=== PATIENT | male | born 1985 | race Caucasian/White ===

== ENCOUNTER 2020-07-31 14:59 | Emergency (ER) | payer OTHER, SELFPAY ==
[2020-07-31 15:32] VITALS: BP 130/80; PULSE 92; RESP 18; TEMP 37.3; O2SAT 95; BMI 40.1
--- NOTE | 2020-07-31 15:51 | XR_ITS ---
EXAMINATION: XR CHEST CLINICAL INFORMATION: Cough. COMPARISON: 04/09/2019 chest radiographs. TECHNIQUE: Frontal view of the chest was obtained. FINDINGS: No significant abnormality is noted involving the heart, lungs, mediastinum, bony thorax or soft tissues. XR/XR chest 1V IMPRESSION: No acute cardiopulmonary process.
--- NOTE | 2020-07-31 16:45 | ED.GENADULT ---
HPI - General Adult General Chief complaint: Upper Respiratory Symptoms Stated complaint: covid symptoms Time Seen by Provider: 07/31/20 15:50 Source: patient Mode of arrival: ambulatory Limitations: no limitations History of Present Illness HPI narrative: 35-year-old male with history of asthma reports that has had some nasal congestion and cough for the past couple days causing his asthma to flare with slight wheezing. He also reports he has had some GI symptoms of diarrhea last week that resolved. In addition he also reports that he has a slight in red area in the left suprapubic area. He denies any abdominal pain, chest pain, shortness of breath. No fever. No recent travel or sick contacts. Additionally requesting COVID test Onset (ago): day(s) Severity: mild Relieving factors: none Exacerbating factors: none Treatments prior to arrival: none Related Data Previous Rx's Medication Instructions Recorded albuterol sulfate 90 mcg/actuation 2 puff INHALATION Q2H PRN #8.5 g 07/09/20 aerosol inhaler cyclobenzaprine 10 mg tablet 10 mg PO BEDTIME PRN 20 Days #20 07/13/20 tab azithromycin [Zithromax Z-Nima] 250 mg PO DAILY 5 Days #6 tab 07/31/20 mupirocin 1 applic TOPICAL BID #15 g 07/31/20 prednisone 60 mg PO DAILY 5 Days #15 tab 07/31/20 Allergies Allergy/AdvReac Type Severity Reaction Status Date / Time doxycycline [DOXYCYCLINE] Allergy Intermediate HIVES Verified 07/31/20 15:32 morphine [MORPHINE] Allergy Intermediate CHEST PAIN Verified 07/31/20 15:32 Penicillins [PENICILLINS] Allergy Intermediate HIVES Verified 07/31/20 15:32 bees Allergy Unknown Swelling Verified 07/31/20 15:32 Doxycycline Hyclate Allergy Unknown Rash Verified 07/31/20 15:32 medical tape Allergy Unknown Rash Verified 07/31/20 15:32 naproxen Allergy Unknown Rash Verified 07/31/20 15:32 Sulfa (Sulfonamide Allergy Unknown Tongue Verified 07/31/20 15:32 Antibiotics) swelling, hives sulfamethoxazole Allergy Unknown HIVES Verified 07/31/20 15:32 [From BACTRIM] trimethoprim [From BACTRIM] Allergy Unknown HIVES Verified 07/31/20 15:32 Hazelnut Allergy Unknown rash Uncoded 04/19/20 00:00 Review of Systems Review of Systems: Constitutional: No Weight loss, No Fever, No Chills, No Night Sweats, No Fatigue, No Malaise ENT/Mouth: No Hearing loss, No Ear Pain, + Nasal Congestion, No Sinus Pain, No Hoarseness, No sore throat, No Rhinorrhea, No Swallowing Difficulty Eyes: No Eye Pain, No Swelling, No Redness, No Foreign Body, No Discharge, No Vision Changes Cardiovascular: No Chest Pain, No SOB, No Dyspnea on Exertion, No Orthopnea, No Edema, No Palpitations Respiratory: mild Cough, No Sputum, + Wheezing, No Smoke Exposure, No Dyspnea Gastrointestinal: No Nausea, No Vomiting, No Diarrhea, No Constipation, No abdominal Pain, No Hematochezia, No Melena Genitourinary: no irregular bleeding, No Dysuria, No Urinary Frequency, No Hematuria, No Urinary Incontinence, No Urgency, No Flank Pain, No Urinary Flow Changes, No Hesitancy Musculoskeletal: No joint pain, No Myalgias, No Joint Swelling Skin: No Skin Lesions, No rash Neuro: No Weakness, No Numbness, No Paresthesias, No Loss of Consciousness, No Dizziness, No Headache Psych: No Anxiety/Panic, No Depression, No SI/HI/AH/VH, No Social Issues Heme/Lymph: No Bruising, No Bleeding,No Lymphadenopathy Endocrine: No Polyuria, No Polydipsia, No Temperature Intolerance Yes all other systems are reviewed and are negative [facility] Past Medical History Source: unable to obtain Medical History (Updated 07/31/20 @ 16:46 by Tima Kellogg NP) Severe persistent allergic asthma Social History Social History Advance Directives: No Advance Directives Information Provided: Yes Physical Exam Vital Signs: Vital Signs: Last Vital Signs Temp 99.2 F 07/31/20 15:32 Pulse 92 07/31/20 15:32 Resp 18 07/31/20 15:32 BP 130/80 07/31/20 15:32 Pulse Ox 95 07/31/20 15:32 Body Mass Index 40.1 Reviewed Const: General: cooperative and healthy appearing; No acute distress or intoxicated appearing Nutritional Appearance: average body habitus Orientation/consciousness: patient oriented x3 HENMT: Head: Yes normal to inspection Ears: hearing grossly normal bilaterally Eyes: General: appearance normal, both eyes and all related structures Visual Stone: normal visual stone by confrontation Neck: Neck: Yes normal visual inspection, No positive Brudzinski's sign, No positive Kernig's sign and No tender Thyroid: Thyroid normal Chest: Chest palpation & inspection: normal inspection of the chest Resp: Effort & Inspection: normal respiratory effort Auscultation: clear to auscultation bilaterally Cardio: Jugular venous distension: no JVD GI: Inspection: Yes normal to inspection Percussion: Yes normal to percussion Auscultation: normal bowel sounds : General: Yes no CVA tenderness Back/Spine/Pelvis: Back: no CVA tenderness Skin: General skin exam: no rashes or lesions noted Full body images: 1. less than 0.5 cm annular area of erythema at the follicular base consistent with folliculitis. Neuro: General: patient oriented x3 Extrem: General: Yes normal to inspection Course Course Course Narrative: Well nontoxic appearing. Chest x-ray negative. Hemodynamically stable. Clear precaution return follow-up instructions provided. Feel comfortable plan. Ambulatory Steady/Ferreira gait. Stable for discharge. Discharge Plan Discharge Clinical Impression: Upper respiratory infection, Folliculitis, Viral syndrome Patient Disposition: Home, Self-Care Instructions: Folliculitis (ED), Viral Syndrome (ED) Prescriptions: New mupirocin 2 % ointment 1 applic topical BID Qty: 15 RF: 0 prednisone 20 mg tablet 60 mg PO DAILY 5 Days Qty: 15 RF: 0 azithromycin [Zithromax Z-Nima] 250 mg tablet 250 mg PO DAILY 5 Days Qty: 6 RF: 0 No Action albuterol sulfate 90 mcg/actuation HFA aerosol inhaler 2 puff inhalation Q2H PRN (Reason: shortness of breath or wheezing) Qty: 8.5 RF: 1 cyclobenzaprine 10 mg tablet 10 mg PO BEDTIME PRN (Reason: muscle spasm) 20 Days Qty: 20 RF: 0 Referrals: Leroy Harley, [employer] MAINTAINER-BC [Primary Care Provider] - 5 days ( phone visit)
== END 2020-07-31 17:44 | disposition home or self-care (01) ==
PROVIDERS: Nurse Practitioner Primary Care; Emergency Provider Internal Medicine; PCP Nurse Practitioner Family
DX: J06.9 Acute upper respiratory infection, unspecified (principal); B34.9 Viral infection, unspecified; L73.9 Follicular disorder, unspecified; R05 Cough; Z20.828 Contact with and (suspected) exposure to other viral communicable diseases; Z79.899 Other long term (current) drug therapy
CPT/HCPCS: 71045; 87071; 87880; 99283; U0003

== ENCOUNTER 2020-08-07 23:04 | Emergency (ER) | payer OTHER, SELFPAY ==
[2020-08-07 23:06] VITALS: BP 137/93; PULSE 88; RESP 16; TEMP 35.9; O2SAT 97; BMI 40.1
--- NOTE | 2020-08-07 23:59 | ECG_ITS ---
Test Reason : CHEST PAIN Blood Pressure : / mmHG Vent. Rate : 085 BPM Atrial Rate : 085 BPM P-R Int : 160 ms QRS Dur : 086 ms QT Int : 362 ms P-R-T Axes : 015 007 001 degrees QTc Int : 430 ms Normal sinus rhythm Normal ECG No previous ECGs available Referred By: Renata Evans Electronically Signed By:PAMELA WALTON MD
--- NOTE | 2020-08-08 00:05 | XR_ITS ---
EXAMINATION: XR CHEST CLINICAL INFORMATION: Cough COMPARISON: 07/31/2020 TECHNIQUE: Frontal view of the chest was obtained. FINDINGS: No focal consolidation, pulmonary edema, or pleural effusion. Stable cardiomediastinal silhouette. XR/XR chest 1V IMPRESSION: Unremarkable examination.
--- NOTE | 2020-08-08 00:13 | ED_ITS ---
HPI - Asthma General Chief Complaint: General Medical Stated Complaint: Cough Time Seen by Provider: 08/07/20 23:56 Source: patient Mode of arrival: ambulatory Limitations: no limitations History of Present Illness HPI Narrative: This is a 35-year-old male with history severe persistent allergic asthma who states that he has just completed a course of antibiotics and 1 week of steroids with recurrence of his epigastric discomfort that he previously had for approximately 6 months. On review of his records chest x- ray, COVID-19 were both negative for any acute findings. Patient denies any recent travel, ear pain, but is having some sore throat that he feels is associated with his cough. Otherwise, he denies any nausea, vomiting, diarrhea, urinary pain/ burning /frequency. Related Data Previous Rx's Medication Instructions Recorded albuterol sulfate 90 mcg/actuation 2 puff INHALATION Q2H PRN #8.5 g 07/09/20 aerosol inhaler mupirocin 1 applic TOPICAL BID #15 g 07/31/20 cyclobenzaprine 10 mg tablet 10 mg PO BEDTIME PRN #20 tab 08/01/20 fluticasone propionate [Flovent 1 inh INHALATION Q12H #2 ea 08/08/20 Diskus] omeprazole 40 mg PO DAILY 30 Days #30 cap 08/08/20 Allergies Allergy/AdvReac Type Severity Reaction Status Date / Time doxycycline [DOXYCYCLINE] Allergy Intermediate HIVES Verified 07/31/20 15:32 morphine [MORPHINE] Allergy Intermediate CHEST PAIN Verified 07/31/20 15:32 Penicillins [PENICILLINS] Allergy Intermediate HIVES Verified 07/31/20 15:32 bees Allergy Unknown Swelling Verified 07/31/20 15:32 Doxycycline Hyclate Allergy Unknown Rash Verified 07/31/20 15:32 medical tape Allergy Unknown Rash Verified 07/31/20 15:32 naproxen Allergy Unknown Rash Verified 07/31/20 15:32 Sulfa (Sulfonamide Allergy Unknown Tongue Verified 07/31/20 15:32 Antibiotics) swelling, hives sulfamethoxazole Allergy Unknown HIVES Verified 07/31/20 15:32 [From BACTRIM] trimethoprim [From BACTRIM] Allergy Unknown HIVES Verified 07/31/20 15:32 Hazelnut Allergy Unknown rash Uncoded 04/19/20 00:00 Review of Systems Review of Systems: Pertinent positives and negatives as stated in HPI 10 point review of systems otherwise negative. PMFSH Past Medical History Source: nursing notes reviewed Medical History Severe persistent allergic asthma Social History Social History Smoking Status: Never smoker Advance Directives: No Advance Directives Information Provided: No Physical Exam Vital Signs: Vital Signs: Last Vital Signs Temp 96.6 F L 08/07/20 23:06 Pulse 84 08/08/20 00:51 Resp 16 08/07/20 23:06 BP 137/93 H 08/07/20 23:06 Pulse Ox 97 08/07/20 23:06 Body Mass Index 40.1 VITAL SIGNS: Reviewed. GENERAL: Well developed, well nourished, in no acute distress. HEAD: Normocephalic/atraumatic, EYES: PERRLA, EOMI intact without pain, no nystagmus/pallor/icterus noted EARS: Ext canals without abnormality, TMs non-bulging and non-erythematous NOSE: Nares patent bilateral OROPHARYNX: no oral lesions noted, posterior pharynx clear and non-erythematous without noted tonsillar enlargement/erythema/exudates NECK: Supple, no adenopathy LUNGS: Normal breath sounds. No adventitious sounds or accessory muscle use. SpO2<97> CARDIOVASCULAR: Regular rate and rhythm without noted murmurs, no JVD or lower extremity edema. ABDOMEN: Soft, non-tender, non-distended with bowel sounds. No rigidity. No guarding. No palpable masses or hernias noted MUSCULOSKELETAL: No tenderness, deformities, or effusions noted on gross inspection. EXTREMITIES: No cyanosis, clubbing or edema. SKIN: Inspection of the skin reveals no rashes, ulcerations, jaundice, pallor, or petechiae. NEUROLOGIC: Alert and oriented x 4. Strength and sensation to light touch were grossly intact x 4. Course Course Course Narrative: This is a 35-year-old male with history and clinical presentation most consistent with likely acid reflux irritating the vocal cords and the back of the throat secondary to steroid course as there are no acute findings on clinical exam to suggest a pharyngitis. Will pursue chest x-ray, EKG, and D-dimer but otherwise patient will receive a an albuterol treatment and a GI cocktail and will likely be discharged on a course of antacids. On review of all investigations there is no acute findings on chest x-ray and D-dimer is negative as well as EKG without any acute changes to suggest ischemia. All results and findings were discussed with the patient at bedside and he was discharged in stable condition. MDM - Asthma Lab Data Labs: Lab Results 08/08/20 Range/Units 00:20 D-Dimer < 200 NG/ML ECG Data Attestation: I personally reviewed and interpreted this ECG as follows: Prior ECG tracings: not available for review Interpretation: normal sinus rhythm, HR - 85, no evidence of acute ischemia, LA/QRS/QTC are within normal limits. Discharge Plan Discharge Clinical Impression: Severe persistent allergic asthma Acid reflux Qualifiers: Esophagitis presence: esophagitis presence not specified Qualified Code(s): K21.9 - Gastro-esophageal reflux disease without esophagitis Patient Disposition: Home, Self-Care Instructions: Diet for Stomach Ulcers and Gastritis (ED), Gastroesophageal Reflux Disease (ED) Additional Instructions: 1. Resume all home medications as prescribed. 2. begin using Flonase daily as an additional adjunct to your Zyrtec to improve symptom control. 3. 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 The patient and/or family acknowledge understanding of results (as applicable), diagnosis, treatment plan, need for follow up, and symptoms that should prompt a return to the emergency room. Prescriptions: New Flovent Diskus 100 mcg/actuation blister with device 1 inh inhalation Q12H Qty: 2 RF: 0 omeprazole 40 mg capsule,delayed release(DR/EC) 40 mg PO DAILY 30 Days Qty: 30 RF: 0 No Action albuterol sulfate 90 mcg/actuation HFA aerosol inhaler 2 puff inhalation Q2H PRN (Reason: shortness of breath or wheezing) Qty: 8.5 RF: 1 cyclobenzaprine 10 mg tablet 10 mg PO BEDTIME PRN (Reason: for muscle spasm) Qty: 20 RF: 0 mupirocin 2 % ointment 1 applic topical BID Qty: 15 RF: 0
[2020-08-08 00:34] LABS: D Dimer < 200 NG/ML
[2020-08-08] MEDS: Albuterol Sulfate (0.083%) 2.5 MG/3 ML VIAL.NEB INHALE (00:50)
[2020-08-08 00:51] VITALS: PULSE 84; O2SAT 98
== END 2020-08-08 02:00 | disposition home or self-care (01) ==
PROVIDERS: Emergency Provider Student in an Organized Health Care Education/Training Program; PCP Nurse Practitioner Family
DX: J45.50 Severe persistent asthma, uncomplicated (principal); K21.9 Gastro-esophageal reflux disease without esophagitis; R05 Cough; Z79.899 Other long term (current) drug therapy; Z20.828 Contact with and (suspected) exposure to other viral communicable diseases
CPT/HCPCS: 36415; 71045; 85379; 93005; 94640; 99283

== ENCOUNTER 2020-09-22 15:48 | Outpatient (REF) | payer OTHER, SELFPAY ==
--- NOTE | 2020-09-22 15:50 | CT_ITS ---
EXAMINATION: CT ABDOMEN WITHOUT CONTRAST CLINICAL INFORMATION: Abdominal pain. COMPARISON: None TECHNIQUE: Contiguous axial thin section helical images of the abdomen were performed with oral 450 mL Redicat contrast. No IV contrast was given. The data set was reformatted in the coronal and sagittal planes and reviewed on an independent workstation. This CT examination was performed using dose optimization techniques as appropriate, variously including the following: *Automated exposure control *Adjustment of mA and/or kV according to patient size (this includes techniques or standardized protocols for targeted exams where dose is matched to indication/reason for exam; i.e. extremities or head) *Use of iterative reconstruction technique DLP: 628 mGy-cm FINDINGS: LUNG BASES: Minimal plate-like atelectasis seen in the right lung base. LIVER, GALLBLADDER, BILIARY TREE: The liver is homogeneous in density, normal size and normal contour. No focal lesion or intrahepatic ductal dilatation seen. The gallbladder is unremarkable. PANCREAS: Pancreas is normal size and density. The peripancreatic fat borders is preserved. SPLEEN: Unremarkable. ADRENAL GLANDS AND KIDNEYS: The adrenal glands are unremarkable. Both kidneys are normal size, shape and position. BOWEL LOOPS: There is scattered stool and gas seen throughout the colon without significant distention. The small bowel loops are normal caliber. The stomach is nondistended. No free air or free fluid seen. LYMPH NODES: No abnormal retroperitoneal pelvic lymph nodes seen. VASCULAR: Unremarkable. BONES: No lytic or sclerotic process seen. CT/CT abdomen wo con IMPRESSION: Unremarkable CT abdomen with oral contrast.
[2020-09-22] MEDS: Barium Sulfate Oral (Mocha) 450 ML ORAL.SUSP PO (16:58)
== END 2020-09-22 15:49 | disposition home or self-care (01) ==
LOC: HO.CT 15:48
PROVIDERS: Visit Provider Nurse Practitioner Family
DX: R10.9 Unspecified abdominal pain (principal)
CPT/HCPCS: 74150

== ENCOUNTER 2020-10-03 22:13 | Emergency (ER) | payer OTHER, SELFPAY ==
[2020-10-03 22:21] VITALS: BP 141/82; PULSE 98; RESP 16; TEMP 36.9; O2SAT 96; BMI 40.1
--- NOTE | 2020-10-03 22:40 | ED.EXTPRO ---
HPI - Extremity Problem General Chief complaint: Extremity Problem Stated complaint: leg pain Time Seen by Provider: 10/03/20 22:27 Source: patient Mode of arrival: ambulatory Limitations: no limitations History of Present Illness HPI Narrative: burning in both legs from knee down worse with walking, no trauma, no new medications, no GI illness, no weakness MD Complaint: extremity pain Onset (ago): day(s) (4) Pain Consistency: constant Location: left, right and lower extremity Quality: burning Radiation: none Relieving factors: nothing Exacerbating factors: walking Associated symptoms: denies other symptoms Related Data Previous Rx's Medication Instructions Recorded albuterol sulfate 90 mcg/actuation 2 puff INHALATION Q2H PRN #8.5 g 07/09/20 aerosol inhaler mupirocin 1 applic TOPICAL BID #15 g 07/31/20 fluticasone propionate [Flovent 1 inh INHALATION Q12H #2 ea 08/08/20 Diskus] cetirizine 10 mg tablet 10 mg PO DAILY #90 tab 08/27/20 omeprazole 40 mg capsule,delayed 40 mg PO DAILY 30 Days #30 cap 09/01/20 release cyclobenzaprine 10 mg tablet 10 mg PO BEDTIME PRN 30 Days #30 09/15/20 tab allopurinol 100 mg tablet 100 mg PO DAILY 90 Days #90 tab 09/20/20 colchicine 0.6 mg tablet 0.6 mg PO DAILY PRN 10 Days #30 tab 09/20/20 diazepam [Valium] 5 mg PO TID PRN #10 tab 10/03/20 Allergies Allergy/AdvReac Type Severity Reaction Status Date / Time doxycycline [DOXYCYCLINE] Allergy Intermediate HIVES Verified 09/01/20 10:41 morphine [MORPHINE] Allergy Intermediate CHEST PAIN Verified 09/01/20 10:41 Penicillins [PENICILLINS] Allergy Intermediate HIVES Verified 09/01/20 10:41 bees Allergy Unknown Swelling Verified 09/01/20 10:41 Doxycycline Hyclate Allergy Unknown Rash Verified 09/01/20 10:41 hazelnut Allergy Unknown Rash Verified 09/01/20 10:41 medical tape Allergy Unknown Rash Verified 09/01/20 10:41 naproxen Allergy Unknown Rash Verified 09/01/20 10:41 Sulfa (Sulfonamide Allergy Unknown Tongue Verified 09/01/20 10:41 Antibiotics) swelling, hives sulfamethoxazole Allergy Unknown HIVES Verified 09/01/20 10:41 [From BACTRIM] trimethoprim [From BACTRIM] Allergy Unknown HIVES Verified 09/01/20 10:41 Review of Systems Review of Systems: Constitutional : No Fever, No Chills ENT/Mouth : No Ear Pain, No Hoarseness, No sore throat Eyes: No Eye Pain, No Swelling, No Redness, No Foreign Body Cardiovascular : No Chest Pain, No SOB Respiratory : No Cough, No Dyspnea Gastrointestinal : No Nausea, No Vomiting, No Diarrhea, No abdominal Pain Genitourinary : No Dysuria, No Hematuria Musculoskeletal : positive joint pain (right knee feels sore at medial aspect along tibia), No Myalgias, No Joint Swelling Skin : No Skin lacerations, No rash Neuro : No Weakness, No Numbness, No Loss of Consciousness, No Dizziness, No Headache Psych : No Anxiety/Panic, No Depression All other systems reviewed and are negative [facility] Past Medical History Attestation statement: The following information was validated with the patient. Medical History Left carpal tunnel syndrome Medial epicondylitis, left elbow Severe persistent allergic asthma Surgical History History of inguinal hernia repair History of shoulder surgery S/P debridement Family History Family History Father Diabetes mellitus Mother No problems noted. Maternal Grandmother CVD (cardiovascular disease) Cancer Brother No problems noted. Sister No problems noted. Son No problems noted. Daughter No problems noted. Social History Social History (Updated 10/03/20 @ 22:40 by Ngoc Kaufman DO) Smoking Status: Former smoker Use of substances other than those prescribed or required for medical reasons: No Advance Directives: No Advance Directives Information Provided: No Physical Exam Vital Signs: Vital Signs: Last Vital Signs Temp 98.4 F 10/03/20 22:21 Pulse 98 10/03/20 22:21 Resp 16 10/03/20 22:21 BP 141/82 H 10/03/20 22:21 Pulse Ox 96 10/03/20 22:21 Body Mass Index 40.1 Appearance: Alert. Oriented X3. No acute distress. Eyes: Pupils equal, round and reactive to light. ENT: Pharynx normal. Neck: Normal inspection. Neck supple. CVS: Normal heart rate and rhythm. Pulses normal. Respiratory: No respiratory distress. Breath sounds normal. Abdomen: Soft and nontender. Skin: Skin warm and dry. Normal skin color. Normal skin turgor. Extremities: No lower extremity edema. No calf ttp SILT throughout, no swelling, no rash, no clonus Neuro: Oriented X 3. No motor deficit. No sensory deficit. Course Course Course Narrative: no weakness, sensation intact, doubt GBS burning pain mostly when walking, lyme pending will refer to PCP MDM - Extremity (Nontraumatic) MDM Narrative Medical decision making narrative: 35 yo male with GERD, allergies, asthma here with burning in both legs x 4 days worse with walking, distal pulses 2+, no signs of infection or swelling - does not have diabetes and sees his doctor regularly, no signs of infection, bounding pulses doubt PVD, no known neuropathy, will obtain lytes and lyme test, give MR and refer to PCP Lab Data Result diagrams: 10/03/20 22:50 10/03/20 22:50 Labs: Lab Results 10/03/20 10/03/20 10/03/20 Range/Units 22:50 22:50 23:20 WBC 8.1 (4.8-10.8) X10*3/uL RBC 5.21 (4.60-5.80) X10*6/uL Hgb 16.0 (14.0-18.0) g/dl Hct 48.6 (42-52) % MCV 93.3 (80-98) fL MCH 30.7 (27.0-33.0) pg MCHC 32.9 (31.0-36.0) g/dl RDW 11.9 (11.0-16.0) % Plt Count 330 (160-400) X10*3/uL MPV 9.5 (9.4-12.4) fL Immature Gran % (Auto) 0.2 (0.0-0.4) % Neut % (Auto) 68.5 (45-73) % Lymph % (Auto) 19.0 L (20-40) % [place] % (Auto) 11.8 H (2-11) % Eos % (Auto) 0.0 (0-4) % Baso % (Auto) 0.5 (0-2) % Lymph # (Auto) 1.5 (1.2-4.9) X10*3/uL [place] # (Auto) 1.0 (0.1-1.2) X10*3/uL Eos # (Auto) 0.0 (0.0-0.4) X10*3/uL Baso # (Auto) 0.0 (0.0-0.2) X10*3/uL Abs Immat Gran (auto) 0.02 (0.00-0.03) X10*3/uL Absolute Neuts (auto) 5.5 (2.0-8.3) X10*3/uL Absolute Nucleated RBC 0.000 (0.0-0.012) X10*3/uL Nucleated RBC % (auto) 0.0 (0.0-0.2) /100WBC Sodium 141 (135-145) mmol/L Potassium 4.4 (3.3-5.1) mmol/l Chloride 106 (96-108) mmol/L Carbon Dioxide 27 (22-29) mmol/L Anion Gap 12 (12-20) BUN 26 H (9-16) mg/dL Creatinine 1.13 (0.5-1.4) mg/dL Estim Creat Clear Calc 123.2 Estimated GFR > 60 Random Glucose 103 (60-115) mg/dL Calcium 8.6 (8.4-10.2) mg/dL Magnesium 2.6 (1.6-2.6) mg/dL Total Bilirubin 0.5 (0.0-1.0) mg/dL Direct Bilirubin 0.2 (0.0-0.5) mg/dL AST 18 (5-37) U/L ALT 17 (0-40) U/L Alkaline Phosphatase 102 (39-117) U/L Total Protein 6.7 (6.5-8.0) g/dL Albumin 4.3 (3.5-5.0) g/dL TSH 1.83 (0.32-4.0) uIU/mL COVID-19 ([facility]) Negative (Negative) COVID-19 Clin Com See Note Discharge Plan Discharge Clinical Impression: Burning pain Patient Disposition: Home, Self-Care Instructions: Paresthesia (ED) Additional Instructions: return to ED for any worsening symptoms or concerns you need to follow up with your primary care doctor, your lyme test may take 2 to 3 days to result if positive we will call you Prescriptions: New diazepam [Valium] 5 mg tablet 5 mg PO TID PRN (Reason: muscle spasm) Qty: 10 RF: 0 No Action albuterol sulfate 90 mcg/actuation HFA aerosol inhaler 2 puff inhalation Q2H PRN (Reason: shortness of breath or wheezing) Qty: 8.5 RF: 1 cetirizine 10 mg tablet 10 mg PO DAILY Qty: 90 RF: 2 cyclobenzaprine 10 mg tablet 10 mg PO BEDTIME PRN (Reason: muscle spasm) 30 Days Qty: 30 RF: 1 allopurinol 100 mg tablet 100 mg PO DAILY 90 Days Qty: 90 RF: 0 colchicine 0.6 mg tablet 0.6 mg PO DAILY PRN (Reason: gout flare) 10 Days Qty: 30 RF: 0 mupirocin 2 % ointment 1 applic topical BID Qty: 15 RF: 0 Flovent Diskus 100 mcg/actuation blister with device 1 inh inhalation Q12H Qty: 2 RF: 0 omeprazole 40 mg capsule,delayed release(DR/EC) 40 mg PO DAILY 30 Days Qty: 30 RF: 4 Referrals: Leroy Harley, MECH[employer]ICAL FACILITIES TECHNICIAN-BC [Primary Care Provider] - 3 days Stand Alone Forms: Work/School Release
[2020-10-03 22:56] LABS: Basophils Percent Auto 0.5 % (0-2); Hematocrit 48.6 % (42-52); Imm Gran Abs Auto 0.02 X10*3/uL (0.00-0.03); Imm Gran Pct Auto 0.2 % (0.0-0.4); Lymphocytes Absolute Auto 1.5 X10*3/uL (1.2-4.9); MANUAL DIFF FLAG NO; Mean Corpuscular HGB Conc 32.9 g/dl (31.0-36.0); Mean Corpuscular Hemoglobin 30.7 pg (27.0-33.0); Mean Corpuscular Volume 93.3 fL (80-98); Mean Platelet Volume 9.5 fL (9.4-12.4); Monocytes Percent Auto 11.8 % (2-11); Neutrophils Absolute Auto 5.5 X10*3/uL (2.0-8.3); Neutrophils Percent Auto 68.5 % (45-73); Platelet Count 330 X10*3/uL (160-400); Red Blood Count 5.21 X10*6/uL (4.60-5.80); Red Cell Distribution Width 11.9 % (11.0-16.0); White Blood Count 8.1 X10*3/uL (4.8-10.8)
[2020-10-03] MEDS: diazePAM 5 MG TABLET PO (23:18)
[2020-10-03 23:23] LABS: Alanine Aminotransferase 17 U/L (0-40); Albumin Level 4.3 g/dL (3.5-5.0); Alkaline Phosphatase 102 U/L (39-117); Anion Gap 12 (12-20); Aspartate Amino Transferase 18 U/L (5-37); Bilirubin Direct 0.2 mg/dL (0.0-0.5); Bilirubin Total 0.5 mg/dL (0.0-1.0); Blood Urea Nitrogen 26 mg/dL (9-16); Calcium 8.6 mg/dL (8.4-10.2); Carbon Dioxide 27 mmol/L (22-29); Chloride 106 mmol/L (96-108); Creatinine Clr Calc Pharmacy 123.2; Estimated Glomerular Filt Rate > 60; Glucose Random 103 mg/dL (60-115); Magnesium 2.6 mg/dL (1.6-2.6); Potassium 4.4 mmol/l (3.3-5.1); Sodium 141 mmol/L (135-145); Total Protein 6.7 g/dL (6.5-8.0)
[2020-10-03 23:41] LABS: COVID-19 Test Negative (Negative)
[2020-10-03 23:43] LABS: Thyroid Stimulating Hormone 1.83 uIU/mL (0.32-4.0)
[2020-10-05 13:07] LABS: Lyme Abs Screen <0.90 index
== END 2020-10-04 00:07 | disposition home or self-care (01) ==
PROVIDERS: Emergency Provider Emergency Medicine; PCP Nurse Practitioner Family
DX: M79.605 Pain in left leg (principal); M79.604 Pain in right leg; Z79.899 Other long term (current) drug therapy; Z87.891 Personal history of nicotine dependence
CPT/HCPCS: 36415; 80048; 80076; 83735; 84443; 85025; 86618; 87635; 99284

== ENCOUNTER → 2020-10-18 07:59 | Outpatient (REF) | payer OTHER, SELFPAY ==
--- NOTE | ~2020-10-18 | NM_ITS ---
EXAMINATION: RADIONUCLIDE SOLID FOOD GASTRIC EMPTYING 4-HOUR STUDY CLINICAL INFORMATION: Unspecified abdominal pain. COMPARISON: No previous gastric emptying study is available for comparison. TECHNIQUE: A standard meal consisting of 4 oz of Egg Beaters brand equivalent tagged with 1.0 mCi Tc-99m Sulfur Colloid, 8 oz water and 2 slices of toast with jelly was administered orally to the patient. Images were obtained using a dual head gamma camera in the anterior and posterior projections over of the stomach immediately post ingestion and at hourly intervals up to 4 hours post ingestion. The anterior and posterior counts at each time interval were averaged using the geometric mean and expressed as percentage of the immediate post ingestion counts. FINDINGS: There is good visualization of activity in the stomach immediately post ingestion. As the study progresses, there is good clearance of activity from the stomach and visualization of progressively increasing small bowel activity. By the end of the study, there is almost no retention noted in the stomach. Retention in the stomach at each time interval was: 1 hour 98% (normal 37%-90%) 2 hours 66% (normal 30%-60%) 3 hours 35% 4 hours 9% (normal 0%-10%) NM/NM gastric emptying study IMPRESSION: Normal 4-hour solid food gastric emptying study.
== END ==
LOC: HO.NUCMED 07:59
PROVIDERS: PCP Nurse Practitioner Family; Visit Provider Nurse Practitioner Family
DX: R10.9 Unspecified abdominal pain (principal); R11.2 Nausea with vomiting, unspecified
CPT/HCPCS: 78264; A9541

== ENCOUNTER 2020-11-18 23:50 | Emergency (ER) | payer OTHER, SELFPAY ==
--- NOTE | ~2020-11-18 | XR_ITS ---
EXAMINATION: XR CHEST CLINICAL INFORMATION: Shortness of breath COMPARISON: 08/08/2020 TECHNIQUE: Frontal view of the chest was obtained. FINDINGS: The lungs are clear with no focal consolidation. No evidence of pneumothorax, pulmonary edema, or pleural effusions. The cardiomediastinal silhouette is unremarkable. No acute osseous findings. XR/XR chest 1V IMPRESSION: No acute cardiopulmonary findings.
--- NOTE | ~2020-11-18 | CT_ITS ---
EXAMINATION: CT ANGIOGRAM OF THE CHEST WITH AND WITHOUT CONTRAST (CT PULMONARY ANGIOGRAM FOR PE) CLINICAL INFORMATION: Reason for Exam Shortness of breath, elevated D-dimer COMPARISON: 11/12/2019 TECHNIQUE: Prior to contrast administration, noncontrast localization images were obtained. Subsequently, multidetector volumetric imaging was performed from the thoracic inlet to below the diaphragms following the administration of 65 mL Omnipaque 350 intravenous contrast. No contrast reaction reported Sagittal, coronal, and MIP oblique sagittal reformatted images were obtained on the CT workstation, uploaded to PACS, and reviewed. This CT examination was performed using dose optimization techniques as appropriate, variously including the following: *Automated exposure control *Adjustment of mA and/or kV according to patient size (this includes techniques or standardized protocols for targeted exams where dose is matched to indication/reason for exam; i.e. extremities or head) *Use of iterative reconstruction technique Total exam dose-length product 508 mGy-cm FINDINGS: QUALITY OF STUDY/CONTRAST BOLUS: Satisfactory. PULMONARY ARTERIES: No central or segmental pulmonary emboli. THORACIC AORTA: No aneurysm or dissection. LUNG: There are scattered patchy regions of consolidation and groundglass opacity bilaterally. Curvilinear opacities in the lingula, right middle lobe, and left lower lobe are most consistent with subsegmental atelectasis. PLEURA: No pleural effusion or pneumothorax. MEDIASTINUM: The visualized thyroid gland is unremarkable. There are subcentimeter mediastinal lymph nodes within the range of normal variation. Cardiac size is within normal limits; no pericardial effusion. CHEST WALL/AXILLA: No axillary or internal mammary lymphadenopathy. OSSEOUS STRUCTURES: No acute or suspicious osseous abnormality. UPPER ABDOMEN: Unremarkable. No reflux of contrast into the hepatic veins to suggest elevated right heart pressures. CT/CT angio chest PE protocol IMPRESSION: 1. No pulmonary embolus identified. 2. Scattered patchy regions of consolidation and groundglass bilaterally, favoring an infectious etiology. This appearance can be seen with Covid pneumonia. VTE: negative
[2020-11-19 01:53] VITALS: BP 148/96; PULSE 98; RESP 18; TEMP 37.2; O2SAT 96; BMI 40.1
--- NOTE | 2020-11-19 02:14 | ED.SOB ---
HPI - SOB/Dyspnea General Chief Complaint: General Medical Stated Complaint: Sob Time Seen by Provider: 11/19/20 01:02 Source: patient Mode of arrival: ambulatory History of Present Illness HPI Narrative: This is a 35-year-old male who presents with 1 week of increasing shortness of breath without fevers, chills, sore throat, new cough, wheezing. Patient's history is significant for having undergone left lower extremity surgery 10/26 and has only been on daily aspirin. In addition, patient reports corresponding anterior chest wall discomfort but denies worsening with deep inspiration or movement. The shortness of breath has been associated with lightheadedness and some mild nausea. Otherwise, he denies GI and symptoms. Related Data Previous Rx's Medication Instructions Recorded albuterol sulfate 90 mcg/actuation 2 puff INHALATION Q2H PRN #8.5 g 07/09/20 aerosol inhaler mupirocin 1 applic TOPICAL BID #15 g 07/31/20 fluticasone propionate [Flovent 1 inh INHALATION Q12H #2 ea 08/08/20 Diskus] cetirizine 10 mg tablet 10 mg PO DAILY #90 tab 08/27/20 cyclobenzaprine 10 mg tablet 10 mg PO BEDTIME PRN 30 Days #30 09/15/20 tab allopurinol 100 mg tablet 100 mg PO DAILY 90 Days #90 tab 09/20/20 colchicine 0.6 mg tablet 0.6 mg PO DAILY PRN 10 Days #30 tab 09/20/20 diazepam [Valium] 5 mg PO TID PRN #10 tab 10/03/20 omeprazole 40 mg capsule,delayed 40 mg PO DAILY #90 cap 11/01/20 release prednisone 40 mg PO DAILY 4 Days #8 tab 11/19/20 Allergies Allergy/AdvReac Type Severity Reaction Status Date / Time doxycycline [DOXYCYCLINE] Allergy Intermediate HIVES Verified 09/01/20 10:41 morphine [MORPHINE] Allergy Intermediate CHEST PAIN Verified 09/01/20 10:41 Penicillins [PENICILLINS] Allergy Intermediate HIVES Verified 09/01/20 10:41 bees Allergy Unknown Swelling Verified 09/01/20 10:41 Doxycycline Hyclate Allergy Unknown Rash Verified 09/01/20 10:41 hazelnut Allergy Unknown Rash Verified 09/01/20 10:41 medical tape Allergy Unknown Rash Verified 09/01/20 10:41 naproxen Allergy Unknown Rash Verified 09/01/20 10:41 Sulfa (Sulfonamide Allergy Unknown Tongue Verified 09/01/20 10:41 Antibiotics) swelling, hives sulfamethoxazole Allergy Unknown HIVES Verified 09/01/20 10:41 [From BACTRIM] trimethoprim [From BACTRIM] Allergy Unknown HIVES Verified 09/01/20 10:41 Review of Systems Review of Systems: Pertinent positives and negatives as stated in the HPI and 10 point review systems is otherwise negative. [facility] Past Medical History Source: nursing notes reviewed Medical History Left carpal tunnel syndrome Medial epicondylitis, left elbow LAM (obstructive sleep apnea) RLS (restless legs syndrome) Severe persistent allergic asthma Surgical History History of inguinal hernia repair History of shoulder surgery S/P debridement Family History Family History Father Diabetes mellitus Mother No problems noted. Maternal Grandmother CVD (cardiovascular disease) Cancer Brother No problems noted. Sister No problems noted. Son No problems noted. Daughter No problems noted. Social History Social History Alcohol intake: never Smoking Status: Former smoker Smoked in Last 30 Days: No Advance Directives: No Physical Exam Vital Signs: Vital Signs: Last Vital Signs Temp 98.9 F 11/19/20 01:53 Pulse 97 11/19/20 02:44 Resp 18 11/19/20 01:53 BP 148/96 H 11/19/20 01:53 Pulse Ox 96 11/19/20 01:53 Body Mass Index 40.1 VITAL SIGNS: Reviewed. GENERAL: Obese, Well developed, well nourished, in no acute distress. HEAD: Normocephalic/atraumatic EYES: PERRLA, EOMI EARS: Ext canals without abnormality, TMs non-bulging and non-erythematous NOSE: Nares patent bilateral OROPHARYNX: no oral lesions noted, posterior pharynx clear NECK: Supple, no adenopathy LUNGS: Normal breath sounds, no wheezing, no adventitious sounds or accessory muscle use. SpO2<96> CARDIOVASCULAR: Regular rate and rhythm without noted murmurs ABDOMEN: Soft, non-tender, non-distended with bowel sounds. MUSCULOSKELETAL: No tenderness, deformities, or effusions noted on gross inspection. EXTREMITIES: No cyanosis, clubbing or edema. SKIN: Inspection of the skin reveals no rashes NEUROLOGIC: Alert and oriented x 4. Course Course Course Narrative: This is a 35-year-old male with history and clinical presentation concerning for possible PE and slightly less suspicion for acute asthma exacerbation. On review of all investigations there are no acute findings, and on re-evaluation patient reports some improvement with albuterol treatment. Patient will receive initial prednisone here in the emergency department and then will be discharged home with additional 4 days. Patient was informed of all results and discharged in stable condition. MDM - SOB/Dyspnea Lab Data Result diagrams: 11/19/20 02:16 11/19/20 02:16 Labs: Lab Results 11/19/20 11/19/20 11/19/20 Range/Units 02:16 02:16 02:16 WBC 3.7 L (4.8-10.8) X10*3/uL RBC 5.06 (4.60-5.80) X10*6/uL Hgb 15.7 (14.0-18.0) g/dl Hct 46.4 (42-52) % MCV 91.7 (80-98) fL MCH 31.0 (27.0-33.0) pg MCHC 33.8 (31.0-36.0) g/dl RDW 12.4 (11.0-16.0) % Plt Count 218 D (160-400) X10*3/uL MPV 9.5 (9.4-12.4) fL Immature Gran % (Auto) 0.0 (0.0-0.4) % Neut % (Auto) 60.8 (45-73) % Lymph % (Auto) 23.4 (20-40) % Alcorn % (Auto) 12.9 H (2-11) % Eos % (Auto) 2.4 (0-4) % Baso % (Auto) 0.5 (0-2) % Lymph # (Auto) 0.9 L (1.2-4.9) X10*3/uL Alcorn # (Auto) 0.5 (0.1-1.2) X10*3/uL Eos # (Auto) 0.1 (0.0-0.4) X10*3/uL Baso # (Auto) 0.0 (0.0-0.2) X10*3/uL Abs Immat Gran (auto) 0.00 (0.00-0.03) X10*3/uL Absolute Neuts (auto) 2.3 (2.0-8.3) X10*3/uL Absolute Nucleated RBC 0.000 (0.0-0.012) X10*3/uL Nucleated RBC % (auto) 0.0 (0.0-0.2) /100WBC D-Dimer 335 NG/ML Sodium 142 (135-145) mmol/L Potassium 4.3 (3.3-5.1) mmol/L Chloride 105 (96-108) mmol/L Carbon Dioxide 29 (22-29) mmol/L Anion Gap 12 (12-20) BUN 17 H (9-16) mg/dL Creatinine 1.12 (0.5-1.4) mg/dL Estim Creat Clear Calc 124.3 Estimated GFR > 60 Random Glucose 98 (60-115) mg/dL Calcium 8.7 (8.4-10.2) mg/dL Total Bilirubin 0.4 (0.0-1.0) mg/dL AST 27 D (5-37) U/L ALT 23 (0-40) U/L Alkaline Phosphatase 91 (39-117) U/L Total Protein 7.0 (6.5-8.0) g/dL Albumin 4.4 (3.5-5.0) g/dL Discharge Plan Discharge Clinical Impression: Pneumonia due to COVID-19 virus Asthma Qualifiers: Asthma severity: mild Asthma persistence: unspecified Asthma complication type: with acute exacerbation Qualified Code(s): J45.901 - Unspecified asthma with (acute) exacerbation Patient Disposition: Home, Self-Care Instructions: Asthma (ED) Additional Instructions: 1. Resume all home medications as prescribed. 2. Please follow-up with your primary care provider in the next 2-3 days for re-evaluation. Do not hesitate to return to the emergency department should you develop any acute worsening of her symptoms. Prescriptions: New prednisone 20 mg tablet 40 mg PO DAILY 4 Days Qty: 8 RF: 0 No Action albuterol sulfate 90 mcg/actuation HFA aerosol inhaler 2 puff inhalation Q2H PRN (Reason: shortness of breath or wheezing) Qty: 8.5 RF: 1 cetirizine 10 mg tablet 10 mg PO DAILY Qty: 90 RF: 2 cyclobenzaprine 10 mg tablet 10 mg PO BEDTIME PRN (Reason: muscle spasm) 30 Days Qty: 30 RF: 1 allopurinol 100 mg tablet 100 mg PO DAILY 90 Days Qty: 90 RF: 0 colchicine 0.6 mg tablet 0.6 mg PO DAILY PRN (Reason: gout flare) 10 Days Qty: 30 RF: 0 omeprazole 40 mg capsule,delayed release(DR/EC) 40 mg PO DAILY Qty: 90 RF: 1 mupirocin 2 % ointment 1 applic topical BID Qty: 15 RF: 0 diazepam [Valium] 5 mg tablet 5 mg PO TID PRN (Reason: muscle spasm) Qty: 10 RF: 0 Flovent Diskus 100 mcg/actuation blister with device 1 inh inhalation Q12H Qty: 2 RF: 0 Referrals: Leroy Harley, [employer] [Primary Care Provider] - 2 days (Re-evaluation)
[2020-11-19 02:20] LABS: MANUAL DIFF FLAG NO
[2020-11-19 02:22] LABS: Basophils Percent Auto 0.5 % (0-2); Eosinophils Absolute Auto 0.1 X10*3/uL (0.0-0.4); Eosinophils Percent Auto 2.4 % (0-4); Hematocrit 46.4 % (42-52); Hemoglobin 15.7 g/dl (14.0-18.0); Lymphocytes Absolute Auto 0.9 X10*3/uL (1.2-4.9); Lymphocytes Percent Auto 23.4 % (20-40); Mean Corpuscular HGB Conc 33.8 g/dl (31.0-36.0); Mean Corpuscular Volume 91.7 fL (80-98); Mean Platelet Volume 9.5 fL (9.4-12.4); Monocytes Absolute Auto 0.5 X10*3/uL (0.1-1.2); Monocytes Percent Auto 12.9 % (2-11); Neutrophils Absolute Auto 2.3 X10*3/uL (2.0-8.3); Neutrophils Percent Auto 60.8 % (45-73); Platelet Count 218 X10*3/uL (160-400); Red Blood Count 5.06 X10*6/uL (4.60-5.80); Red Cell Distribution Width 12.4 % (11.0-16.0); White Blood Count 3.7 X10*3/uL (4.8-10.8)
[2020-11-19 02:40] LABS: D Dimer 335 NG/ML
[2020-11-19] MEDS: Albuterol Sulfate 90 MCG 8 GM INHALER 4 PUFF INHALE (02:42)
[2020-11-19 02:44] VITALS: PULSE 97; O2SAT 100
[2020-11-19 02:45] LABS: Alanine Aminotransferase 23 U/L (0-40); Albumin Level 4.4 g/dL (3.5-5.0); Alkaline Phosphatase 91 U/L (39-117); Anion Gap 12 (12-20); Aspartate Amino Transferase 27 U/L (5-37); Bilirubin Total 0.4 mg/dL (0.0-1.0); Blood Urea Nitrogen 17 mg/dL (9-16); Calcium 8.7 mg/dL (8.4-10.2); Carbon Dioxide 29 mmol/L (22-29); Chloride 105 mmol/L (96-108); Creatinine Clr Calc Pharmacy 124.3; Estimated Glomerular Filt Rate > 60; Glucose Random 98 mg/dL (60-115); Potassium 4.3 mmol/L (3.3-5.1); Sodium 142 mmol/L (135-145)
[2020-11-19] MEDS: predniSONE 20 MG TABLET 40 MG PO (04:49)
== END 2020-11-19 04:53 | disposition home or self-care (01) ==
PROVIDERS: Emergency Provider Student in an Organized Health Care Education/Training Program; PCP Nurse Practitioner Family
DX: U07.1 COVID-19 (principal); J12.82 Pneumonia due to coronavirus disease 2019; J45.901 Unspecified asthma with (acute) exacerbation
CPT/HCPCS: 36415; 71045; 71275; 80053; 85025; 85379; 94640; 99284; Q9967

== ENCOUNTER 2020-11-21 19:48 | Emergency (ER) | payer OTHER, SELFPAY ==
--- NOTE | ~2020-11-21 | XR_ITS ---
EXAMINATION: XR CHEST CLINICAL INFORMATION: Covid 19 positive COMPARISON: Chest x-ray 11/19/2020. CT chest 12/20/2020 TECHNIQUE: Frontal portable view of the chest was obtained. 8:21 PM FINDINGS: There is an area of developing density in the right mid lung adjacent to the hilum which is new since the exam of 11/19/2020. Left lung is normally aerated. There is no pleural effusion. The heart size is normal. There is no pulmonary vascular congestion. XR/XR chest 1V IMPRESSION: There is a new Ovoid airspace opacity in the right mid lower lung.
--- NOTE | 2020-11-21 20:13 | ED.SOB ---
HPI - SOB/Dyspnea General Chief Complaint: General Medical Stated Complaint: Sob/Fever Time Seen by Provider: 11/21/20 20:13 Mode of arrival: ambulatory History of Present Illness HPI Narrative: Patient with history of asthma COVID-19 positive on 11/12 was seen here on 11/19 had a CTA chest done negative for PE showed ground-glass inflammation patient was started on prednisone since then. Comes here now for the diarrhea low-grade fever cough and shortness of breath patient is on prednisone MD elicited complaint: shortness of breath and cough Related Data Previous Rx's Medication Instructions Recorded albuterol sulfate 90 mcg/actuation 2 puff INHALATION Q2H PRN #8.5 g 07/09/20 aerosol inhaler mupirocin 1 applic TOPICAL BID #15 g 07/31/20 fluticasone propionate [Flovent 1 inh INHALATION Q12H #2 ea 08/08/20 Diskus] cetirizine 10 mg tablet 10 mg PO DAILY #90 tab 08/27/20 cyclobenzaprine 10 mg tablet 10 mg PO BEDTIME PRN 30 Days #30 09/15/20 tab allopurinol 100 mg tablet 100 mg PO DAILY 90 Days #90 tab 09/20/20 colchicine 0.6 mg tablet 0.6 mg PO DAILY PRN 10 Days #30 tab 09/20/20 diazepam [Valium] 5 mg PO TID PRN #10 tab 10/03/20 omeprazole 40 mg capsule,delayed 40 mg PO DAILY #90 cap 11/01/20 release prednisone 40 mg PO DAILY 4 Days #8 tab 11/19/20 azithromycin [Zithromax] 250 mg PO DAILY 4 Days #4 tab 11/21/20 benzonatate [Tessalon Perles] 100 mg PO TID PRN #20 cap 11/21/20 cefuroxime axetil 500 mg PO BID 7 Days #14 tab 11/21/20 dexamethasone [Decadron] 6 mg PO DAILY #7 tab 11/21/20 Allergies Allergy/AdvReac Type Severity Reaction Status Date / Time doxycycline [DOXYCYCLINE] Allergy Intermediate HIVES Verified 09/01/20 10:41 morphine [MORPHINE] Allergy Intermediate CHEST PAIN Verified 09/01/20 10:41 Penicillins [PENICILLINS] Allergy Intermediate HIVES Verified 09/01/20 10:41 bees Allergy Unknown Swelling Verified 09/01/20 10:41 Doxycycline Hyclate Allergy Unknown Rash Verified 09/01/20 10:41 hazelnut Allergy Unknown Rash Verified 09/01/20 10:41 medical tape Allergy Unknown Rash Verified 09/01/20 10:41 naproxen Allergy Unknown Rash Verified 09/01/20 10:41 Sulfa (Sulfonamide Allergy Unknown Tongue Verified 09/01/20 10:41 Antibiotics) swelling, hives sulfamethoxazole Allergy Unknown HIVES Verified 09/01/20 10:41 [From BACTRIM] trimethoprim [From BACTRIM] Allergy Unknown HIVES Verified 09/01/20 10:41 Review of Systems Review of Systems: Constitutional : No Weight loss, + Fever, No Chills ENT/Mouth : No sore throat, No Rhinorrhea Eyes: No Eye Pain, No Swelling Cardiovascular : No Chest Pain, no palpitations Respiratory : + Cough, No Sputum, no shortness of breath Gastrointestinal : no Nausea, No Vomiting, No Diarrhea, No abdominal Pain, no black stools Genitourinary : No Dysuria, No Urinary Frequency Musculoskeletal : No joint pain, No Myalgias, No Joint Swelling Skin : No Skin Lesions, No rash Neuro : No Weakness, No Numbness, No Dizziness, No Headache Psych : No Anxiety/Panic, No Depression Heme/Lymph: No Bruising, No Lymphadenopathy Endocrine : No Polyuria, No Polydipsia All other systems reviewed and are negative PMFSH Past Medical History Medical History Left carpal tunnel syndrome Medial epicondylitis, left elbow LAM (obstructive sleep apnea) RLS (restless legs syndrome) Severe persistent allergic asthma Surgical History History of inguinal hernia repair History of shoulder surgery S/P debridement Family History Family History Father Diabetes mellitus Mother No problems noted. Maternal Grandmother CVD (cardiovascular disease) Cancer Brother No problems noted. Sister No problems noted. Son No problems noted. Daughter No problems noted. Social History Social History Alcohol intake: never Smoking Status: Former smoker Advance Directives: No Advance Directives Information Provided: No Physical Exam Vital Signs: Vital Signs: Last Vital Signs Pulse 94 11/21/20 20:56 Resp 18 11/21/20 20:56 BP 138/91 H 11/21/20 20:56 Pulse Ox 95 11/21/20 20:56 Body Mass Index 3.7 Appearance: Alert. Oriented X3. No acute distress. Eyes: Pupils equal, round and reactive to light. ENT: Pharynx normal. Neck: Normal inspection. Neck supple. CVS: Normal heart rate and rhythm. Pulses normal. Respiratory: No respiratory distress. Breath sounds normal. Abdomen: Soft and nontender. Bowel sounds are present, no mass palpable, no CVA tenderness Skin: Skin warm and dry. Normal skin color. Normal skin turgor. Extremities: No lower extremity edema. Neuro: Oriented X 3. No motor deficit. No sensory deficit. MDM - SOB/Dyspnea MDM Narrative Medical decision making narrative: Patient with COVID-19 pneumonia saturating 95% room air will discharge him home on Zithromax Ceftin and Decadron Differential Diagnosis Differential diagnosis: Likely pneumonia Discharge Plan Discharge Clinical Impression: Pneumonia due to COVID-19 virus Patient Disposition: Home, Self-Care Instructions: COVID-19 (Coronavirus Disease 2019) (ED) Additional Instructions: Take medication as prescribed keep hydrated and follow with PCP if not better Prescriptions: New dexamethasone [Decadron] 6 mg tablet 6 mg PO DAILY Qty: 7 RF: 0 azithromycin [Zithromax] 250 mg tablet 250 mg PO DAILY 4 Days Qty: 4 RF: 0 cefuroxime axetil 500 mg tablet 500 mg PO BID 7 Days Qty: 14 RF: 0 benzonatate [Tessalon Perles] 100 mg capsule 100 mg PO TID PRN (Reason: cough) Qty: 20 RF: 0 No Action albuterol sulfate 90 mcg/actuation HFA aerosol inhaler 2 puff inhalation Q2H PRN (Reason: shortness of breath or wheezing) Qty: 8.5 RF: 1 cetirizine 10 mg tablet 10 mg PO DAILY Qty: 90 RF: 2 cyclobenzaprine 10 mg tablet 10 mg PO BEDTIME PRN (Reason: muscle spasm) 30 Days Qty: 30 RF: 1 allopurinol 100 mg tablet 100 mg PO DAILY 90 Days Qty: 90 RF: 0 colchicine 0.6 mg tablet 0.6 mg PO DAILY PRN (Reason: gout flare) 10 Days Qty: 30 RF: 0 omeprazole 40 mg capsule,delayed release(/EC) 40 mg PO DAILY Qty: 90 RF: 1 mupirocin 2 % ointment 1 applic topical BID Qty: 15 RF: 0 diazepam [Valium] 5 mg tablet 5 mg PO TID PRN (Reason: muscle spasm) Qty: 10 RF: 0 Flovent Diskus 100 mcg/actuation blister with device 1 inh inhalation Q12H Qty: 2 RF: 0 prednisone 20 mg tablet 40 mg PO DAILY 4 Days Qty: 8 RF: 0
[2020-11-21 20:56] VITALS: BP 138/91; PULSE 94; RESP 18; O2SAT 95
[2020-11-21] MEDS: Azithromycin 500 MG TABLET PO (21:17)
[2020-11-21] MEDS: dexAMETHasone 6 MG TABLET PO (21:17)
[2020-11-21] MEDS: guaiFEN/Codeine SF 200/20/10ML 10 ML LIQUID PO (21:17)
== END 2020-11-21 21:20 | disposition home or self-care (01) ==
PROVIDERS: Emergency Provider Internal Medicine; PCP Nurse Practitioner Family
DX: U07.1 COVID-19 (principal); J12.82 Pneumonia due to coronavirus disease 2019; R50.9 Fever, unspecified; R05 Cough; Z79.899 Other long term (current) drug therapy; Z87.891 Personal history of nicotine dependence
CPT/HCPCS: 71045; 99283; J8540

== ENCOUNTER 2021-06-14 14:32 | Outpatient (REF) | payer OTHER, SELFPAY ==
[2021-06-14 17:00] LABS: Alanine Aminotransferase 27 U/L (0-40); Albumin Level 4.1 g/dL (3.5-5.0); Alkaline Phosphatase 93 U/L (39-117); Anion Gap 10 (12-20); Aspartate Amino Transferase 23 U/L (5-37); Bilirubin Total 0.7 mg/dL (0.0-1.0); Blood Urea Nitrogen 14 mg/dL (9-16); Calcium 8.7 mg/dL (8.4-10.2); Carbon Dioxide 28 mmol/L (22-29); Chloride 107 mmol/L (96-108); Cholesterol 169 mg/dL; Estimated Glomerular Filt Rate > 60; Glucose Fasting 91 mg/dL (60-99); HDL Cholesterol 41 mg/dL; LDL Cholesterol Calculated 113 mg/dl; Potassium 4.2 mmol/L (3.3-5.1); Sodium 141 mmol/L (135-145); Total Protein 6.4 g/dL (6.5-8.0); Triglycerides 76 mg/dL
[2021-06-14 17:20] LABS: TSH reflex Free T4 1.89 uIU/mL (0.32-4.0)
== END 2021-06-14 14:33 | disposition home or self-care (01) ==
LOC: HO.HMGCLDS 14:32
PROVIDERS: PCP Nurse Practitioner Family; Visit Provider Nurse Practitioner Family
DX: Z00.00 Encounter for general adult medical examination without abnormal findings (principal)
CPT/HCPCS: 36415; 80053; 80061; 84443

== ENCOUNTER 2021-06-15 12:08 | Outpatient (REF) | payer OTHER, SELFPAY ==
[2021-06-15 14:00] LABS: Appearance Urine CLEAR; Color Urine YELLOW; Glucose Urine UA NEG (NEG); Leukocyte Esterase Urine NEG (NEG); Nitrite Urine NEG (NEG); PH 5.5 (5.0-8.0); Specific Gravity - Urine 1.025 (1.005-1.025); Urine Blood NEG (NEG); Urine Ketones NEG (NEG); Urine Protein NEG (NEG-TRACE)
== END 2021-06-15 12:09 | disposition home or self-care (01) ==
LOC: HO.HMGCLNP 12:08
PROVIDERS: Visit Provider Nurse Practitioner Family
DX: Z00.00 Encounter for general adult medical examination without abnormal findings (principal)
CPT/HCPCS: 81003

== ENCOUNTER 2021-06-23 21:12 | Emergency (ER) | payer OTHER, SELFPAY ==
--- NOTE | ~2021-06-23 | XR_ITS ---
EXAMINATION: XR SHOULDER, LEFT CLINICAL INFORMATION: Pain and tingling. COMPARISON: Chest radiograph dated from 11/21/2020. TECHNIQUE: AP external rotation, Grashey, scapular Y, and axillary views of the left shoulder. FINDINGS: The bones and soft tissues are normal. No fracture. Glenohumeral and acromioclavicular alignment is anatomic with normal joint space. No abnormal soft tissue calcifications. XR/XR shoulder LT min 2V IMPRESSION: Normal left shoulder.
[2021-06-23 21:16] VITALS: BP 133/85; PULSE 89; RESP 18; TEMP 36.6; O2SAT 98; BMI 42.0
--- NOTE | 2021-06-23 23:33 | ED.GENADULT ---
HPI - General Adult General Chief complaint: Extremity Problem Stated complaint: Arm Pain Time Seen by Provider: 06/23/21 21:26 Source: patient Mode of arrival: ambulatory History of Present Illness HPI narrative: 36-year-old male with chronic cervical radicular symptoms and prior cervical spine fusion who presents after or pain management injection on Sunday where he states that the time when they injected ?winter was that they injected? that he had sharp burning pain and pulsatile manner and that at the time he has asked that they stop the procedure, but patient states that they did not stop. A since that time he has complaints of distal neuropathic tingling and numbness that has been persistent and states that there is no alleviating or exacerbating maneuvers, but that it has persisted. Patient states that he has contacted the office and that he was told that the symptoms may last up to 3-4 days, but he states that he was unable to sleep and is requesting further evaluation. I reviewed all available external notes from to include interventional pain management. Related Data Previous Rx's Medication Instructions Recorded colchicine 0.6 mg tablet 0.6 mg PO DAILY PRN 10 Days #30 tab 09/20/20 cholecalciferol (vitamin D3) 50 50 mcg PO DAILY 90 Days #90 cap 11/29/20 mcg (2,000 unit) capsule fluticasone propionate 110 1 puff PO BID #12 g 03/01/21 mcg/actuation HFA aerosol inhaler (Flovent HFA) omeprazole 40 mg capsule,delayed 40 mg PO DAILY #90 cap 03/22/21 release albuterol sulfate 90 mcg/actuation 2 puff PO Q2H PRN #8.5 g 03/28/21 aerosol inhaler atorvastatin 10 mg tablet 10 mg PO DAILY 90 Days #90 tab 05/04/21 cetirizine 10 mg tablet 10 mg PO DAILY #90 tab 05/11/21 allopurinol 100 mg tablet 100 mg PO DAILY #90 tab 06/02/21 diclofenac sodium 75 mg 75 mg PO BID PRN 30 Days #60 tab 06/16/21 tablet,delayed release Allergies Allergy/AdvReac Type Severity Reaction Status Date / Time doxycycline [DOXYCYCLINE] Allergy Intermediate HIVES Verified 06/13/21 12:46 morphine [MORPHINE] Allergy Intermediate CHEST PAIN Verified 06/13/21 12:46 Penicillins [PENICILLINS] Allergy Intermediate HIVES Verified 06/13/21 12:46 bees Allergy Unknown Swelling Verified 06/13/21 12:46 Doxycycline Hyclate Allergy Unknown Rash Verified 06/13/21 12:46 medical tape Allergy Unknown Rash Verified 06/13/21 12:46 naproxen Allergy Unknown Rash Verified 06/13/21 12:46 Sulfa (Sulfonamide Allergy Unknown Tongue Verified 06/13/21 12:46 Antibiotics) swelling, hives sulfamethoxazole Allergy Unknown HIVES Verified 06/13/21 12:46 [From BACTRIM] trimethoprim [From BACTRIM] Allergy Unknown HIVES Verified 06/13/21 12:46 Review of Systems Review of Systems: Pertinent positives and negatives as stated in HPI 10 point review of systems is otherwise negative. PMFSH Past Medical History Medical History CPAP (continuous positive airway pressure) dependence Left carpal tunnel syndrome Medial epicondylitis, left elbow LAM (obstructive sleep apnea) RLS (restless legs syndrome) Severe persistent allergic asthma Surgical History History of inguinal hernia repair History of shoulder surgery S/P debridement Family History Family History Father Diabetes mellitus Mother No problems noted. Maternal Grandmother CVD (cardiovascular disease) Cancer Brother No problems noted. Sister No problems noted. Son No problems noted. Daughter No problems noted. Social History Social History Housing: Homeless (living with parents ) Alcohol intake: former Patient Tobacco Use Status: Former Tobacco user Years Smoked: 15 years ago e-Cigarette/Vaping Use: Currently Using (sometimes ) Second Hand Smoke Exposure: Yes Use of substances other than those prescribed or required for medical reasons: No Advance Directives: No Advance Directives Information Provided: No service: No Current occupational status: unemployed and disabled Physical Exam Vital Signs: Vital Signs: Last Vital Signs Temp 98 F 06/23/21 21:16 Pulse 73 06/23/21 23:44 Resp 18 06/23/21 23:44 BP 154/86 H 06/23/21 23:44 Pulse Ox 97 06/23/21 23:44 Body Mass Index 42.0 VITAL SIGNS: Reviewed. GENERAL: Well developed, well nourished, in no acute distress. HEAD: Normocephalic/atraumatic EYES: PERRLA, EOMIous NOSE: Nares patent bilateral OROPHARYNX: no oral lesions noted, posterior pharynx clear NECK: Supple, no adenopathy, no midline cervical spine tenderness, there is a small area of ecchymosis noted at the left anterior base of the neck at the injection site LUNGS: Normal breath sounds. No adventitious sounds or accessory muscle use. SpO2<97> CARDIOVASCULAR: Regular rate and rhythm without noted murmurs ABDOMEN: Soft, non-tender, non-distended with bowel sounds. Left upper extremity: No deformities, capillary refill less than 3 seconds, no color changes, palpable radial and ulnar pulses, sensation is intact but patient reports ?feels weird? SKIN: Inspection of the skin reveals no rashes NEUROLOGIC: Alert and oriented x 4. Strength and sensation to light touch were grossly intact x 4. Course Course Course Narrative: 36-year-old male with left upper extremity neuropathy not entirely different from reports on review documentation within our system. Review of all investigations negative for acute findings and patient was provided with a dose of Valium and re-evaluated. Medical Decision Making Lab Data Labs: Lab Results 06/23/21 06/23/21 Range/Units 23:40 23:40 ESR 3 (0-15) MM/HR C-Reactive Protein 0.30 (< or = 0.50) mg/dL Discharge Plan Discharge Clinical Impression: Neuropathy of left upper extremity Patient Disposition: Home, Self-Care Instructions: Peripheral Neuropathy (ED) Additional Instructions: Please follow-up with the specialist who administered your injection in the morning for re-evaluation and further outpatient management. Return to the ER for acute worsening of symptoms. Prescriptions: No Action colchicine 0.6 mg tablet 0.6 mg PO DAILY PRN (Reason: gout flare) 10 Days Qty: 30 RF: 0 cholecalciferol (vitamin D3) 50 mcg (2,000 unit) capsule 50 mcg PO DAILY 90 Days Qty: 90 RF: 2 Flovent HFA 110 mcg/actuation HFA aerosol inhaler 1 puff PO BID Qty: 12 RF: 1 omeprazole 40 mg capsule,delayed release(DR/EC) 40 mg PO DAILY Qty: 90 RF: 1 albuterol sulfate 90 mcg/actuation HFA aerosol inhaler 2 puff PO Q2H PRN (Reason: for wheezing) Qty: 8.5 RF: 6 atorvastatin 10 mg tablet 10 mg PO DAILY 90 Days Qty: 90 RF: 0 cetirizine 10 mg tablet 10 mg PO DAILY Qty: 90 RF: 2 allopurinol 100 mg tablet 100 mg PO DAILY Qty: 90 RF: 0 diclofenac sodium 75 mg tablet,delayed release (DR/EC) 75 mg PO BID PRN (Reason: pain) 30 Days Qty: 60 RF: 0 Referrals: Leroy Harley, [facility] [Primary Care Provider] - 2 days
[2021-06-23 23:44] VITALS: BP 154/86; PULSE 73; RESP 18; O2SAT 97
[2021-06-24 00:51] LABS: Erythrocyte Sedimentation Rate 3 MM/HR (0-15)
[2021-06-24] MEDS: diazePAM 5 MG TABLET PO (00:56)
[2021-06-24] MEDS: oxyCODONE HCl Immed Release 5 MG TABLET PO (02:21)
== END 2021-06-24 02:25 | disposition home or self-care (01) ==
PROVIDERS: Emergency Provider Student in an Organized Health Care Education/Training Program; PCP Nurse Practitioner Family
DX: G62.9 Polyneuropathy, unspecified (principal)
CPT/HCPCS: 36415; 73030; 85652; 86140; 99283; 99284

== ENCOUNTER → 2021-08-11 14:51 | Outpatient (BNVA) | payer OTHER, SELFPAY | PROVIDERS: PCP Nurse Practitioner Family; Visit Provider Nurse Practitioner Family | DX: M47.816 Spondylosis without myelopathy or radiculopathy, lumbar region (principal); M54.2 Cervicalgia; M53.3 Sacrococcygeal disorders, not elsewhere classified; M25.50 Pain in unspecified joint; M10.9 Gout, unspecified; G89.4 Chronic pain syndrome; Z98.1 Arthrodesis status | CPT/HCPCS: Q3014 ==

== ENCOUNTER 2021-08-19 11:59 | Outpatient (REF) | payer OTHER, SELFPAY ==
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
== END 2021-08-19 12:00 | disposition home or self-care (01) ==
LOC: HO.SH 11:59
PROVIDERS: Visit Provider Nurse Practitioner Family
DX: H90.42 Sensorineural hearing loss, unilateral, left ear, with unrestricted hearing on the contralateral side (principal); H93.13 Tinnitus, bilateral
CPT/HCPCS: 92557; 92567

== ENCOUNTER → 2021-09-01 10:13 | Outpatient (BNVA) | payer OTHER, SELFPAY | PROVIDERS: PCP Nurse Practitioner Family; Visit Provider Nurse Practitioner Family | DX: M47.816 Spondylosis without myelopathy or radiculopathy, lumbar region (principal); M54.16 Radiculopathy, lumbar region | CPT/HCPCS: Q3014 ==

== ENCOUNTER → 2021-10-11 16:18 | Outpatient (BNVA) | payer OTHER, SELFPAY | PROVIDERS: PCP Nurse Practitioner Family; Visit Provider Nurse Practitioner Family | DX: M47.816 Spondylosis without myelopathy or radiculopathy, lumbar region (principal); M54.16 Radiculopathy, lumbar region; G89.4 Chronic pain syndrome; M54.2 Cervicalgia | CPT/HCPCS: 99212 ==

== ENCOUNTER 2021-12-13 05:59 | Outpatient (REF) | payer OTHER, SELFPAY ==
--- NOTE | ~2021-12-13 | FL_ITS ---
EXAMINATION: XR FLUOROSCOPY WITH INFORMATION: Radiculopathy lumbar region. COMPARISON: None. TECHNIQUE: Fluoroscopy performed by Eleonora Kirby. Fluoroscopy time: 0.6 minutes DAP: 13.4 Gycm2 Images: 1 FINDINGS: There is a single image revealing needle positioned inferior to left L4 pedicle with contrast opacifying the soft tissues. Visualized bones and disc levels are unremarkable. FL/FL guidance in treatment room IMPRESSION: Fluoroscopy was provided to referring physician for pain management.
== END 2021-12-13 06:00 | disposition home or self-care (01) ==
LOC: HO.RADIR 05:59
PROVIDERS: Visit Provider Anesthesiology
DX: M54.16 Radiculopathy, lumbar region (principal); M47.816 Spondylosis without myelopathy or radiculopathy, lumbar region; M54.2 Cervicalgia; Z87.891 Personal history of nicotine dependence
CPT/HCPCS: 64483; J1100; J3300; Q9967

== ENCOUNTER → 2022-01-05 08:34 | Outpatient (BNVA) | payer OTHER, SELFPAY | PROVIDERS: PCP Nurse Practitioner Family; Visit Provider Nurse Practitioner Family | DX: M54.16 Radiculopathy, lumbar region (principal); G89.4 Chronic pain syndrome; M53.3 Sacrococcygeal disorders, not elsewhere classified; Z98.1 Arthrodesis status; Z98.890 Other specified postprocedural states | CPT/HCPCS: Q3014 ==

== ENCOUNTER → 2022-02-22 14:13 | Outpatient (BNVA) | payer OTHER, SELFPAY | PROVIDERS: PCP Nurse Practitioner Family; Visit Provider Surgery | DX: R10.32 Left lower quadrant pain (principal); G89.29 Other chronic pain; G47.33 Obstructive sleep apnea (adult) (pediatric) | CPT/HCPCS: 99202 ==

== ENCOUNTER 2022-03-07 06:21 | Outpatient (REF) | payer OTHER, SELFPAY ==
--- NOTE | ~2022-03-07 | FL_ITS ---
EXAMINATION: XR FLUOROSCOPY WITH IMAGES CLINICAL INFORMATION: Sacrococcygeal disorder. COMPARISON: None. TECHNIQUE: Fluoroscopy performed by Eleonora Kirby NP Fluoroscopy time: 0.2 minutes Dose: 10.9 mGy Images: 2 FINDINGS: Initial image demonstrates needle placement over the left lateral sacrum near the sacroiliac joint. Second lateral image demonstrates needle placement and contrast injection posterior to the proximal sacrum. FL/FL guidance in treatment room IMPRESSION: Fluoroscopy guidance for pain management procedure.
== END 2022-03-07 06:22 | disposition home or self-care (01) ==
LOC: HO.RADIR 06:21
PROVIDERS: Visit Provider Anesthesiology
DX: M53.3 Sacrococcygeal disorders, not elsewhere classified (principal); M54.16 Radiculopathy, lumbar region; G89.4 Chronic pain syndrome; Z98.1 Arthrodesis status
CPT/HCPCS: 27096; J3300

== ENCOUNTER → 2022-04-14 09:31 | Outpatient (BNVA) | payer OTHER, SELFPAY | PROVIDERS: Visit Provider Nurse Practitioner Family | DX: M47.816 Spondylosis without myelopathy or radiculopathy, lumbar region (principal); G89.4 Chronic pain syndrome; M53.3 Sacrococcygeal disorders, not elsewhere classified; M54.2 Cervicalgia; Z98.1 Arthrodesis status | CPT/HCPCS: 99212 ==

== ENCOUNTER 2022-05-16 06:27 | Outpatient (REF) | payer OTHER, SELFPAY ==
--- NOTE | ~2022-05-16 | FL_ITS ---
EXAMINATION: XR FLUOROSCOPY WITH IMAGES CLINICAL INFORMATION: M47.816 - Spondylosis without myelopathy or radiculopathy, lumbar region COMPARISON: Fluoroscopic spot view 12/13/2021 TECHNIQUE: Fluoroscopy performed by Dr. Marky Zarco. Fluoroscopy time: 0.6 minutes. Cumulative Dose: 23.8 mGy. DAP: 6.49 Gy-cm2. Images: 6. FINDINGS: There are spinal needles overlying the bilateral outer L3, L4, and L5 neural foramen. There is contrast seen in the respective nerve sheaths. Some early transforaminal epidural extension is suggested. No visible vascular communication. FL/FL guidance in treatment room IMPRESSION: Fluoroscopy for pain management procedures.
== END 2022-05-16 06:28 | disposition home or self-care (01) ==
LOC: HO.RADIR 06:27
PROVIDERS: Visit Provider Anesthesiology
DX: M47.816 Spondylosis without myelopathy or radiculopathy, lumbar region (principal); M54.16 Radiculopathy, lumbar region; Z98.1 Arthrodesis status; G89.4 Chronic pain syndrome; M53.3 Sacrococcygeal disorders, not elsewhere classified
CPT/HCPCS: 64493; 64494

== ENCOUNTER → 2022-05-18 15:32 | Outpatient (BNVA) | payer OTHER, SELFPAY | PROVIDERS: PCP Nurse Practitioner Family; Visit Provider Nurse Practitioner Family | DX: M54.16 Radiculopathy, lumbar region (principal); M47.816 Spondylosis without myelopathy or radiculopathy, lumbar region; M53.3 Sacrococcygeal disorders, not elsewhere classified; G89.4 Chronic pain syndrome; Z98.1 Arthrodesis status | CPT/HCPCS: Q3014 ==

== ENCOUNTER 2022-08-09 10:40 | Outpatient (REF) | payer OTHER, SELFPAY ==
[2022-08-09 13:49] LABS: MANUAL DIFF FLAG NO
[2022-08-09 13:51] LABS: Appearance Urine Clear; Basophils Absolute Auto 0.1 X10*3/uL (0.0-0.2); Basophils Percent Auto 0.8 % (0-2); Color Urine Yellow; Eosinophils Absolute Auto 0.4 X10*3/uL (0.0-0.4); Glucose Urine UA Negative (Negative); Hematocrit 46.5 % (42.0-52.0); Hemoglobin 15.2 g/dl (14.0-18.0); Imm Gran Abs Auto 0.02 X10*3/uL (0.00-0.03); Imm Gran Pct Auto 0.3 % (0.0-0.4); Leukocyte Esterase Urine Negative (Negative); Lymphocytes Absolute Auto 1.4 X10*3/uL (1.2-4.9); Lymphocytes Percent Auto 22.6 % (20-40); Mean Corpuscular HGB Conc 32.7 g/dl (31.0-36.0); Mean Corpuscular Hemoglobin 30.2 pg (27.0-33.0); Mean Corpuscular Volume 92.4 fL (80.0-98.0); Mean Platelet Volume 10.4 fL (9.4-12.4); Monocytes Absolute Auto 0.7 X10*3/uL (0.1-1.2); Monocytes Percent Auto 11.3 % (2-11); Neutrophils Absolute Auto 3.5 x10*3/uL (2.0-8.3); Nitrite Urine Negative (Negative); PH 5.5 (5.0-9.0); Platelet Count 269 X10*3/uL (160-400); Red Blood Count 5.03 X10*6/uL (4.60-5.80); Red Cell Distribution Width 12.7 % (11.0-16.0); Urine Blood Negative (Negative); Urine Ketones Negative (Negative); Urine Protein Negative (Neg-Trace)
[2022-08-09 14:00] LABS: Alanine Aminotransferase 29 U/L (0-40); Albumin Level 4.2 g/dL (3.5-5.0); Alkaline Phosphatase 89 U/L (39-117); Anion Gap 14 (12-20); Aspartate Amino Transferase 31 U/L (5-37); Bilirubin Total 0.6 mg/dL (0.0-1.0); Blood Urea Nitrogen 16 mg/dL (9-16); Calcium 8.6 mg/dL (8.4-10.2); Carbon Dioxide 26 mmol/L (22-29); Chloride 102 mmol/L (96-108); Cholesterol 163 mg/dL; Estimated Glomerular Filt Rate > 60; Glucose Fasting 159 mg/dL (60-99); HDL Cholesterol 39 mg/dL; LDL Cholesterol Calculated 103 mg/dl; Potassium 4.4 mmol/L (3.3-5.1); Sodium 138 mmol/L (135-145); Total Protein 6.6 g/dL (6.5-8.0); Triglycerides 109 mg/dL
[2022-08-09 14:22] LABS: TSH reflex Free T4 2.63 uIU/mL (0.32-4.0)
== END 2022-08-09 10:41 | disposition home or self-care (01) ==
LOC: HO.HMGCLDS 10:40
PROVIDERS: PCP Nurse Practitioner Family; Visit Provider Nurse Practitioner Family
DX: Z00.00 Encounter for general adult medical examination without abnormal findings (principal)
CPT/HCPCS: 36415; 80053; 80061; 81003; 84443; 85025

== ENCOUNTER 2022-08-16 07:57 | Outpatient (REF) | payer OTHER, SELFPAY ==
[2022-08-16 11:45] LABS: Estimated Average Glucose 120 mg/dL; Hemoglobin A1c % 5.8 %
[2022-08-16 12:34] LABS: Alanine Aminotransferase 33 U/L (0-40); Albumin Level 4.2 g/dL (3.5-5.0); Alkaline Phosphatase 102 U/L (39-117); Anion Gap 11 (12-20); Aspartate Amino Transferase 33 U/L (5-37); Bilirubin Total 0.6 mg/dL (0.0-1.0); Blood Urea Nitrogen 14 mg/dL (9-16); Calcium 9.2 mg/dL (8.4-10.2); Carbon Dioxide 28 mmol/L (22-29); Chloride 106 mmol/L (96-108); Estimated Glomerular Filt Rate > 60; Glucose Fasting 114 mg/dL (60-99); Potassium 4.4 mmol/L (3.3-5.1); Sodium 141 mmol/L (135-145); Total Protein 6.5 g/dL (6.5-8.0)
== END 2022-08-16 07:58 | disposition home or self-care (01) ==
LOC: HO.HMGCLDS 07:57
PROVIDERS: PCP Nurse Practitioner Family; Visit Provider Nurse Practitioner Family
DX: E11.9 Type 2 diabetes mellitus without complications (principal)
CPT/HCPCS: 36415; 80053; 83036

== ENCOUNTER 2022-08-25 14:56 | Outpatient (REF) | payer OTHER, SELFPAY ==
[2022-08-25 15:55] LABS: Influenza A PCR NEGATIVE (Negative); Influenza B PCR NEGATIVE (Negative); Resp Syncy Virus RNA Qual PCR NEGATIVE (Negative); SARS COV2 PCR INHOUSE NEGATIVE (Negative)
== END 2022-08-25 14:57 | disposition home or self-care (01) ==
LOC: HO.LNP 14:56
PROVIDERS: Visit Provider Emergency Medicine
DX: R68.89 Other general symptoms and signs (principal); Z20.822 Contact with and (suspected) exposure to COVID-19
CPT/HCPCS: 0241U

== ENCOUNTER → 2022-10-03 08:37 | Outpatient (BNVA) | payer OTHER, SELFPAY | PROVIDERS: PCP Nurse Practitioner Family; Visit Provider Nurse Practitioner Family | DX: M54.12 Radiculopathy, cervical region (principal); M47.812 Spondylosis without myelopathy or radiculopathy, cervical region; G89.4 Chronic pain syndrome; Z98.1 Arthrodesis status | CPT/HCPCS: Q3014 ==

== ENCOUNTER 2022-10-04 13:00 | Outpatient (RCR) | payer OTHER, SELFPAY ==
--- NOTE | 2022-09-13 16:57 | MHC.PT.EP ---
[facility] [place] Office [place] Office [place] [facility] [address] [phone] F: [phone] F: [phone] F: [phone] F: [phone] Physical Therapy Plan of Care Date of Evaluation: Date of Surgery: Diagnosis: Arthralgia of TMJ joint Assessment: Pt is a 37 y/o male referred to PT for eval and treat of arthralgia of TMJ joint which results in decreased tolerance for eating, talking, yawning, as well as disturbed sleep secondary to decreased TMJ ROM and strength, decreased cervical posture, TMJ clicking upon opening, increased cervical accessory tissue tension, TTP of L cervical accessory mms and L TMJ, and pain. Pt is deemed an appropriate candidate to receive skilled PT services to address their physical impairments in order to improve their functional ability. Frequency and Duration: The patient will be seen 1 x / wk x 7 wks. Short Term Goals: Initiate HEP. Pt will be at most 1+ TTP of L proximal SCM muscle; initial: 2+ considerable. Snf Goals: I with HEP. Pt will report < 1/4 disturbed sleep d/t jaw pain; initial: 3/4 disturbed. Pt will report he is able to chew almost anything he'd like but sometime causes mild pain; initial: I cannot eat most of what i'd want d/t jaw pain. Pt will improve TMD disability questionnaire by at least 9 points. Pt will be able to depress his mandible at least 42cm; initial: 28cm. Treatment Plan: Modalities to reduce pain, spasms and effusion. Manual therapy to restore motion and function. Therapeutic exercise to improve strength and flexibility. Neuromuscular re-education for posture and balance. Therapeutic activities to return to functional activities of daily living. Electronically signed by: Lonnie Ríos PT. Please sign and return to therapist. Thank you for your referral.
--- NOTE | 2022-11-01 13:54 | MHC.PT.DC ---
[facility] [place] Office [place] Office [place] Office [address] [phone] F: [phone] F: [phone] F: [phone] F: [phone] Physical Therapy Discharge Report Diagnosis: Arthralgia of TMJ joint Date of Surgery: Date of Evaluation: 09/13/22 Date of Discharge: 11/01/22 Treatments to Date: 2 Cancellations to Date: 3 No Shows to Date: 1 Discharge Status: Independent with HEP Visit Non-compliance Discharge Summary: Jose was instructed in a home program of stability for his jaw issue and reported some improvement; he is recommended to continue; he is DC'd d/t poor attendance. From last Treatment Note: Pt returns after about 3 weeks and reports he has been doing his HEP and reports improved pain, ROM and comfort with eating and talking. Pt no longer demonstrates clicking upon normal opening though he demonstrates that he can make it happen with some lateral deviation and opening which is discouraged. He demonstrates early HEP proficiency; reviewed program. Electronically signed by: Lonnie Ríos PT Please sign and return to therapist. Thank you for your referral.
== END 2022-11-01 13:53 | disposition home or self-care (01) ==
LOC: HO.PTCHIC 13:00
PROVIDERS: PCP Nurse Practitioner Family; Visit Provider Nurse Practitioner Family
DX: M26.622 Arthralgia of left temporomandibular joint (principal)
CPT/HCPCS: 97110; 97161

== ENCOUNTER 2022-10-11 07:49 | Outpatient (REF) | payer OTHER, SELFPAY ==
--- NOTE | ~2022-10-11 | FL_ITS ---
EXAMINATION: XR FLUOROSCOPY WITH IMAGES CLINICAL INFORMATION: Spondylosis without myelopathy or radiculopathy COMPARISON: None. TECHNIQUE: Fluoroscopy Supervised By: Priscilla. Fluoroscopy Time: 0.3 minutes. Cumulative Dose: 3.02 mGy. DAP: 0.226 Gycm2. Images: 4. FINDINGS: There are 4 digital images obtained in the OR with 3 needles positioned to right lateral C6, C5 and C4 vertebra with contrast opacifying soft tissues for pain management. There is a C5-C6 disc prosthesis for fusion. FL/FL guidance in treatment room IMPRESSION: Fluoroscopy guidance was provided to the referrer for pain management.
== END 2022-10-11 07:50 | disposition home or self-care (01) ==
LOC: CF 07:49
PROVIDERS: Visit Provider Internal Medicine
DX: M47.812 Spondylosis without myelopathy or radiculopathy, cervical region (principal)
CPT/HCPCS: 64490; 64491; J2795; J3301; Q9965

== ENCOUNTER → 2022-11-10 08:22 | Outpatient (BNVA) | payer OTHER, SELFPAY | PROVIDERS: PCP Nurse Practitioner Family; Visit Provider Nurse Practitioner Family | DX: M62.838 Other muscle spasm (principal); M47.812 Spondylosis without myelopathy or radiculopathy, cervical region; M54.12 Radiculopathy, cervical region; M25.512 Pain in left shoulder; R51.9 Headache, unspecified; G89.29 Other chronic pain; Z98.1 Arthrodesis status | CPT/HCPCS: 99212 ==

== ENCOUNTER 2022-11-22 06:14 | Outpatient (REF) | payer OTHER, SELFPAY ==
--- NOTE | ~2022-11-22 | FL_ITS ---
EXAMINATION: XR FLUOROSCOPY WITH IMAGES CLINICAL INFORMATION: Left shoulder pain COMPARISON: None available. TECHNIQUE: Fluoroscopy Supervised By: Dr. Porfirio Diane. Fluoroscopy Time: 0.4 minutes. Cumulative Dose: 7.37 mGy. DAP: 1.04 Gycm2. Images: 1. FINDINGS: Single film demonstrates needle overlying the left shoulder. FL/FL guidance in treatment room IMPRESSION: Intraoperative fluoroscopy for pain management procedure.
== END 2022-11-22 06:15 | disposition home or self-care (01) ==
LOC: CF 06:14
PROVIDERS: Visit Provider Internal Medicine
DX: M25.512 Pain in left shoulder (principal)
CPT/HCPCS: 20610; J3301

== ENCOUNTER → 2022-12-08 11:33 | Outpatient (BNVA) | payer OTHER, SELFPAY | PROVIDERS: PCP Nurse Practitioner Family; Visit Provider Nurse Practitioner Family | DX: M62.838 Other muscle spasm (principal); M47.812 Spondylosis without myelopathy or radiculopathy, cervical region; M54.12 Radiculopathy, cervical region; M25.512 Pain in left shoulder; M54.16 Radiculopathy, lumbar region | CPT/HCPCS: Q3014 ==

== ENCOUNTER 2023-01-31 05:59 | Outpatient (REF) | payer OTHER, SELFPAY ==
--- NOTE | ~2023-01-31 | FL_ITS ---
EXAMINATION: XR FLUOROSCOPY WITH IMAGES CLINICAL INFORMATION: M54.16 - Radiculopathy, lumbar region COMPARISON: Fluoroscopic spot views 05/16/2022. TECHNIQUE: Fluoroscopy Supervised By: Dr. Porfirio Diane. Fluoroscopy Time: 0.3 minutes. Cumulative Dose: 14.4 mGy. DAP: 1.05 Gycm2. Images: 2. FINDINGS: There is a spinal needle overlying a left lumbar neural foramen, exact level difficult to discern on the collimated images. There is epidural contrast demonstrated. No visible vascular communication. FL/FL guidance in treatment room IMPRESSION: Fluoroscopy for pain management procedures.
== END 2023-01-31 06:00 | disposition home or self-care (01) ==
LOC: CF 05:59
PROVIDERS: Visit Provider Internal Medicine
DX: M54.16 Radiculopathy, lumbar region (principal); G89.4 Chronic pain syndrome
CPT/HCPCS: 64483; J1100; Q9965

== ENCOUNTER → 2023-02-23 14:20 | Outpatient (BNVA) | payer OTHER, SELFPAY | PROVIDERS: PCP Nurse Practitioner Family; Visit Provider Nurse Practitioner Family | DX: M62.838 Other muscle spasm (principal); M47.812 Spondylosis without myelopathy or radiculopathy, cervical region; M54.16 Radiculopathy, lumbar region; M53.3 Sacrococcygeal disorders, not elsewhere classified; M47.816 Spondylosis without myelopathy or radiculopathy, lumbar region; M96.1 Postlaminectomy syndrome, not elsewhere classified; G89.4 Chronic pain syndrome | CPT/HCPCS: 99212 ==

== ENCOUNTER 2023-03-28 06:06 | Outpatient (REF) | payer OTHER, SELFPAY ==
--- NOTE | ~2023-03-28 | FL_ITS ---
EXAMINATION: XR FLUOROSCOPY WITH IMAGES CLINICAL INFORMATION: Sacrococcygeal disorders, not elsewhere classified. Left SI joint injection. COMPARISON: None available. TECHNIQUE: Fluoroscopy Supervised By: Dr. Porfirio Diane. Fluoroscopy Time: 0.2 minutes. Cumulative Dose: 9.24 mGy. DAP: 0.735 Gycm2. Images: 2. FINDINGS: There are 2 digital images obtained of the sacrum with a needle positioned along the right SI joint for pain management. No gross bony abnormality. FL/FL guidance in treatment room IMPRESSION: Fluoroscopy was provided to referring physician for pain management.
== END 2023-03-28 06:07 | disposition home or self-care (01) ==
LOC: CF 06:06
PROVIDERS: Visit Provider Internal Medicine
DX: M53.3 Sacrococcygeal disorders, not elsewhere classified (principal)
CPT/HCPCS: 27096; J3301

== ENCOUNTER 2023-03-28 10:03 | Outpatient (AMB) | payer OTHER, SELFPAY ==
[2023-03-28 10:06] VITALS: BP 120/82; PULSE 81; RESP 14; O2SAT 96
--- NOTE | 2023-03-28 10:06 | A.OFFVIS_ITS ---
Intake Vital Signs 03/28/23 10:06 BP 120/82 Blood Pressure Location Lt radial Position Sitting Respiration 14 Pulse 81 Pulse Source Pulse Oximeter Pulse Oximetry (%) 96 Oxygen Delivery Method Room Air Intake Visit Reasons: Left theraputic SIJ inj Allergies doxycycline [DOXYCYCLINE] Allergy (Intermediate, Verified 03/28/23 10:06) Hives, Rash morphine [MORPHINE] Allergy (Intermediate, Verified 03/28/23 10:06) CHEST PAIN Penicillins [PENICILLINS] Allergy (Intermediate, Verified 03/28/23 10:06) HIVES gabapentin Allergy (Mild, Verified 03/28/23 10:06) Rash bee pollen Allergy (Unknown, Verified 03/28/23 10:06) Swelling medical tape Allergy (Unknown, Verified 03/28/23 10:06) Rash naproxen Allergy (Unknown, Verified 03/28/23 10:06) Rash Sulfa (Sulfonamide Antibiotics) Allergy (Unknown, Verified 03/28/23 10:06) Tongue swelling, hives sulfamethoxazole [From Bactrim] Allergy (Unknown, Verified 03/28/23 10:06) Hives trimethoprim [From Bactrim] Allergy (Unknown, Verified 03/28/23 10:06) Hives HPI Left theraputic SIJ inj HPI Details Patient presents for scheduled procedure. Denies any recent cough, cold, infection, fever or other significant changes in medical history since last office visit. [facility] Medical History Failed back syndrome Left carpal tunnel syndrome Medial epicondylitis, left elbow Neck pain with history of cervical spinal surgery RLS (restless legs syndrome) Severe persistent allergic asthma Surgical History History of inguinal hernia repair History of shoulder surgery S/P debridement Family History Father Diabetes mellitus Substance use disorder Mother No problems noted. Maternal Grandmother CVD (cardiovascular disease) Cancer Brother Labral tear of hip joint Mental health disorder Sister Mental health disorder Son No problems noted. Daughter No problems noted. 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 Immediately prior to starting the procedure, a time-out safety check was conducted. The patient's identification, procedure name, procedure site, and procedure laterality were confirmed with the patient. ? Patient was placed prone on the fluoroscopy table and the lumbosacral area was prepped using ChloraPrep and draped with sterile drapein standard fashion. The C-arm was rotated in a contralateral oblique fashion until the medial border of the iliac crest no longer foreshadowed the posterior sacroiliac joint line. The skin and subcutaneous tissue was anesthetized using 1 mL of 0.75% plain lidocaine with 1.5-inch 25-gauge needle in the middle region of the joint line.? A 3.5-inch 22-gauge spinal needle with small bend on the tip was slowly advanced towards the joint line, coaxial to the x-ray beam. Once bony content was obtained, the needle was easily slid into the intra-articular space.? Intra- articular needle position was confirmed using lateral fluoroscopy.? A total volume of 2.5mL of solution containing 40 mg Depomedrol and rest 0.5% of ropivacaine was injected intra-articularly. The stylet was reinserted and needle was removed. The patient tolerated the procedure well. Patient denied any lower extremity weakness or numbness. Patient was observed for 30 min and was discharged after fulfilling the standard discharge criteria. Coding 47137 - Sacroiliac Procedure code (CPT) selection complete Results Reviewed Results Reviewed: 03/28/23 11:30 Lidocaine HCl 2 % MPF [Xylocaine 2 % MPF] 5 ml .ROUTE .K-MED ONE Triamcinolone Acetonide [Kenalog-40] 40 mg .ROUTE .STK-MED ONE 03/28/23 11:43 Lidocaine HCl 2 % MPF [Xylocaine 2 % MPF] 5 ml .ROUTE .STK-MED ONE Assessment & Plan Assessment & Plan (1) Sacroiliac joint dysfunction of left side: Code(s): M53.3 - Sacrococcygeal disorders, not elsewhere classified Plan Patient is status post left SIJ injection. Patient tolerated procedure well and was discharged home in stable condition with discharge instructions. All questions were answered. We will follow-up via telephone or in clinic to assess response to therapy. A follow-up appointment was made during today's visit. Orders: Orders FL guidance in treatment room Today M53.3 - Sacrococcygeal disorders, not elsewhere classified Coding Level of Care Code Procedure Only Diagnoses Sacroiliac joint dysfunction of left side M53.3 CPT Codes Coding - Joint 9: 38998 - Sacroiliac ([id number])
== END 2023-03-28 11:48 | disposition home or self-care (01) ==
PROVIDERS: PCP Nurse Practitioner Family; Visit Provider Internal Medicine
DX: M53.3 Sacrococcygeal disorders, not elsewhere classified (principal)
CPT/HCPCS: 27096

== ENCOUNTER 2023-05-03 08:32 | Outpatient (AMB) | payer OTHER, SELFPAY ==
--- NOTE | 2023-05-03 08:33 | A.OFFVIS_ITS ---
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 Required: No Accompanied by: Self / Same As Patient Allergies doxycycline [DOXYCYCLINE] Allergy (Intermediate, Verified 05/03/23 08:39) Hives, Rash morphine [MORPHINE] Allergy (Intermediate, Verified 05/03/23 08:39) CHEST PAIN Penicillins [PENICILLINS] Allergy (Intermediate, Verified 05/03/23 08:39) HIVES gabapentin Allergy (Mild, Verified 05/03/23 08:39) Rash bee pollen Allergy (Unknown, Verified 05/03/23 08:39) Swelling medical tape Allergy (Unknown, Verified 05/03/23 08:39) Rash naproxen Allergy (Unknown, Verified 05/03/23 08:39) Rash Sulfa (Sulfonamide Antibiotics) Allergy (Unknown, Verified 05/03/23 08:39) Tongue swelling, hives sulfamethoxazole [From Bactrim] Allergy (Unknown, Verified 05/03/23 08:39) Hives trimethoprim [From Bactrim] Allergy (Unknown, Verified 05/03/23 08:39) Hives Medication List - Last Reconciled 05/03/23 by ESTELA Avelar albuterol sulfate 90 mcg/actuation 2 puffs PO Q2H PRN allopurinol 100 mg PO DAILY atorvastatin 10 mg PO DAILY 90 days cetirizine 10 mg PO DAILY cholecalciferol (vitamin D3) 50 mcg PO DAILY 90 days colchicine (gout) 0.6 mg PO DAILY PRN 10 days cyclobenzaprine 5 mg PO TID PRN diclofenac sodium 75 mg PO BID PRN 30 days ketoconazole 2% 1 appl topical DAILY 14 days omeprazole 40 mg PO DAILY pregabalin 150 mg PO BID 30 days riboflavin (vitamin B2) 400 mg PO DAILY 30 days HPI HPI Comments History of Present Illness Details Patient presents today to assess response to Left therapeutic SIJ injection on 03/28/[address] Diane. Patient reports 100% ongoing pain relief since procedure. Provocative SIJ testing does not elicit pain in the projection of SIJ area. However, patient now reports low thoracic pain radiating down to his low back for one month. Denies any inciting events, trauma, injury or falls. He cannot tolerate prolonged standing or bending due to increase in pain with muscle stiffness and spasms. There is no midline spine tenderness on exam. Patient also passed Behavioral Evaluation per [facility] but report will be released upon patient's copay is met. Patient reports he will contact [facility] today as he is interested to proceed with Nevro SCS trial. He reports informational brochures and previous discussions regarding SCS trial and implant have provided him sufficient information and he has no further concerns or questions. Patient reports pain interferes with his daily activities, functioning, ADLs, mood, sleep and decreases his quality of life. He is looking forward for SCS trial for his neck and back symptoms. Denies any fever, weight changes, bladder or bowel incontinence or saddle anesthesia. Past Procedures: 03/28/23: Left therapeutic SIJ injection-100% ongoing pain relief 01/31/23: Left L4-L5 TFESI loznosshr-05-523% ongoing pain relief 11/22/22: Left glenohumeral steroid injection- 100% pain relief for 1 week, ongoing 50% pain relief 10/11/22: Left Therapeutic C4-C5-C6 MBB -80% ongoing pain relief 05/16/22: Diagnostic Bilateral L3-L4 DR L5 MBBs-40% left and 60% right for 5 hours 12/13/21: Left L4-L5 TFESI-90% radiating LLE pain relief, 10% axial pain relief. 03/07/22: Left therapeutic SIJ injection-70% pain relief [facility] Medical History Failed back syndrome Left carpal tunnel syndrome Medial epicondylitis, left elbow Neck pain with history of cervical spinal surgery RLS (restless legs syndrome) Severe persistent allergic asthma Surgical History History of inguinal hernia repair History of shoulder surgery S/P debridement Family History Father Diabetes mellitus Substance use disorder Mother No problems noted. Maternal Grandmother CVD (cardiovascular disease) Cancer Brother Labral tear of hip joint Mental health disorder Sister Mental health disorder Son No problems noted. Daughter No problems noted. 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 Alert and oriented. Mood and affect appropriate. Follows and participates in conversation appropriately. Respiratory effort is unlabored. Able to transition from sit to stand unassisted. Ambulates with bilaterally normal heel strike and toe off. Able to stand and walk on toes and heels. Neck Neck: Yes normal visual inspection, Yes no lymphadenopathy, No anterior neck swelling, Yes no JVD and Yes prominent dorsocervical fat pad Back/Spine/Pelvis Back: back tenderness Cervical Spine: cervical muscular tenderness, pain with cervical ROM, Cervical spine scars present, cervical spasm and No Cervical spine tenderness Thoracic/Lumbar Spine: thoracic and lumbar spine normal to inspection, Lasegue's sign negative, straight leg raise negative bilaterally, pain with thoraco-lumbar ROM, paraspinal muscle tenderness, thoraco-lumbar ROM limited, No thoracic spinal tenderness and No lumbar spinal tenderness Pelvis: no buttock tenderness Sacroiliac joints: bilaterally nontender Assessment & Plan Assessment & Plan (1) Thoracolumbar back pain: Code(s): M54.50 - Low back pain, unspecified; M54.6 - Pain in thoracic spine (2) Lumbar spondylosis: Code(s): M47.816 - Spondylosis without myelopathy or radiculopathy, lumbar region (3) Chronic pain syndrome: Code(s): G89.4 - Chronic pain syndrome (4) Failed back syndrome: Code(s): M96.1 - Postlaminectomy syndrome, not elsewhere classified (5) Sacroiliac joint dysfunction of left side: Code(s): M53.3 - Sacrococcygeal disorders, not elsewhere classified (6) Cervical post-laminectomy syndrome: Code(s): M96.1 - Postlaminectomy syndrome, not elsewhere classified Plan 1. Patient is status post left therapeutic SIJ injection with Dr. Diane with ongoing 100% pain relief. 2. Thoracolumbar spine imaging to assess degree of degenerative changes, any subluxation, listhesis or pars defects. 3. Per [facility], patient has passed his Behavioral assessment for potential Nevro SCS tria but has outstanding balance prior report will be released. Contact information was provided to patient today. We will proceed with Nevro SCS trial with sedation and fluoroscopy once report is confirmed. The trialed and failed therapy has been reviewed with the patient. The risks, consequences, alternatives, and benefits of various treatment options were discussed with the patient in great detail, including conservative management, injections and procedures. All questions and concerns have been answered and patient agreed with the plan. Follow up after injection and sooner if needed. Orders: Orders XR thoracic spine 3V Today M54.50 - Low back pain, unspecified, M54.6 - Pain in thoracic spine XR lumbar spine 4V min Today G89.4 - Chronic pain syndrome, M47.816 - Spondylosis without myelopathy or radiculopathy, lumbar region, M54.50 - Low back pain, unspecified, M54.6 - Pain in thoracic spine, M96.1 - Postlaminectomy syndrome, not elsewhere classified Coding Level of Care Code Est Pt Level 4 (65796) Diagnoses Thoracolumbar back pain M54.50; M54.6 Lumbar spondylosis M47.816 Chronic pain syndrome G89.4 Failed back syndrome M96.1 Sacroiliac joint dysfunction of left side M53.3 Cervical post-laminectomy syndrome M96.1
[2023-05-03 08:37] VITALS: BP 176/111; PULSE 114; O2SAT 98; BMI 46.8
[2023-05-03 08:38] VITALS: BP 166/94; PULSE 95
== END 2023-05-03 08:49 | disposition home or self-care (01) ==
PROVIDERS: PCP Nurse Practitioner Family; Visit Provider Nurse Practitioner Family
DX: M54.50 Low back pain, unspecified (principal); M54.6 Pain in thoracic spine; M47.816 Spondylosis without myelopathy or radiculopathy, lumbar region; G89.4 Chronic pain syndrome; M96.1 Postlaminectomy syndrome, not elsewhere classified; M53.3 Sacrococcygeal disorders, not elsewhere classified
CPT/HCPCS: 99214

== ENCOUNTER 2023-05-03 08:32 | Outpatient (REF) | payer OTHER, SELFPAY ==
--- NOTE | ~2023-05-03 | XR_ITS ---
EXAMINATION: XR THORACIC SPINE CLINICAL INFORMATION: Back pain. COMPARISON: CT chest dated 01/12/2020. TECHNIQUE: AP, lateral and swimmer's views of the thoracic spine were obtained. FINDINGS: Bony mineralization is normal. There is a stable minimal T6 anterior wedge compression fracture. The vertebral body heights are otherwise unremarkable. The thoracic disc spaces are well-maintained. No acute fracture or spondylolisthesis is seen. There is minimal anterior spondylosis at T6-T7. The posterior elements are intact. The paravertebral soft tissues are unremarkable. There is well-maintained alignment status-post C4-C5 and C5-C6 anterior fusions and discectomies. XR/XR thoracic spine 3V IMPRESSION: 1. A chronic minimal T6 anterior wedge compression fracture is seen. 2. No acute fracture or spondylolisthesis is seen. 3. The thoracic disc spaces are well-maintained. EXAMINATION: XR LUMBOSACRAL SPINE CLINICAL INFORMATION: Lower back pain. COMPARISON: None TECHNIQUE: AP, bilateral and lateral views of the lumbar spine and lateral view of the lumbosacral junction. FINDINGS: The vertebral body heights and posterior elements are normal. There is a minimal lumbar levoscoliosis, which may be positional. No spondylolysis defect is seen on the oblique views. Disc spaces are preserved. The paraspinal soft tissues are normal. IMPRESSION: 1. There is a minimal lumbar levoscoliosis. 2. The lumbar disc spaces are well-maintained. 3. No acute fracture or spondylolisthesis is seen.
--- NOTE | ~2023-05-03 | XR_ITS ---
EXAMINATION: XR THORACIC SPINE CLINICAL INFORMATION: Back pain. COMPARISON: CT chest dated 01/12/2020. TECHNIQUE: AP, lateral and swimmer's views of the thoracic spine were obtained. FINDINGS: Bony mineralization is normal. There is a stable minimal T6 anterior wedge compression fracture. The vertebral body heights are otherwise unremarkable. The thoracic disc spaces are well-maintained. No acute fracture or spondylolisthesis is seen. There is minimal anterior spondylosis at T6-T7. The posterior elements are intact. The paravertebral soft tissues are unremarkable. There is well-maintained alignment status-post C4-C5 and C5-C6 anterior fusions and discectomies. XR/XR lumbar spine 4V min IMPRESSION: 1. A chronic minimal T6 anterior wedge compression fracture is seen. 2. No acute fracture or spondylolisthesis is seen. 3. The thoracic disc spaces are well-maintained. EXAMINATION: XR LUMBOSACRAL SPINE CLINICAL INFORMATION: Lower back pain. COMPARISON: None TECHNIQUE: AP, bilateral and lateral views of the lumbar spine and lateral view of the lumbosacral junction. FINDINGS: The vertebral body heights and posterior elements are normal. There is a minimal lumbar levoscoliosis, which may be positional. No spondylolysis defect is seen on the oblique views. Disc spaces are preserved. The paraspinal soft tissues are normal. IMPRESSION: 1. There is a minimal lumbar levoscoliosis. 2. The lumbar disc spaces are well-maintained. 3. No acute fracture or spondylolisthesis is seen.
== END 2023-05-03 08:33 | disposition home or self-care (01) ==
LOC: HO.XRAY 08:32
PROVIDERS: PCP Nurse Practitioner Family; Visit Provider Nurse Practitioner Family
DX: M54.6 Pain in thoracic spine (principal); M47.816 Spondylosis without myelopathy or radiculopathy, lumbar region; M96.1 Postlaminectomy syndrome, not elsewhere classified; M53.3 Sacrococcygeal disorders, not elsewhere classified; G89.4 Chronic pain syndrome; Z79.899 Other long term (current) drug therapy
CPT/HCPCS: 72072; 72110; 99212

== ENCOUNTER 2023-08-29 09:34 | Day surgery (SDC) | payer MEDICAID, SELFPAY ==
[2023-08-27 08:54] VITALS: BMI 43.6
--- NOTE | 2023-08-28 10:53 | HO.ANESPROP2 ---
Documented by User: Liliana Kern NP 08/28/23 10:56 HPI - Anesthesia Eval Consult details Narrative: 38yo M for Nevro Spinal Cord Stimulation Trial [facility] Active Problems Active Problems: All Active Problems (Updated 05/03/23 @ 08:48 by ESTELA Avelar) Failed back syndrome (Acute) Thoracolumbar back pain (Acute) Cervical post-laminectomy syndrome (Acute) Toe abrasion (Acute) Tinea pedis (Acute) Left shoulder pain (Acute) Chronic headache (Acute) Muscle spasm (Acute) Cervical spondylosis (Acute) Cervical radiculopathy (Acute) Obesity (Acute) Vitamin D deficiency (Acute) Newly diagnosed diabetes (Acute) TMJ arthralgia (Acute) Physical exam (Acute) Upper respiratory tract infection (Acute) Low back pain (Acute) LAM (obstructive sleep apnea) (Acute) BMI 40.0-44.9, adult (Acute) LAM (obstructive sleep apnea) (Acute) CPAP (continuous positive airway pressure) dependence (Acute) Chronic pain of left inguinal region (Acute) Dry skin (Acute) Constipation (Acute) Tinea pedis of left foot (Acute) Left lumbar radiculopathy (Acute) Hx of fusion of cervical spine (Acute) Sacroiliac joint dysfunction of left side (Acute) Joint ache (Acute) Gout (Acute) Cervicalgia (Acute) Lumbar spondylosis (Acute) Chronic pain syndrome (Acute) Loss of hearing (Acute) Physical exam (Acute) Pneumonia due to COVID-19 virus (Acute) Nausea & vomiting (Acute) Abdominal pain (Acute) Severe persistent allergic asthma (Acute) Past Medical History Medical History Neck pain with history of cervical spinal surgery Failed back syndrome RLS (restless legs syndrome) Left carpal tunnel syndrome Medial epicondylitis, left elbow Severe persistent allergic asthma Family History Family History Father Diabetes mellitus Substance use disorder Mother No problems noted. Maternal Grandmother CVD (cardiovascular disease) Cancer Brother Labral tear of hip joint Mental health disorder Sister Mental health disorder Son No problems noted. Daughter No problems noted. Surgical History Surgical History S/P debridement History of inguinal hernia repair History of shoulder surgery Social History Social History Housing: House Alcohol intake: current Alcohol intake frequency: does not drink Patient Tobacco Use Status: Former Tobacco user Years Smoked: 15 years ago e-Cigarette/Vaping Use: Former Use Second Hand Smoke Exposure: No Use of substances other than those prescribed or required for medical reasons: No Are you DNR?: No Advance Directives: No Advance Directives Information Provided: Yes Advance Directives on File: No service: No Current occupational status: employed and disabled 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 Current occupational exposures/hazards: No Cognitive needs: No Hearing needs: No Vision needs: No Meds Allergies Allergy/AdvReac Type Severity Reaction Status Date / Time doxycycline [DOXYCYCLINE] Allergy Intermediate Hives, Rash Verified 05/03/23 08:39 morphine [MORPHINE] Allergy Intermediate CHEST PAIN Verified 05/03/23 08:39 Penicillins [PENICILLINS] Allergy Intermediate HIVES Verified 05/03/23 08:39 gabapentin Allergy Mild Rash Verified 05/03/23 08:39 bee pollen Allergy Unknown Swelling Verified 05/03/23 08:39 medical tape Allergy Unknown Rash Verified 05/03/23 08:39 naproxen Allergy Unknown Rash Verified 05/03/23 08:39 Sulfa (Sulfonamide Allergy Unknown Tongue Verified 05/03/23 08:39 Antibiotics) swelling, hives sulfamethoxazole Allergy Unknown Hives Verified 05/03/23 08:39 [From Bactrim] trimethoprim [From Bactrim] Allergy Unknown Hives Verified 05/03/23 08:39 Exam Height,Weight and Vital Signs: Height 5 ft 10 in Weight 137.892 kg Assessment and Plan Assessment Anesthesia Assessment: Chart Reviewed Documented by User: Radha Teixeira MD 08/29/23 11:12 PMFSH Past Medical History Medical History Neck pain with history of cervical spinal surgery Failed back syndrome RLS (restless legs syndrome) Left carpal tunnel syndrome Medial epicondylitis, left elbow Severe persistent allergic asthma Family History Family History Father Diabetes mellitus Substance use disorder Mother No problems noted. Maternal Grandmother CVD (cardiovascular disease) Cancer Brother Labral tear of hip joint Mental health disorder Sister Mental health disorder Son No problems noted. Daughter No problems noted. Family history of problems with anesthesia: No Surgical History Surgical History S/P debridement History of inguinal hernia repair History of shoulder surgery History of Problems with Anesthesia: No Social History Social History Housing: House Alcohol intake: current Alcohol intake frequency: does not drink Patient Tobacco Use Status: Former Tobacco user Years Smoked: 15 years ago e-Cigarette/Vaping Use: Former Use Second Hand Smoke Exposure: No Use of substances other than those prescribed or required for medical reasons: No Are you DNR?: No Advance Directives: No Advance Directives Information Provided: Yes Advance Directives on File: No service: No Current occupational status: employed and disabled 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 Current occupational exposures/hazards: No Cognitive needs: No Hearing needs: No Vision needs: No Meds Allergies Allergy/AdvReac Type Severity Reaction Status Date / Time doxycycline [DOXYCYCLINE] Allergy Intermediate Hives, Rash Verified 05/03/23 08:39 morphine [MORPHINE] Allergy Intermediate CHEST PAIN Verified 05/03/23 08:39 Penicillins [PENICILLINS] Allergy Intermediate HIVES Verified 05/03/23 08:39 gabapentin Allergy Mild Rash Verified 05/03/23 08:39 bee pollen Allergy Unknown Swelling Verified 05/03/23 08:39 medical tape Allergy Unknown Rash Verified 05/03/23 08:39 naproxen Allergy Unknown Rash Verified 05/03/23 08:39 Sulfa (Sulfonamide Allergy Unknown Tongue Verified 05/03/23 08:39 Antibiotics) swelling, hives sulfamethoxazole Allergy Unknown Hives Verified 05/03/23 08:39 [From Bactrim] trimethoprim [From Bactrim] Allergy Unknown Hives Verified 05/03/23 08:39 Exam Airway Mallampati Class: III TM Dist: <=3cm Neck ROM: Limited Heart: rrr Lungs: cta Assessment and Plan Assessment Anesthesia Assessment: Anesthesia Plan Discussed Final Anesthetic Review Family History of Problems with Anesthesia: No History of Problems with Anesthesia: No NPO: Yes ASA Class: III Final Preanesthetic Review: Meds/Allgs Chart Reviewed, Consent Obtained/Reviewed and Anes Risks/Benef Reviewed Patient Risk: Intermediate Procedure Risk: Low Anesthetic Plan Anesthetic Plan: GA and MAC: Disposition: Standard PACU
--- NOTE | ~2023-08-29 | FL_ITS ---
EXAMINATION: XR FLUOROSCOPY WITH IMAGES CLINICAL INFORMATION: Nevro spinal cord stim trial. COMPARISON: None available. TECHNIQUE: Fluoroscopy Supervised By: Dr. Porfirio Diane. Fluoroscopy Time: 1.4 minutes. Cumulative Dose: 51.7 mGy. DAP: 4.97 Gycm2. Images: 5. FINDINGS: Images demonstrate leads projecting over the lower thoracic spinal canal FL/FL guidance in OR IMPRESSION: Fluoroscopy guidance for spinal cord stimulator trial
[2023-08-29 10:14] VITALS: BMI 43.2
[2023-08-29 10:15] VITALS: BP 138/85; PULSE 80; RESP 18; TEMP 36.6; O2SAT 98
[2023-08-29] MEDS: Lactated Ringers 1,000 ML 100 ML IVCONT (10:21)
--- NOTE | 2023-08-29 11:22 | MHC.SHP ---
Pre-Procedural Eval Section A Date of Service: 08/29/23 The patient is an INPATIENT: No Changes since office visit: Yes Patient answered all questions The History & Physical has been completed within 30 days and I have reviewed it.: No Section B Chief Complaint: Lumbar radiculopathy Relevant Family History (Specify if Yes): No Relevant Social History: None Present Medications: see Short Stay Collaborative assessment Medical History: No relevant PMH History of Previous Operations: No relevant previous surgery Allergies: Allergies Allergy/AdvReac Type Severity Reaction Status Date / Time doxycycline [DOXYCYCLINE] Allergy Intermediate Hives, Rash Verified 05/03/23 08:39 morphine [MORPHINE] Allergy Intermediate CHEST PAIN Verified 05/03/23 08:39 Penicillins [PENICILLINS] Allergy Intermediate HIVES Verified 05/03/23 08:39 gabapentin Allergy Mild Rash Verified 05/03/23 08:39 bee pollen Allergy Unknown Swelling Verified 05/03/23 08:39 medical tape Allergy Unknown Rash Verified 05/03/23 08:39 naproxen Allergy Unknown Rash Verified 05/03/23 08:39 Sulfa (Sulfonamide Allergy Unknown Tongue Verified 05/03/23 08:39 Antibiotics) swelling, hives sulfamethoxazole Allergy Unknown Hives Verified 05/03/23 08:39 [From Bactrim] trimethoprim [From Bactrim] Allergy Unknown Hives Verified 05/03/23 08:39 Review of Systems Sugical H&P ROS: Negative: Constitution, Cardiovascular and Respiratory Exam Surgical H&P Exam: Normal: HEENT, Normal: Heart and Normal: Lungs Plan Diagnosis/Plan: Unchanged I have reviewed the history and physical and performed a pertinent physical examination on my patient. No changes have occurred unless specified. Time Spent With Patient Time: Total time managing care of this patient today ____ minutes.
[2023-08-29 11:57] LABS: MRSA Nasal PCR NEGATIVE (Negative); SA Nasal PCR POSITIVE (Negative)
[2023-08-29 12:40] VITALS: BP 131/89; PULSE 87; RESP 16; TEMP 36.1; O2SAT 96
[2023-08-29 12:57] VITALS: BP 142/94; PULSE 81; RESP 18; TEMP 36.5; O2SAT 94
--- NOTE | 2023-08-29 15:25 | PM.OP ---
Brief Operative Note Date of Service: 08/29/23 Pre-op diagnosis: Lumbar radiculopathy Post-op diagnosis: same Procedure: Lumbar spinal cord stimulation trial Implants: Nevro SCS trial leads Surgeon: Porfirio Diane MD Anesthesia: MAC Was an Industrial Machine Operator used for this Procedure?: No Estimated blood loss (mL): 5 Pathology: none sent Condition: stable Disposition: PACU
--- NOTE | 2023-08-29 15:26 | P.OP_ITS ---
Operative Note Operative Note Date of Service: 08/29/23 Narrative: Percutaneous Spinal Cord Stimulator Trial, lumbar After obtaining written consent, pre-procedure blood pressure and heart rate were recorded and are in the nursing record for review. A peripheral IV was started. Antibiotics, cefazolin 2 gram, were given intraoperatively. The patient was placed in a prone position.? The patient was sedated by the anesthesiologist. The thoracolumbar area was widely prepped with ChloraPrep, allowed to dry and draped in sterile fashion. Fluoroscopy was used to identify the target interlaminar spaces and appropriate needle insertion sites. The skin and subcutaneous tissue was anesthetized with 0.5% lidocaine. Two separate 14 gauge Tuohy epidural needles were then advanced from this point in a paramedian approach to the epidural space opening at T12/L1 interspace, where loss of resistance was found using air. No paresthesias were elicited with needle placement. No CSF or heme was present upon needle placement. A guide wire was then used to confirm placement into the epidural space at each level under live fluoroscopy. The 1x8 stimulator lead wire was then threaded to the top of T9 in the right parasagittal position and top of of T8 in the left parasagittal posit ion under live fluoroscopy. The leads advanced midline and dorsal.? The Tuohy needles were then completely removed under live fluoroscopy. The stimulator wires were then secured with 2-0 silk sutures securing the anchors, sterile strips and gauze and tegaderm for skin dressing. The patient tolerated the procedure well and no complications were encountered. Following the procedure the patient's vital signs were stable. The patient was discharged home in good condition after being given discharge instructions. Time Out: Immediately prior to the procedure, the following was verbally confirmed that there is a signed consent form and that the correct patient, planned procedure, site and side are consistent with documentation and that necessary equipment and/or blood products are available prior to the start of the case. Complications: none EBL: <2 cc
== END 2023-08-29 13:35 | disposition home or self-care (01) ==
PROVIDERS: Registered Nurse Emergency; PCP Nurse Practitioner Family; Visit Provider Internal Medicine
PROC: (CPT 63650; principal; 2023-08-29 11:20)
DX: M96.1 Postlaminectomy syndrome, not elsewhere classified (principal); G89.4 Chronic pain syndrome; M54.50 Low back pain, unspecified; M54.6 Pain in thoracic spine; M47.816 Spondylosis without myelopathy or radiculopathy, lumbar region; M62.830 Muscle spasm of back; M53.3 Sacrococcygeal disorders, not elsewhere classified; G25.81 Restless legs syndrome; J45.50 Severe persistent asthma, uncomplicated; Z79.899 Other long term (current) drug therapy; L23.1 Allergic contact dermatitis due to adhesives; Z88.0 Allergy status to penicillin; Z88.1 Allergy status to other antibiotic agents; Z88.5 Allergy status to narcotic agent; Z88.2 Allergy status to sulfonamides; Z98.890 Other specified postprocedural states; Z87.891 Personal history of nicotine dependence
CPT/HCPCS: 63650 ×2; 87640; 87641; C1897; J0665; J0736; J2250; J2704; J3010

== ENCOUNTER → 2023-08-29 09:34 | Outpatient (BNV) | payer MEDICAID, SELFPAY | PROVIDERS: PCP Nurse Practitioner Family; Visit Provider Internal Medicine | DX: M96.1 Postlaminectomy syndrome, not elsewhere classified (principal); G89.4 Chronic pain syndrome | CPT/HCPCS: 63650 ==

== ENCOUNTER 2023-09-04 08:02 | Outpatient (AMB) | payer MEDICAID, SELFPAY ==
[2023-09-04 09:03] VITALS: BP 136/86; PULSE 80; O2SAT 96; BMI 43.2
--- NOTE | 2023-09-04 09:03 | A.OFFVIS_ITS ---
Intake Vital Signs 09/04/23 09:03 Height 5 ft 10 in Weight 301 lb BMI 43.2 BP 136/86 Blood Pressure Location Lt brachial Position Sitting Pulse 80 Pulse Source Pulse Oximeter Pulse Oximetry (%) 96 Oxygen Delivery Method Room Air Intake Visit Reasons: s/p Nevro Lumbar SCS Trial 08/29/23/confirmed Allergies doxycycline [DOXYCYCLINE] Allergy (Intermediate, Verified 09/04/23 09:02) Hives, Rash morphine [MORPHINE] Allergy (Intermediate, Verified 09/04/23 09:02) CHEST PAIN Penicillins [PENICILLINS] Allergy (Intermediate, Verified 09/04/23 09:02) HIVES gabapentin Allergy (Mild, Verified 09/04/23 09:02) Rash bee pollen Allergy (Unknown, Verified 09/04/23 09:02) Swelling medical tape Allergy (Unknown, Verified 09/04/23 09:02) Rash naproxen Allergy (Unknown, Verified 09/04/23 09:02) Rash Sulfa (Sulfonamide Antibiotics) Allergy (Unknown, Verified 09/04/23 09:02) Tongue swelling, hives sulfamethoxazole [From Bactrim] Allergy (Unknown, Verified 09/04/23 09:02) Hives trimethoprim [From Bactrim] Allergy (Unknown, Verified 09/04/23 09:02) Hives HPI HPI Comments History of Present Illness Details Jose presents to the office today for follow up 1 week s/p SCS trial with Nevro. Patient reports 70% overall pain relief with improvement in function and mobility. He reports the pain to his leg was significantly improved and pain in the back was moderately improved. He states that the leg pain was the primary intended target for treatment. Patient denies untoward effects and would like to proceed with implant. Past Procedures: 08/29/23: Nevro SCS trial-70% pain relie f overall 03/28/23: Left therapeutic SIJ injection -100% ongoing pain relief 01/31/23: Left L4-L5 TFESI injection-90- 100% ongoing pain relief 11/22/22: Left glenohumeral steroid inje ction- 100% pain relief for 1 week, ongoing 50% pain relief 10/11/22: Left Therapeutic C4-C5-C6 MBB -80% ongoing pain relief 05/16/22: Diagnostic Bilateral L3-L4 DR L5 MBBs-40% left and 60% right for 5 hours 12/13/21: Left L4-L5 TFESI-90% radiating LLE pain relief, 10% axial pain relief. 03/07/22: Left therapeutic SIJ injection -70% pain relief PFS Medical History Neck pain with history of cervical spinal surgery Failed back syndrome RLS (restless legs syndrome) Left carpal tunnel syndrome Medial epicondylitis, left elbow Severe persistent allergic asthma Surgical History S/P debridement History of inguinal hernia repair History of shoulder surgery Family History Father Diabetes mellitus Substance use disorder Mother No problems noted. Maternal Grandmother CVD (cardiovascular disease) Cancer Brother Labral tear of hip joint Mental health disorder Sister Mental health disorder Son No problems noted. Daughter No problems noted. 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 Answers questions appropriately. Fully engaged in examination. Skin: warm, dry, intact HEENT: Normocephalic. Hearing intact. Cardiac: External chest normal in appearance. Respiratory: No cough, audible wheezing or stridor. Abdomen: without gross distension. MS: No obvious swelling or deformities. Able to transition from sit to stand unassisted. Ambulates with bilaterally normal heel strike and toe off Neurological: Oriented to person, place, time and situation. Thought process intact. Psychiatric: Appropriate mood and affect. Good judgment and insight. Nevro SCS Trial lead removal: Dressing was taken down, area was cleansed with chloraprep, insertion site was visualized and without redness/irritation/drain age. Sutures removed and both leads withdrawn without resistance; leads examined and noted to be without concern, tips intact. Area cleansed again, bacitracin dressing was applied, area covered with tegaderm. Results Reviewed Results Reviewed: EXAMINATION: 05/25/2020 MR CERVICAL SPINE WITHOUT AND WITH CONTRAST CLINICAL INFORMATION: Status post C-spine fusion. Neck pain. Paralysis of upper extremities. COMPARISON: Cervical spine MRI 09/18/2019. TECHNIQUE: MRI of the cervical spine was performed using routine sequences without and with contrast. A total of 20 mL Dotarem was intravenously administered. FINDINGS: There are postoperative findings related to anterior cervical discectomy and fusion across the C5-C6 level. There is mild disc height loss at C4-C5 no bone marrow edema is seen. The cervical cord signal appears normal. There is no abnormal intrathecal enhancement. The imaged portions of the intracranial contents appear normal. A small focus of T2 hyperintensity is seen along the right lateral tracheal wall presumably reflecting retained secretions and appeared to have cleared on the postcontrast images. SPINAL LEVELS: C2-C3: No posterior disc abnormality. No spinal canal or neural foraminal stenosis. C3-C4: Minimal disc bulging. No spinal canal stenosis. No neural foraminal stenosis. No interval change. C4-C5: Small central extrusion with mild migration along the posterior aspect of C4 vertebral body mildly increased compared with prior with resultant mild ventral deformation of the cord. Unchanged minimal narrowing of the neural foramina related to uncovertebral hypertrophy. C5-C6: Postoperative findings of ACDF. Disc bulging asymmetric to the left resulting in mild flattening of the left ventral cord, unchanged from prior. Mild left neural foraminal stenosis related to uncovertebral hypertrophy. No interval change. C6-C7: Mild disc bulging and mild uncovertebral hypertrophy. Mild narrowing of the neural foramina without interval change. No spinal canal stenosis. C7-T1: No posterior disc abnormality. No spinal canal or neural foraminal stenosis. IMPRESSION: Expected postoperative findings of ACDF at C5-C6. At C4-C5 there is small central extrusion with superior migration which has mildly increased in size but results in unchanged mild deformation of the ventral cord. No new disc herniation is seen. No evidence of high-grade neural foraminal stenosis. Assessment & Plan Assessment & Plan (1) Thoracolumbar back pain: Code(s): M54.50 - Low back pain, unspecified; M54.6 - Pain in thoracic spine (2) Lumbar spondylosis: Code(s): M47.816 - Spondylosis without myelopathy or radiculopathy, lumbar region (3) Chronic pain syndrome: Code(s): G89.4 - Chronic pain syndrome (4) Failed back syndrome: Code(s): M96.1 - Postlaminectomy syndrome, not elsewhere classified (5) Sacroiliac joint dysfunction of left side: Code(s): M53.3 - Sacrococcygeal disorders, not elsewhere classified (6) Cervical post-laminectomy syndrome: Code(s): M96.1 - Postlaminectomy syndrome, not elsewhere classified Plan Jose presented to the office today for follow up 1 week s/p SCS trial with Nevro. Leads removed as per above. Patient reported 70% pain relief overall with no untoward effects. He would like to proceed with implant. Will schedule for Fluoroscopy guided Nevro SCS implant with anesthesia for post laminectomy syndrome given 70% pain relief during SCS trial. All questions and concerns have been answered and patient agreed with the plan. Follow up after implant, sooner if needed. Coding Level of Care Code Est Pt Level 4 (76506) Diagnoses Thoracolumbar back pain M54.50; M54.6 Lumbar spondylosis M47.816 Chronic pain syndrome G89.4 Failed back syndrome M96.1 Sacroiliac joint dysfunction of left side M53.3 Cervical post-laminectomy syndrome M96.1
== END 2023-09-04 09:20 | disposition home or self-care (01) ==
PROVIDERS: PCP Nurse Practitioner Family; Visit Provider Registered Nurse Emergency
DX: M54.50 Low back pain, unspecified (principal); M54.6 Pain in thoracic spine; M47.816 Spondylosis without myelopathy or radiculopathy, lumbar region; G89.4 Chronic pain syndrome; M96.1 Postlaminectomy syndrome, not elsewhere classified; M53.3 Sacrococcygeal disorders, not elsewhere classified
CPT/HCPCS: 99214

== ENCOUNTER → 2023-09-04 08:02 | Outpatient (BNVA) | payer MEDICAID, SELFPAY | PROVIDERS: PCP Nurse Practitioner Family; Visit Provider Registered Nurse Emergency | DX: M54.50 Low back pain, unspecified (principal); M54.6 Pain in thoracic spine; M47.816 Spondylosis without myelopathy or radiculopathy, lumbar region; M96.1 Postlaminectomy syndrome, not elsewhere classified; M53.3 Sacrococcygeal disorders, not elsewhere classified; G89.4 Chronic pain syndrome | CPT/HCPCS: 99212 ==

== ENCOUNTER 2023-11-14 09:20 | Day surgery (SDC) | payer MEDICARE, MEDICAID, SELFPAY ==
[2023-11-12 08:39] VITALS: BMI 43.2
--- NOTE | 2023-11-12 11:58 | HO.ANESPROP2 ---
HPI - Anesthesia Eval Consult details Narrative: 38yo M for Spinal Cord Stimulation Implant s/p trial 08/2023 with [facility] Active Problems Active Problems: All Active Problems (Updated 05/03/23 @ 08:48 by ESTELA Avelar) Failed back syndrome (Acute) Thoracolumbar back pain (Acute) Cervical post-laminectomy syndrome (Acute) Toe abrasion (Acute) Tinea pedis (Acute) Left shoulder pain (Acute) Chronic headache (Acute) Muscle spasm (Acute) Cervical spondylosis (Acute) Cervical radiculopathy (Acute) Obesity (Acute) Vitamin D deficiency (Acute) Newly diagnosed diabetes (Acute) TMJ arthralgia (Acute) Physical exam (Acute) Upper respiratory tract infection (Acute) Low back pain (Acute) LAM (obstructive sleep apnea) (Acute) BMI 40.0-44.9, adult (Acute) LAM (obstructive sleep apnea) (Acute) CPAP (continuous positive airway pressure) dependence (Acute) Chronic pain of left inguinal region (Acute) Dry skin (Acute) Constipation (Acute) Tinea pedis of left foot (Acute) Left lumbar radiculopathy (Acute) Hx of fusion of cervical spine (Acute) Sacroiliac joint dysfunction of left side (Acute) Joint ache (Acute) Gout (Acute) Cervicalgia (Acute) Lumbar spondylosis (Acute) Chronic pain syndrome (Acute) Loss of hearing (Acute) Physical exam (Acute) Pneumonia due to COVID-19 virus (Acute) Nausea & vomiting (Acute) Abdominal pain (Acute) Severe persistent allergic asthma (Acute) Past Medical History Medical History Neck pain with history of cervical spinal surgery Failed back syndrome RLS (restless legs syndrome) Left carpal tunnel syndrome Medial epicondylitis, left elbow Severe persistent allergic asthma Family History Family History Father Diabetes mellitus Substance use disorder Mother No problems noted. Maternal Grandmother CVD (cardiovascular disease) Cancer Brother Labral tear of hip joint Mental health disorder Sister Mental health disorder Son No problems noted. Daughter No problems noted. Family history of problems with anesthesia: No Surgical History Surgical History S/P debridement History of inguinal hernia repair History of shoulder surgery History of Problems with Anesthesia: No Social History Social History Housing: House Alcohol intake: current Alcohol intake frequency: does not drink Patient Tobacco Use Status: Former Tobacco user Years Smoked: 15 years ago e-Cigarette/Vaping Use: Former Use Second Hand Smoke Exposure: No Are you DNR?: No Advance Directives: No Advance Directives Information Provided: Yes Nutrition Risks: No Nutritional Risk service: No Current occupational status: employed and disabled 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 Current occupational exposures/hazards: No Cognitive needs: No Hearing needs: No Vision needs: No Meds Allergies Allergy/AdvReac Type Severity Reaction Status Date / Time doxycycline [DOXYCYCLINE] Allergy Intermediate Hives, Rash Verified 11/14/23 10:40 morphine [MORPHINE] Allergy Intermediate CHEST PAIN Verified 11/14/23 10:40 Penicillins [PENICILLINS] Allergy Intermediate HIVES Verified 11/14/23 10:40 gabapentin Allergy Mild Rash Verified 11/14/23 10:40 bee pollen Allergy Unknown Swelling Verified 11/14/23 10:40 medical tape Allergy Unknown Rash Verified 11/14/23 10:40 naproxen Allergy Unknown Rash Verified 11/14/23 10:40 Sulfa (Sulfonamide Allergy Unknown Tongue Verified 11/14/23 10:40 Antibiotics) swelling, hives sulfamethoxazole Allergy Unknown Hives Verified 11/14/23 10:40 [From Bactrim] trimethoprim [From Bactrim] Allergy Unknown Hives Verified 11/14/23 10:40 Exam Height,Weight and Vital Signs: Height 5 ft 10 in Weight 136.531 kg Assessment and Plan Assessment Anesthesia Assessment: Chart Reviewed Final Anesthetic Review Family History of Problems with Anesthesia: No History of Problems with Anesthesia: No
--- NOTE | ~2023-11-14 | FL_ITS ---
INDICATION: Intraoperative fluoroscopy. FLUOROSCOPY: Fluoroscopy Time: 2 minutes 24 seconds Dose/air kerma: 60.803 mGy Images saved: 4 FINDINGS: Multiple intraoperative fluoroscopic images are submitted during spinal cord stimulator implant. Correlation with operative report. Evaluation is limited secondary to fluoroscopic technique. IMPRESSION: Intra-operative fluoroscopic imaging provided by radiology during spinal cord stimulator implant. Please refer to operative note for further information.
[2023-11-14 10:29] VITALS: BMI 39.9
[2023-11-14] MEDS: Lactated Ringers 1,000 ML 100 ML IVCONT (10:37)
[2023-11-14 10:47] VITALS: BP 157/97; PULSE 87; RESP 18; TEMP 36.4; O2SAT 97
--- NOTE | 2023-11-14 13:14 | P.HPSUR_ITS ---
Pre-Procedural Eval Section A - 24 Hr Update-Section A only Date of Service: 11/14/23 The patient is an INPATIENT: No Changes since office visit: Yes Patient answered all questions The patient has been examined within 24 hours of the surgical procedure. The History & Physical has been completed within 30 days and I have reviewed it.: No Section B - Complete if H&P > 30 days Chief Complaint: Postlaminectomy syndrome, not elsewhere classified Relevant Family History (Specify if Yes): No Relevant Social History: None Present Medications: see Short Stay Collaborative assessment Medical History: No relevant PMH History of Previous Operations: Relevant previous surgery/procedure and date(s) Allergies: Allergies Allergy/AdvReac Type Severity Reaction Status Date / Time doxycycline [DOXYCYCLINE] Allergy Intermediate Hives, Rash Verified 11/14/23 10: 40 morphine [MORPHINE] Allergy Intermediate CHEST PAIN Verified 11/14/23 10:40 Penicillins [PENICILLINS] Allergy Intermediate HIVES Verified 11/14/23 10:40 gabapentin Allergy Mild Rash Verified 11/14/23 10:40 bee pollen Allergy Unknown Swelling Verified 11/14/23 10:40 medical tape Allergy Unknown Rash Verified 11/14/23 10:40 naproxen Allergy Unknown Rash Verified 11/14/23 10:40 Sulfa (Sulfonamide Allergy Unknown Tongue Verified 11/14/23 10:40 Antibiotics) swelling, hives sulfamethoxazole Allergy Unknown Hives Verified 11/14/23 10:40 [From Bactrim] trimethoprim [From Bactrim] Allergy Unknown Hives Verified 11/14/23 10:40 Review of Systems Sugical H&P ROS: Negative: Constitution, Cardiovascular and Respiratory Exam Surgical H&P Exam: Normal: HEENT, Normal: Heart and Normal: Lungs Plan Diagnosis/Plan: Unchanged I have reviewed the history and physical and performed a pertinent physical examination on my patient. No changes have occurred unless specified. Time Spent With Patient Time: Total time managing care of this patient today ____ minutes.
[2023-11-14 13:21] LABS: MRSA Nasal PCR NEGATIVE (Negative); SA Nasal PCR POSITIVE (Negative)
--- NOTE | 2023-11-14 13:49 | HO.ANESPROP2 ---
[facility] Active Problems Active Problems: All Active Problems (Updated 05/03/23 @ 08:48 by ESTELA Avelar) Failed back syndrome (Acute) Thoracolumbar back pain (Acute) Cervical post-laminectomy syndrome (Acute) Toe abrasion (Acute) Tinea pedis (Acute) Left shoulder pain (Acute) Chronic headache (Acute) Muscle spasm (Acute) Cervical spondylosis (Acute) Cervical radiculopathy (Acute) Obesity (Acute) Vitamin D deficiency (Acute) Newly diagnosed diabetes (Acute) TMJ arthralgia (Acute) Physical exam (Acute) Upper respiratory tract infection (Acute) Low back pain (Acute) LAM (obstructive sleep apnea) (Acute) BMI 40.0-44.9, adult (Acute) LAM (obstructive sleep apnea) (Acute) CPAP (continuous positive airway pressure) dependence (Acute) Chronic pain of left inguinal region (Acute) Dry skin (Acute) Constipation (Acute) Tinea pedis of left foot (Acute) Left lumbar radiculopathy (Acute) Hx of fusion of cervical spine (Acute) Sacroiliac joint dysfunction of left side (Acute) Joint ache (Acute) Gout (Acute) Cervicalgia (Acute) Lumbar spondylosis (Acute) Chronic pain syndrome (Acute) Loss of hearing (Acute) Physical exam (Acute) Pneumonia due to COVID-19 virus (Acute) Nausea & vomiting (Acute) Abdominal pain (Acute) Severe persistent allergic asthma (Acute) Past Medical History Medical History Neck pain with history of cervical spinal surgery Failed back syndrome RLS (restless legs syndrome) Left carpal tunnel syndrome Medial epicondylitis, left elbow Severe persistent allergic asthma Family History Family History Father Diabetes mellitus Substance use disorder Mother No problems noted. Maternal Grandmother CVD (cardiovascular disease) Cancer Brother Labral tear of hip joint Mental health disorder Sister Mental health disorder Son No problems noted. Daughter No problems noted. Family history of problems with anesthesia: No Surgical History Surgical History S/P debridement History of inguinal hernia repair History of shoulder surgery History of Problems with Anesthesia: No Social History Social History Housing: House Alcohol intake: current Alcohol intake frequency: does not drink Patient Tobacco Use Status: Former Tobacco user Years Smoked: 15 years ago e-Cigarette/Vaping Use: Former Use Second Hand Smoke Exposure: No Are you DNR?: No Advance Directives: No Advance Directives Information Provided: Yes Nutrition Risks: No Nutritional Risk service: No Current occupational status: employed and disabled 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 Current occupational exposures/hazards: No Cognitive needs: No Hearing needs: No Vision needs: No Meds Allergies Allergy/AdvReac Type Severity Reaction Status Date / Time doxycycline [DOXYCYCLINE] Allergy Intermediate Hives, Rash Verified 11/14/23 10:40 morphine [MORPHINE] Allergy Intermediate CHEST PAIN Verified 11/14/23 10:40 Penicillins [PENICILLINS] Allergy Intermediate HIVES Verified 11/14/23 10:40 gabapentin Allergy Mild Rash Verified 11/14/23 10:40 bee pollen Allergy Unknown Swelling Verified 11/14/23 10:40 medical tape Allergy Unknown Rash Verified 11/14/23 10:40 naproxen Allergy Unknown Rash Verified 11/14/23 10:40 Sulfa (Sulfonamide Allergy Unknown Tongue Verified 11/14/23 10:40 Antibiotics) swelling, hives sulfamethoxazole Allergy Unknown Hives Verified 11/14/23 10:40 [From Bactrim] trimethoprim [From Bactrim] Allergy Unknown Hives Verified 11/14/23 10:40 Active Medications: Current Medications Albuterol Sulfate (Albuterol Sulfate (0.083%) 2.5 Mg/3 Ml Vial.Neb) 2.5 mg INHALE ONCE PRN PRN Reason: Shortness of Breath/Wheezing Lactated Ringer's (Lr) 1,000 mls @ 100 mls/hr IVCONT .Q10H SHANEL Last Admin: 11/14/23 10:37 Dose: 100 mls/hr Exam Height,Weight and Vital Signs: Height 5 ft 10 in Weight 126.099 kg Last Vital Signs Temp 97.6 F 11/14/23 10:47 Pulse 87 11/14/23 10:47 Resp 18 11/14/23 10:47 BP 157/97 H 11/14/23 10:47 Pulse Ox 97 11/14/23 10:47 O2 Del Method Room Air 11/14/23 10:47 Pertinent Lab Results Pertinent Lab Results: Laboratory Tests 03/06/24 11:05 Nasal Screen MRSA (PCR) NEGATIVE Nasal S. aureus Screen POSITIVE A Nasal MRSA/S.aureus Interp SEE NOTE Airway Mallampati Class: IV TM Dist: >3cm Neck ROM: Full Loose/Missing/Broken Teeth: No Heart: RRR Lungs: CTA Assessment and Plan Assessment Anesthesia Assessment: Anesthesia Plan Discussed and Chart Reviewed Final Anesthetic Review Family History of Problems with Anesthesia: No History of Problems with Anesthesia: No NPO: Yes ASA Class: III Final Preanesthetic Review: Meds/Allgs Chart Reviewed, Consent Obtained/Reviewed and Anes Risks/Benef Reviewed Patient Risk: Intermediate Procedure Risk: Low Anesthetic Plan Anesthetic Plan: GA Disposition: Standard PACU
[2023-11-14 17:25] VITALS: BP 140/86; PULSE 92; RESP 16; TEMP 36.1; O2SAT 99
--- NOTE | 2023-11-14 17:25 | P.BOP_ITS ---
Brief Operative Note Date of Service: 11/14/23 Pre-op diagnosis: Post-laminectomy syndrome Post-op diagnosis: same Procedure: Lumbar spinal cord stimulation implant Implants: Nevro HFX SCS system Surgeon: Porfirio Diane MD Anesthesia: GETA Was an Regulatory Affairs Strategy Specialist used for this Procedure?: No Estimated blood loss (mL): 25 Pathology: none sent Condition: stable Disposition: PACU
--- NOTE | 2023-11-14 17:26 | P.OP_ITS ---
Operative Note Operative Note Date of Service: 11/14/23 Narrative: Lumbar SCS Implant After proper identification, the patient was brought to the operating room. After induction of general anesthesia and intubation, the patient was placed in the prone position. Care was taken during positioning to protect and pad all pressure points. Clindamycin 900 mg was given as preoperative antibiotic prophylaxis. The back was prepped and draped in the usual sterile fashion using Chloroprep. The fluoroscope unit was sterilely draped and brought into field, the vertebral target and the L1/L2 interspace was localized with fluoroscopy. A 7 cm incision was then made in the midline back with a 15 blade between the L2 and L3 spinous processes. Electrocautery was used to dissect down to the prevertebral fascia. 2 sets of Tycron sutures per electrode for the anchor stitches were placed on the prevertebral fascia. Two 14-gauge introducer Epimed curved tip epidural needles were advanced using AP and contralateral oblique fluoroscopy views to the target interspace on either side of the L2 spinous process. Upon loss of resistance, the left electrode was threaded up to the top of T8 vertebral body. The right electrode was threaded to the mid T8 vertebral body. The leads advanced midline and dorsally. The needles were then backed out under live fluoroscopy, verifying that the electrodes were in the correct position and we then used the locking anchors to secure the electrodes down to the prevertebral fascia, tying them down with the Tycron sutures. At this point, a pocket for the generator was made in the right flank. A horizontal 2-inch incision was made using a 15 blade and combination of sharp dissection, blunt dissection and electrocautery was used. A pocket was created about half an inch below the skin. The pocket was then irrigated with normal saline containing vancomycin. Hemostasis was attained with electrocautery. We then tunneled the electrodes from the back into the pocket using the tunneling device. The electrodes were then connected to the generator. A single Tycron suture was thrown across the floor of the pocket and through the medial anchor hold of the generator. After interrogation with impedance check the generator was placed into the subcu taneous pocket and the anchoring suture tied. Care was taken not to get fluid in the generator connector block. The excess lead was closed beneath the generator creating a loop of strain relief as well. The neurostimulator generator was placed parallel to the skin at a depth of half an inch along for successful telemetry and impedence. The pocket was reirrigated and closed with the generator name facing out. Final electronic analysis was performed to ensure proper functioning. Two 1 inch strips of Surgicel were placed in the midline incision to improve microvascular hemostasis. One strip was placed in the generator pocket. Positioning of the leads was rechecked and confirmed with fluoroscopy and images saved. Both incisions were closed with a deep layer of running 2-0 Vicryl sutures, the deep dermal layer with 3-0 Vicryl sutures, simple interrupted and a running 4-0 Monocryl for the subcutaneous layer. We then secured the incision with Dermabond, steristrips and op-site dressings over both incisions. The patient tolerated the procedure well. The patient was then flipped back into the supine position, woken up and brought to the PACU in stable condition. Complications: None EBL: 25 mL
[2023-11-14 17:30] VITALS: BP 153/89; PULSE 93; RESP 18; O2SAT 99
[2023-11-14 17:35] VITALS: BP 144/91; PULSE 92; RESP 18; O2SAT 99
[2023-11-14 17:40] VITALS: BP 142/94; PULSE 95; RESP 20; TEMP 36.3; O2SAT 95
[2023-11-14 17:55] VITALS: BP 150/87; PULSE 89; RESP 20; TEMP 36.1; O2SAT 95
== END 2023-11-14 18:15 | disposition home or self-care (01) ==
PROVIDERS: Nurse Practitioner Family; PCP Nurse Practitioner Family; Visit Provider Internal Medicine
PROC: (CPT 63685; principal; 2023-11-14 11:30)
DX: M54.50 Low back pain, unspecified (principal); G89.4 Chronic pain syndrome; M96.1 Postlaminectomy syndrome, not elsewhere classified; M47.816 Spondylosis without myelopathy or radiculopathy, lumbar region; M53.3 Sacrococcygeal disorders, not elsewhere classified; G25.81 Restless legs syndrome; J45.50 Severe persistent asthma, uncomplicated; Z79.899 Other long term (current) drug therapy; Z88.0 Allergy status to penicillin; Z88.1 Allergy status to other antibiotic agents; Z88.2 Allergy status to sulfonamides; Z88.5 Allergy status to narcotic agent; Z88.8 Allergy status to other drugs, medicaments and biological substances; Z98.890 Other specified postprocedural states; Z87.891 Personal history of nicotine dependence
CPT/HCPCS: 63685; 63650 ×2; 87640; 87641; A4649; C1713; C1778; C1787; C1816; J0131; J0736; J1100; J2250; J2405; J2704; J3010; J3370

== ENCOUNTER → 2023-11-14 09:20 | Outpatient (BNV) | payer MEDICARE, MEDICAID, SELFPAY | PROVIDERS: PCP Nurse Practitioner Family; Visit Provider Internal Medicine | DX: M96.1 Postlaminectomy syndrome, not elsewhere classified (principal) | CPT/HCPCS: 63650; 63685 ==

== ENCOUNTER 2023-11-20 12:03 | Outpatient (AMB) | payer MEDICAID, SELFPAY ==
[2023-11-20 12:09] VITALS: BP 142/99; PULSE 108; O2SAT 98; BMI 39.9
--- NOTE | 2023-11-20 12:09 | A.OFFVIS_ITS ---
Intake Vital Signs 11/20/23 12:09 Height 5 ft 10 in Weight 278 lb BMI 39.9 BP 142/99 H Blood Pressure Location Lt brachial Position Sitting Pulse 108 H Pulse Source Pulse Oximeter Pulse Oximetry (%) 98 Oxygen Delivery Method Room Air Intake Visit Reasons: S/p Nevro SCS IMPLANT 11/14/23 Intake Note: Pain today 01/17 Client Service Consultant Required: No Accompanied by: Self / Same As Patient Allergies doxycycline [DOXYCYCLINE] Allergy (Intermediate, Verified 11/20/23 12:10) Hives, Rash morphine [MORPHINE] Allergy (Intermediate, Verified 11/20/23 12:10) CHEST PAIN Penicillins [PENICILLINS] Allergy (Intermediate, Verified 11/20/23 12:10) HIVES gabapentin Allergy (Mild, Verified 11/20/23 12:10) Rash bee pollen Allergy (Unknown, Verified 11/20/23 12:10) Swelling medical tape Allergy (Unknown, Verified 11/20/23 12:10) Rash naproxen Allergy (Unknown, Verified 11/20/23 12:10) Rash Sulfa (Sulfonamide Antibiotics) Allergy (Unknown, Verified 11/20/23 12:10) Tongue swelling, hives sulfamethoxazole [From Bactrim] Allergy (Unknown, Verified 11/20/23 12:10) Hives trimethoprim [From Bactrim] Allergy (Unknown, Verified 11/20/23 12:10) Hives HPI HPI Comments History of Present Illness Details Patient presents to the office today for follow up 1 week s/p SCS implant with Nev[employer]. Unfortunately [employer] rep is not available at this time of visit as patient has missed his earlier morning visit today. Patient reports 60% overall pain relief with improvement in function and mobility as well as his sleep and social interactions. He reports significant pain relief in his leg pain but continues to endorse lower back pain which he attributes to bulging discs per most recent MRI report. Unfortunately, MRI report is not available for review today. Patient considers Neurosurgical evaluation to address this in a near future. Denies any recent cough, cold, infection, fever, any significant changes in her medical history, medications or recent hospitalizations. Past Procedures: 11/14/23: Nevro SCS implant-60% relief, leg>back 08/29/23: Nevro SCS trial-70% pain relie f overall 03/28/23: Left therapeutic SIJ injection -100% ongoing pain relief 01/31/23: Left L4-L5 TFESI injection-90- 100% ongoing pain relief 11/22/22: Left glenohumeral steroid inje ction- 100% pain relief for 1 week, ongoing 50% pain relief 10/11/22: Left Therapeutic C4-C5-C6 MBB -80% ongoing pain relief 05/16/22: Diagnostic Bilateral L3-L4 DR L5 MBBs-40% left and 60% right for 5 hours 12/13/21: Left L4-L5 TFESI-90% radiating LLE pain relief, 10% axial pain relief. 03/07/22: Left therapeutic SIJ injection -70% pain relief PFSH Medical History Neck pain with history of cervical spinal surgery Failed back syndrome RLS (restless legs syndrome) Left carpal tunnel syndrome Medial epicondylitis, left elbow Severe persistent allergic asthma Surgical History S/P debridement History of inguinal hernia repair History of shoulder surgery Family History Father Diabetes mellitus Substance use disorder Mother No problems noted. Maternal Grandmother CVD (cardiovascular disease) Cancer Brother Labral tear of hip joint Mental health disorder Sister Mental health disorder Son No problems noted. Daughter No problems noted. 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 Alert and oriented. Mood and affect appropriate. Follows and participates in conversation appropriately. Respiratory effort is unlabored. Able to transition from sit to stand unassisted. Ambulates with bilaterally normal heel strike and toe off. All incisions are clean dry and intact. No pathological discharge, no redness, no swelling, no local temperature, no tenderness on palpation.?The wounds were washed with ChloraPrep and bacitracin ointment with dry sterile dressings were applied. Results Reviewed Results Reviewed: No imaging reports are available for review. Assessment & Plan Assessment & Plan (1) Failed back syndrome: Code(s): M96.1 - Postlaminectomy syndrome, not elsewhere classified (2) Thoracolumbar back pain: Code(s): M54.50 - Low back pain, unspecified; M54.6 - Pain in thoracic spine (3) Chronic pain syndrome: Code(s): G89.4 - Chronic pain syndrome (4) Lumbar spondylosis: Code(s): M47.816 - Spondylosis without myelopathy or radiculopathy, lumbar region Plan Patient is one week s/p Nevro SCS Implant with good results. The dressings were changed today in the office. Patient can remove dressing in 3-4 days and start shower. Patient is wearing abdominal binder. Activity restrictions and precautions reviewed with patient and his family. All questions and concerns have been answered and the patient agreed with the plan. The patient will follow up in one week for wound check and program adjustment with Kelsi Salgado. Coding Level of Care Code Est Pt Level 3 (62740) Diagnoses Failed back syndrome M96.1 Thoracolumbar back pain M54.50; M54.6 Chronic pain syndrome G89.4 Lumbar spondylosis M47.816
== END 2023-11-20 12:14 | disposition home or self-care (01) ==
LOC: HO.PMC 12:03
PROVIDERS: PCP Nurse Practitioner Family; Visit Provider Nurse Practitioner Family
DX: M96.1 Postlaminectomy syndrome, not elsewhere classified (principal); M54.50 Low back pain, unspecified; M54.6 Pain in thoracic spine; G89.4 Chronic pain syndrome; M47.816 Spondylosis without myelopathy or radiculopathy, lumbar region
CPT/HCPCS: 99024

== ENCOUNTER → 2023-11-20 12:03 | Outpatient (BNVA) | payer MEDICARE, MEDICAID, SELFPAY | PROVIDERS: PCP Nurse Practitioner Family; Visit Provider Nurse Practitioner Family | DX: M96.1 Postlaminectomy syndrome, not elsewhere classified (principal); M54.50 Low back pain, unspecified; M54.6 Pain in thoracic spine | CPT/HCPCS: 99212 ==

== ENCOUNTER 2023-11-27 10:46 | Outpatient (AMB) | payer MEDICAID, SELFPAY ==
[2023-11-27 10:55] VITALS: BP 138/104; PULSE 81; O2SAT 99; BMI 39.9
--- NOTE | 2023-11-27 10:55 | MHC.OFFVIS ---
Intake Vital Signs 11/27/23 10:55 Height 5 ft 10 in Weight 278 lb BMI 39.9 BP 138/104 H Blood Pressure Location Lt brachial Position Sitting Pulse 81 Pulse Source Pulse Oximeter Pulse Oximetry (%) 99 Oxygen Delivery Method Room Air Intake Visit Reasons: S/p Nevro SCS IMPLANT 11/14/23 Intake Note: Pain today 11/17 Gastroenterology Physician Required: No Accompanied by: Self / Same As Patient Allergies doxycycline [DOXYCYCLINE] Allergy (Intermediate, Verified 11/27/23 10:56) Hives, Rash morphine [MORPHINE] Allergy (Intermediate, Verified 11/27/23 10:56) CHEST PAIN Penicillins [PENICILLINS] Allergy (Intermediate, Verified 11/27/23 10:56) HIVES gabapentin Allergy (Mild, Verified 11/27/23 10:56) Rash bee pollen Allergy (Unknown, Verified 11/27/23 10:56) Swelling medical tape Allergy (Unknown, Verified 11/27/23 10:56) Rash naproxen Allergy (Unknown, Verified 11/27/23 10:56) Rash Sulfa (Sulfonamide Antibiotics) Allergy (Unknown, Verified 11/27/23 10:56) Tongue swelling, hives sulfamethoxazole [From Bactrim] Allergy (Unknown, Verified 11/27/23 10:56) Hives trimethoprim [From Bactrim] Allergy (Unknown, Verified 11/27/23 10:56) Hives HPI HPI Comments History of Present Illness Details Patient presents to the office today for follow up 2 weeks s/p SCS implant with Nevro. Kelsi Cullen is present during this visit as well. Patient reports 70% overall pain relief with improvement in function and mobility as well as his sleep and social interactions. Denies any recent cough, cold, infection, fever, any significant changes in her medical history, medications or recent hospitalizations except recent Strep-throat infection for which he recently started an antibiotic. The wound dressing was removed and the wound cleansed with ChloraPrep. The midline incision and right upper buttock battery wound site are clean, no pathological discharge or swelling. He does have mild several healing scabs with mild redness below midline incision and slightly on the side of right buttock which he attributes to recent scratching. Steri-strips are not present. There is no erythema or local temperature. Bacitracin ointment was applied to the wounds. Steri-Strips have been re-applied to the right buttock and midline incision today. Patient is encouraged to wear an abdominal binder. Past Procedures: 11/14/23: Nevro SCS implant-70% overall pain relief 08/29/23: Nevro SCS trial-70% pain relief 03/28/23: Left therapeutic SIJ injection-100% ongoing pain relief 01/31/23: Left L4-L5 TFESI [id number]-[id number]% ongoing pain relief 11/22/22: Left glenohumeral steroid injection- 100% pain relief for 1 week, ongoing 50% pain relief 10/11/22: Left Therapeutic C4-C5-C6 MBB -80% ongoing pain relief 05/16/22: Diagnostic Bilateral L3-L4 DR L5 MBBs-40% left and 60% right for 5 hours 12/13/21: Left L4-L5 TFESI-90% radiating LLE pain relief, 10% axial pain relief. 03/07/22: Left therapeutic SIJ injection-70% pain relief [facility] Medical History Neck pain with history of cervical spinal surgery Failed back syndrome RLS (restless legs syndrome) Left carpal tunnel syndrome Medial epicondylitis, left elbow Severe persistent allergic asthma Surgical History S/P debridement History of inguinal hernia repair History of shoulder surgery Family History Father Diabetes mellitus Substance use disorder Mother No problems noted. Maternal Grandmother CVD (cardiovascular disease) Cancer Brother Labral tear of hip joint Mental health disorder Sister Mental health disorder Son No problems noted. Daughter No problems noted. 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 Alert and oriented. Mood and affect appropriate. Follows and participates in conversation appropriately. Respiratory effort is unlabored. Able to transition from sit to stand unassisted. Ambulates with bilaterally normal heel strike and toe off. All incisions are clean dry and intact. No pathological discharge, no swelling, no local temperature, no tenderness on palpation except mild redness in scratched areas but not incisional wounds.?The wounds were washed with ChloraPrep and bacitracin ointment and Steri-Strips were re-applied. Results Reviewed Results Reviewed: No imaging reports are available for review. Assessment & Plan Assessment & Plan (1) Failed back syndrome: Code(s): M96.1 - Postlaminectomy syndrome, not elsewhere classified (2) Thoracolumbar back pain: Code(s): M54.50 - Low back pain, unspecified; M54.6 - Pain in thoracic spine (3) Chronic pain syndrome: Code(s): G89.4 - Chronic pain syndrome (4) Lumbar spondylosis: Code(s): M47.816 - Spondylosis without myelopathy or radiculopathy, lumbar region Plan Patient is 2 weeks s/p Nevro SCS Implant with good results. Patient reports he has improvement in his daily functioning, mobility, and sleep. Denies any untoward effects of SCS implant therapy. The dressings were changed today in the office. Patient instructed to avoid scratching at his incisional wound sites. Patient is encouraged to wear abdominal binder as tolerated. Activity restrictions and precautions reviewed with patient. Kelsi Cullen has been present during today's visit and reviewed patient's SCS device program options with patient. All questions and concerns have been answered and the patient agreed with the plan. Follow up as needed. Coding Level of Care Code Est Pt Level 3 (66163) Diagnoses Failed back syndrome M96.1 Thoracolumbar back pain M54.50; M54.6 Chronic pain syndrome G89.4 Lumbar spondylosis M47.816
== END 2023-11-27 11:18 | disposition home or self-care (01) ==
PROVIDERS: PCP Nurse Practitioner Family; Visit Provider Nurse Practitioner Family
DX: M96.1 Postlaminectomy syndrome, not elsewhere classified (principal); M54.50 Low back pain, unspecified; M54.6 Pain in thoracic spine; G89.4 Chronic pain syndrome; M47.816 Spondylosis without myelopathy or radiculopathy, lumbar region
CPT/HCPCS: 99213

== ENCOUNTER → 2023-11-27 10:46 | Outpatient (BNVA) | payer MEDICARE, MEDICAID, SELFPAY | PROVIDERS: PCP Nurse Practitioner Family; Visit Provider Nurse Practitioner Family | DX: M96.1 Postlaminectomy syndrome, not elsewhere classified (principal); M54.50 Low back pain, unspecified; G89.4 Chronic pain syndrome; M47.816 Spondylosis without myelopathy or radiculopathy, lumbar region | CPT/HCPCS: 99212 ==

== ENCOUNTER 2024-01-25 13:57 | Outpatient (REF) | payer MEDICARE, MEDICAID, SELFPAY ==
--- NOTE | ~2024-01-25 | XR_ITS ---
EXAMINATION: X-RAY THORACIC SPINE X-RAY LUMBAR SPINE CLINICAL INFORMATION: Postlaminectomy syndrome not elsewhere classified. COMPARISON: 05/03/2023 TECHNIQUE: 4 views of the thoracic spine. 6 views of the lumbar spine. FINDINGS: Thoracic spine: Slight rightward curvature of the midthoracic spine. Redemonstration of stable minimal T6 anterior wedge compression fracture. Minimal degenerative changes with small anterior osteophytes most prominent at T6-T7. Spinal cord stimulator present with tip projecting at the approximate level of the mid thoracic spine. Redemonstration of C4-C5 and C5-C6 anterior disc fusions and discectomies, incompletely imaged and poorly visualized for evaluation. Lumbar spine: Facet arthritis in the lower lumbar spine. Lumbar vertebral body heights and disc space heights are preserved. Minimal spondylosis in the lower lumbar spine. XR/XR lumbar spine 4V min IMPRESSION: 1. Mild rightward curvature of the midthoracic spine. 2. Chronic minimal T6 anterior wedge compression fracture redemonstrated. 3. Minimal degenerative changes in the thoracolumbar spine.
--- NOTE | ~2024-01-25 | XR_ITS ---
EXAMINATION: X-RAY THORACIC SPINE X-RAY LUMBAR SPINE CLINICAL INFORMATION: Postlaminectomy syndrome not elsewhere classified. COMPARISON: 05/03/2023 TECHNIQUE: 4 views of the thoracic spine. 6 views of the lumbar spine. FINDINGS: Thoracic spine: Slight rightward curvature of the midthoracic spine. Redemonstration of stable minimal T6 anterior wedge compression fracture. Minimal degenerative changes with small anterior osteophytes most prominent at T6-T7. Spinal cord stimulator present with tip projecting at the approximate level of the mid thoracic spine. Redemonstration of C4-C5 and C5-C6 anterior disc fusions and discectomies, incompletely imaged and poorly visualized for evaluation. Lumbar spine: Facet arthritis in the lower lumbar spine. Lumbar vertebral body heights and disc space heights are preserved. Minimal spondylosis in the lower lumbar spine. XR/XR thoracic spine 3V IMPRESSION: 1. Mild rightward curvature of the midthoracic spine. 2. Chronic minimal T6 anterior wedge compression fracture redemonstrated. 3. Minimal degenerative changes in the thoracolumbar spine.
== END 2024-01-25 13:58 | disposition home or self-care (01) ==
LOC: HO.XRAY 13:57
PROVIDERS: PCP Nurse Practitioner Family; Visit Provider Nurse Practitioner Family
DX: M96.1 Postlaminectomy syndrome, not elsewhere classified (principal); M47.26 Other spondylosis with radiculopathy, lumbar region; M54.50 Low back pain, unspecified; G89.4 Chronic pain syndrome; Z96.89 Presence of other specified functional implants
CPT/HCPCS: 72072; 72110; 99212

== ENCOUNTER 2024-01-25 13:57 | Outpatient (AMB) | payer MEDICAID, SELFPAY ==
--- NOTE | 2024-01-25 14:02 | MHC.OFFVIS ---
Vital Signs 01/25/24 14:15 Height 5 ft 10 in Weight 276 lb 4 oz BMI 39.6 BP 142/89 H Blood Pressure Location Lt brachial Position Sitting Pulse 101 H Pulse Source Pulse Oximeter Pulse Oximetry (%) 97 Oxygen Delivery Method Room Air Intake Visit Reasons: Discuss Surgery for Discs in back Intake Note: Pain today 12/18 Isotope Technician Required: No Accompanied by: Other Relationship Allergies doxycycline [DOXYCYCLINE] Allergy (Intermediate, Verified 01/25/24 14:15) Hives, Rash morphine [MORPHINE] Allergy (Intermediate, Verified 01/25/24 14:15) CHEST PAIN Penicillins [PENICILLINS] Allergy (Intermediate, Verified 01/25/24 14:15) HIVES gabapentin Allergy (Mild, Verified 01/25/24 14:15) Rash bee pollen Allergy (Unknown, Verified 01/25/24 14:15) Swelling medical tape Allergy (Unknown, Verified 01/25/24 14:15) Rash naproxen Allergy (Unknown, Verified 01/25/24 14:15) Rash Sulfa (Sulfonamide Antibiotics) Allergy (Unknown, Verified 01/25/24 14:15) Tongue swelling, hives sulfamethoxazole [From Bactrim] Allergy (Unknown, Verified 01/25/24 14:15) Hives trimethoprim [From Bactrim] Allergy (Unknown, Verified 01/25/24 14:15) Hives HPI Comments Details: Patient presents today for follow up for acute on chronic left sided low back pain with intermittent radiation into his left buttock, left hip and leg laterally. Patient denies any recent trauma, injury or falls but reports he has been more active since SCS implant 2 months ago. Patient reports SCS device has significantly improved his functioning, mobility and sleep but concerned for reoccurence of left lower back with radicular symptoms pain. Patient also reports he was cutting trees the other day which also involved some heavy lifting and bending. We will proceed with xray to rule out lead migration. Denies any recent cough, cold, infection, fever, any significant changes in her medical history, medications or recent hospitalizations except recent Strep-throat infection for which he recently started an antibiotic. The wound dressing was removed and the wound cleansed with ChloraPrep. The midline incision and right upper buttock battery wound site are clean, no pathological discharge or swelling. He does have mild several healing scabs with mild redness below midline incision and slightly on the side of right buttock which he attributes to recent scratching. Steri-strips are not present. There is no erythema or local temperature. Bacitracin ointment was applied to the wounds. Steri-Strips have been re-applied to the right buttock and midline incision today. Patient is encouraged to wear an abdominal binder. Past Procedures: 11/14/23: Nevro SCS implant-70% overall pain relief 08/29/23: Nevro SCS trial-70% pain relief 03/28/23: Left therapeutic SIJ injection-100% ongoing pain relief 01/31/23: Left L4-L5 TFESI [id number]% ongoing pain relief 11/22/22: Left glenohumeral steroid injection- 100% pain relief for 1 week, ongoing 50% pain relief 10/11/22: Left Therapeutic C4-C5-C6 MBB -80% ongoing pain relief 05/16/22: Diagnostic Bilateral L3-L4 DR L5 MBBs-40% left and 60% right for 5 hours 12/13/21: Left L4-L5 TFESI-90% radiating LLE pain relief, 10% axial pain relief. 03/07/22: Left therapeutic SIJ injection-70% pain relief PFSH Medical History Neck pain with history of cervical spinal surgery Failed back syndrome RLS (restless legs syndrome) Left carpal tunnel syndrome Medial epicondylitis, left elbow Severe persistent allergic asthma Surgical History S/P debridement History of inguinal hernia repair History of shoulder surgery Family History Father Diabetes mellitus Substance use disorder Mother No problems noted. Maternal Grandmother CVD (cardiovascular disease) Cancer Brother Labral tear of hip joint Mental health disorder Sister Mental health disorder Son No problems noted. Daughter No problems noted. 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 Alert and oriented. Mood and affect appropriate. Follows and participates in conversation appropriately. Respiratory effort is unlabored. Able to transition from sit to stand unassisted. Ambulates with bilaterally normal heel strike and toe off. Back/Spine/Pelvis Cervical Spine: cervical ROM normal, cervical muscular tenderness and No Cervical spine tenderness Thoracic/Lumbar Spine: thoracic and lumbar spine normal to inspection, Thoracic/lumbar spine scar(s), Lasegue's sign negative, straight leg raise negative bilaterally, pain with thoraco-lumbar ROM (left lower back), paraspinal muscle tenderness, thoraco-lumbar ROM limited, No thoracic spinal tenderness and No lumbar spinal tenderness Pelvis: buttock tenderness on the left and no sciatic notch tenderness Sacroiliac joints: on the right nontender and on the left (+Malachi's) tender to palpation Results Reviewed Results Reviewed: No imaging reports are available for review. Assessment & Plan Assessment & Plan (1) Failed back syndrome: Code(s): M96.1 - Postlaminectomy syndrome, not elsewhere classified Category: Medical (2) Spinal cord stimulator status: Code(s): Z96.89 - Presence of other specified functional implants Category: Medical (3) Left lumbar radiculopathy: Code(s): M54.16 - Radiculopathy, lumbar region Category: Medical (4) Failed back syndrome: Code(s): M96.1 - Postlaminectomy syndrome, not elsewhere classified Category: Medical (5) Spinal cord stimulator status: Code(s): Z96.89 - Presence of other specified functional implants Category: Medical (6) Thoracolumbar back pain: Code(s): M54.50 - Low back pain, unspecified; M54.6 - Pain in thoracic spine Category: Medical (7) Chronic pain syndrome: Code(s): G89.4 - Chronic pain syndrome Category: Medical (8) Lumbar spondylosis: Code(s): M47.816 - Spondylosis without myelopathy or radiculopathy, lumbar region Category: Medical Plan Patient is over 2 months s/p Nevro SCS Implant with good results and improvement in his ADLs, functioning, and sleep. However, reports re-occurence of left sided low back pain with radicular symptoms. SLR is negative. He reports being more physically active and recently was cutting trees with bending and heavy lifting. We will proceed with obtaining thoracic and lumbar spine images to rule out lead migration. Patient denies contacting [employer] rep. Depending on xray results, will schedule visit with [employer] rep to adjust programming for patient. Refill sent for pregabalin per patient's request. All questions and concerns have been answered and the patient agreed with the plan. Follow up for xray results and sooner as needed. Orders: Orders XR lumbar spine 4V min Today M54.16 - Radiculopathy, lumbar region, M96.1 - Postlaminectomy syndrome, not elsewhere classified, Z96.89 - Presence of other specified functional implants XR thoracic spine 3V Today M54.16 - Radiculopathy, lumbar region, M96.1 - Postlaminectomy syndrome, not elsewhere classified, Z96.89 - Presence of other specified functional implants Medications: Refilled pregabalin 150 mg PO BID 30 days 60 caps 1RF M47.816 - Spondylosis without myelopathy or radiculopathy, lumbar region, M54.16 - Radiculopathy, lumbar region, Z98.1 - Arthrodesis status Coding Level of Care Code Est Pt Level 4 (46317) Diagnoses Failed back syndrome M96.1 Spinal cord stimulator status Z96.89 Left lumbar radiculopathy M54.16 Thoracolumbar back pain M54.50; M54.6 Chronic pain syndrome G89.4 Lumbar spondylosis M47.816
[2024-01-25 14:15] VITALS: BP 142/89; PULSE 101; O2SAT 97; BMI 39.6
== END 2024-01-25 14:37 | disposition home or self-care (01) ==
PROVIDERS: PCP Nurse Practitioner Family; Visit Provider Nurse Practitioner Family
DX: M96.1 Postlaminectomy syndrome, not elsewhere classified (principal); Z96.89 Presence of other specified functional implants; M54.16 Radiculopathy, lumbar region; M54.50 Low back pain, unspecified; M54.6 Pain in thoracic spine; G89.4 Chronic pain syndrome; M47.816 Spondylosis without myelopathy or radiculopathy, lumbar region
CPT/HCPCS: 99214

== ENCOUNTER → 2024-01-29 08:46 | Outpatient (BNVA) | payer MEDICAID, SELFPAY | PROVIDERS: PCP Nurse Practitioner Family; Visit Provider Nurse Practitioner Family ==

== ENCOUNTER 2024-04-07 08:20 | Outpatient (AMB) | payer OTHER, SELFPAY ==
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
[2024-04-07 08:28] VITALS: BP 130/86; PULSE 77; O2SAT 95; BMI 37.9
== END 2024-04-07 11:14 | disposition home or self-care (01) ==
PROVIDERS: PCP Nurse Practitioner Family; Visit Provider Nurse Practitioner Family
DX: Z00.01 Encounter for general adult medical examination with abnormal findings (principal); E11.9 Type 2 diabetes mellitus without complications; Z23 Encounter for immunization
CPT/HCPCS: 90471; 90677; 99213; 99395

== ENCOUNTER 2024-04-07 09:20 | Outpatient (REF) | payer MEDICARE, SELFPAY ==
--- NOTE | ~2024-04-07 | XR_ITS ---
EXAMINATION: XR HIP, LEFT CLINICAL INFORMATION: Left hip COMPARISON: None available. TECHNIQUE: AP and frog-leg lateral views of the left hip. FINDINGS: No fracture. Alignment is anatomic. Hip joint space is maintained. Soft tissues are unremarkable. XR/XR hip LT min 2V IMPRESSION: Normal left hip.
[2024-04-07 10:15] LABS: MANUAL DIFF FLAG NO
[2024-04-07 10:19] LABS: Basophils Absolute Auto 0.1 X10*3/uL (0.0-0.2); Basophils Percent Auto 0.7 % (0-2); Eosinophils Absolute Auto 0.4 X10*3/uL (0.0-0.4); Eosinophils Percent Auto 4.9 % (0-4); Hematocrit 46.1 % (42.0-52.0); Hemoglobin 16.2 g/dl (14.0-18.0); Imm Gran Abs Auto 0.04 X10*3/uL (0.00-0.03); Imm Gran Pct Auto 0.5 % (0.0-0.4); Lymphocytes Absolute Auto 2.2 X10*3/uL (1.2-4.9); Lymphocytes Percent Auto 25.4 % (20-40); Mean Corpuscular HGB Conc 35.1 g/dl (31.0-36.0); Mean Corpuscular Hemoglobin 30.9 pg (27.0-33.0); Mean Corpuscular Volume 87.8 fL (80.0-98.0); Mean Platelet Volume 10.4 fL (9.4-12.4); Monocytes Absolute Auto 0.9 X10*3/uL (0.1-1.2); Monocytes Percent Auto 10.7 % (2-11); Neutrophils Absolute Auto 4.9 x10*3/uL (2.0-8.3); Neutrophils Percent Auto 57.8 % (45-73); Platelet Count 281 X10*3/uL (160-400); Red Blood Count 5.25 X10*6/uL (4.60-5.80); Red Cell Distribution Width 12.4 % (11.0-16.0); White Blood Count 8.5 X10*3/uL (4.8-10.8)
[2024-04-07 10:35] LABS: Estimated Average Glucose 280 mg/dL; Hemoglobin A1c % 11.4 % (<6.0)
[2024-04-07 11:22] LABS: Alanine Aminotransferase 23 U/L (0-40); Albumin Level 4.1 g/dL (3.5-5.0); Alkaline Phosphatase 147 U/L (39-117); Anion Gap 12 (12-20); Aspartate Amino Transferase 24 U/L (5-37); Bilirubin Total 0.5 mg/dL (0.0-1.0); Blood Urea Nitrogen 19 mg/dL (9-16); Calcium 9.3 mg/dL (8.4-10.2); Carbon Dioxide 27 mmol/L (22-29); Chloride 103 mmol/L (96-108); Cholesterol 159 mg/dL (<200); Estimated Glomerular Filt Rate > 60; Glucose Fasting 232 mg/dL (60-99); HDL Cholesterol 41 mg/dL (>40); LDL Cholesterol Calculated 94 mg/dL (<100); Potassium 3.8 mmol/L (3.3-5.1); Sodium 138 mmol/L (135-145); Total Protein 6.6 g/dL (6.5-8.0); Triglycerides 121 mg/dL (<150)
[2024-04-07 11:44] LABS: TSH reflex Free T4 3.13 uIU/mL (0.32-4.0)
[2024-04-07 13:29] LABS: Appearance Urine Cloudy; Color Urine Yellow; Glucose Urine UA 500 mg/dL (Negative); Leukocyte Esterase Urine Negative (Negative); Nitrite Urine Negative (Negative); PH 5.5 (5.0-9.0); Specific Gravity - Urine 1.025 (1.005-1.025); Urine Blood Negative (Negative); Urine Ketones Negative (Negative); Urine Protein Negative (Neg-Trace)
[2024-04-07 14:11] LABS: Creatinine Urine 153.85 mg/dL; Microalbum/Creatinine Ratio Ur 8.4 ug/mg cr (<30)
== END 2024-04-07 09:21 | disposition home or self-care (01) ==
LOC: HO.HMGCX 09:20
PROVIDERS: PCP Nurse Practitioner Family; Visit Provider Nurse Practitioner Family
DX: M25.552 Pain in left hip (principal); E11.9 Type 2 diabetes mellitus without complications; Z00.01 Encounter for general adult medical examination with abnormal findings
CPT/HCPCS: 36415; 73502; 80053; 80061; 81003; 82043; 82570; 83036; 84443; 85025

== ENCOUNTER 2024-05-02 10:51 | Outpatient (AMB) | payer MEDICARE, SELFPAY ==
--- NOTE | 2024-05-02 11:05 | A.OFFVIS_ITS ---
Vital Signs 05/02/24 11:07 Height 5 ft 10 in Weight 267 lb 13.786 oz BMI 38.4 BP 114/74 Blood Pressure Location Rt brachial Position Sitting Pulse 86 Pulse Source Pulse Oximeter Intake Visit Reasons: DM Intake Note: New patient present today for Diabetes Mellitus Management. 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: No Accompanied by: Spouse Allergies doxycycline [DOXYCYCLINE] Allergy (Intermediate, Verified 05/02/24 11:08) Hives, Rash morphine [MORPHINE] Allergy (Intermediate, Verified 05/02/24 11:08) CHEST PAIN Penicillins [PENICILLINS] Allergy (Intermediate, Verified 05/02/24 11:08) HIVES gabapentin Allergy (Mild, Verified 05/02/24 11:08) Rash bee pollen Allergy (Unknown, Verified 05/02/24 11:08) Swelling medical tape Allergy (Unknown, Verified 05/02/24 11:08) Rash naproxen Allergy (Unknown, Verified 05/02/24 11:08) Rash Sulfa (Sulfonamide Antibiotics) Allergy (Unknown, Verified 05/02/24 11:08) Tongue swelling, hives sulfamethoxazole [From Bactrim] Allergy (Unknown, Verified 05/02/24 11:08) Hives trimethoprim [From Bactrim] Allergy (Unknown, Verified 05/02/24 11:08) Hives HPI Comments Details: This is a 39-year-old male with a past medical history of newly diagnosed type 2 diabetes, LAM, obesity, severe asthma and chronic back pain presenting for initial endocrine consult for diabetic management. He is accompanied by his , Carisa. Hemoglobin a1c 11.4% 04/07/2024. Patient seems to have been prediabetic when A1c was drawn in 2021 at 5.8%. His uncles, grandmother and father had type II DM. Patient says he had not been feeling well for some time before presenting to [facility] at the time of diagnosis. Current medication regimen: Mounjaro 2.5 mg weekly (2 injections so far), metformin 1000 mg twice daily (1 week now at this dose). Patient endorses sour eructation after taking Metformin. Reviewed glucometer readings dating back to 04/17/24. 120 11am 05/01/24 141 12:31 am 122 2:46 pm 119 11:02pm 127 11:08 am 138 3:04 am 158 6:20 pm 108 7:12 am 121 8:12 pm 76 9:13 am 125 8:04 pm 135 7:23 am 105 12:30 pm 176 9:17 am 234 10:01 am 135 9:21 pm 207 6:26 pm 152 11:03 am 277 8:44 pm 04/17/24 Compliance issues: none He does karate and was walking 30 minutes per day. He is walking less now. Diet: Breakfast- cheese and sometimes ham and cheese omelette, drinks water now or ice sparkling water Lunch-sometimes eats lunch, but usually he does not Dinner-steak or chicken, steamed vegetables now Snacks/desserts: Doesn't like sweets, occasionally pringles, likes beef jerky, occasionally will have dark chocolate He stopped eating potato chips. Hypoglycemia symptoms: shaky several times and had to drink OJ Hyperglycemia symptoms: polyuria, sometimes blurry vision, nausea Eye exam: last year, [address] [facility] Microvascular complications: neuropathy in hands and feet Macrovascular complications: none Hypertension: treated with Lisinopril 2.5 mg daily Hyperlipidemia: treated with Atorvastatin 10 mg. LDL at goal <100. Seen by electronic equipment trades worker recently at his PCP's office. ROS: Respiratory: No shortness of breath Cardiovascular: No chest pain Gastrointestinal: No anorexia, nausea, vomiting or diarrhea. No abdominal pain Neurologic: No headache, dizziness, syncope Skin: No rash or ulcers Endocrine: see HPI Physical exam: Constitutional: Alert, in no distress. Head: Normocephalic. Eyes: Pupils are equal, round and reactive to light. Extraocular muscles intact. Ear, Nose and Throat: Canals clear. TMs normal. Normal nasal mucosa. No nasal discharge. No oral lesions. Neck: Supple, Full range of motion. No lymphadenopathy. No palpable thyroid masses. Respiratory: Clear to auscultation. Cardiovascular: S1 S2 regular. No murmurs. Right foot: Warm and well perfused. No clubbing, cyanosis or edema. DP pulse 3+. Intact vibratory sensation. Intact sensation to monofilament. Left foot: Warm and well perfused. No clubbing, cyanosis or edema. DP pulse 3+. Intact vibratory sensation. Intact sensation to monofilament. Bilateral onychomycosis. [facility] Medical History (Updated 05/02/24 @ 12:15 by DAVID Vieyra) Nail fungus Neck pain with history of cervical spinal surgery Failed back syndrome RLS (restless legs syndrome) Left carpal tunnel syndrome Medial epicondylitis, left elbow Severe persistent allergic asthma Surgical History (Updated 05/02/24 @ 11:13 by JENNIFER Livingston) Hx of carpal tunnel repair Hx of elbow surgery History of back surgery Hx of neck surgery S/P debridement History of inguinal hernia repair History of shoulder surgery Family History Father Diabetes mellitus Substance use disorder Mother No problems noted. Maternal Grandmother CVD (cardiovascular disease) Cancer Brother Labral tear of hip joint Mental health disorder Sister Mental health disorder Son No problems noted. Daughter No problems noted. 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 Current occupational exposures/hazards: No Cognitive needs: No Hearing needs: No Vision needs: No Physical Exam Vital Signs: Last Vital Signs Pulse 86 05/02/24 11:07 BP 114/74 05/02/24 11:07 BMI result Body Mass Index 38.4 Results Reviewed Results Reviewed: Laboratory Tests 04/07/24 04/07/24 09:27 09:29 Creatinine 0.91 Estimated GFR > 60 Hemoglobin A1c % 11.4 H Triglycerides 121 Cholesterol 159 LDL Cholesterol, Calc 94 HDL Cholesterol 41 Urine Creatinine 153.85 Urine Microalbumin 13.0 Microalb/Creat Ratio 8.4 Assessment & Plan Assessment & Plan (1) Newly diagnosed diabetes: Code(s): E11.9 - Type 2 diabetes mellitus without complications Category: Medical Plan In summary this is a 39 year old male with newly diagnosed Type II DM with good glycemic control based on recent glucose readings. Discussed pathophysiology of Type II Diabetes Mellitus with the patient in detail.? I explained the long-term risks and complications associated with uncontrolled diabetes including nephropathy, neuropathy, peripheral vascular d isease, retinopathy, increased risk of heart disease and stroke.? Discussed lifestyle modification with the patient. Recommended 30 minutes of moderately vigorous exercise 5 days per week to promote weight loss. The patient will schedule an eye exam. The patient is prescribed a CGM due to frequent hypoglycemia symptoms. The device is medically necessary to provide alerts for both hypo and hyperglycemia. If you experience low blood sugar, treat this by eating a chewable fruit candy like skittles or jelly beans (about 8 pieces), 4 ounces (1/2 cup) of fruit juice (not diet), 1 tablespoon of honey or 4 glucose tablets. If your blood sugar is under 50, take double the amount of one of the above. Recheck your blood sugar in 15 minutes. Decrease metformin to 1000 mg q.a.m. and 500 mg at night. After he finishes the prescription for Mounjaro 2.5 mg he will increase to 5 mg. Patient wants to lose weight so we will continue to increase his Mounjaro and decrease metformin as needed due to side effects and/or hypoglycemia. Referred to podiatry. Follow up in 3 months for diabetes. Orders: Referrals Podiatry Referral B35.1 - Tinea unguium, E11.9 - Type 2 diabetes mellitus without complications Medications: New tirzepatide (Mounjaro) 5 mg (0.5 mL) subcut QWEEK 2 mL 3RF blood-glucose meter,continuous (FreeStyle Galilea 3 [place]) as directed 1 ea 0RF blood-glucose sensor (FreeStyle Galilea 3 Sensor device) apply new sensor every 14 days as directed 2 ea 11RF glucose (Dex4 Glucose) until symptoms of low blood sugar are controlled 16 grams (4 x 4 gram) PO Q15M PRN 60 tabs 1RF hypoglycemia Discontinued tirzepatide (Mounjaro) Discontinued Reason: Doctor's Order 2.5 mg (0.5 mL) subcut QWEEK 4 weeks 2 mL 0RF Coding Level of Care Code New Pt Level 4 (82931) Complex EM visit Add On G2211 Diagnoses Newly diagnosed diabetes E11.9
[2024-05-02 11:07] VITALS: BP 114/74; PULSE 86; BMI 38.4
[2024-05-02 11:24] LABS: Glucose, Whole Blood 132 mg/dL (60-115)
== END 2024-05-02 12:06 | disposition home or self-care (01) ==
PROVIDERS: PCP Nurse Practitioner Family; Visit Provider Physician Assistant Medical
DX: E11.9 Type 2 diabetes mellitus without complications (principal)
CPT/HCPCS: 99204; G2211

== ENCOUNTER → 2024-05-02 10:51 | Outpatient (BNVA) | payer MEDICARE, SELFPAY | PROVIDERS: PCP Nurse Practitioner Family; Visit Provider Physician Assistant Medical | DX: E11.9 Type 2 diabetes mellitus without complications (principal); B35.1 Tinea unguium; G47.33 Obstructive sleep apnea (adult) (pediatric); Z71.89 Other specified counseling | CPT/HCPCS: 82947; 99202 ==

== ENCOUNTER 2024-08-26 13:53 | Outpatient (AMB) | payer MEDICARE, SELFPAY ==
--- NOTE | 2024-08-26 13:55 | A.OFFVIS_ITS ---
Vital Signs 08/26/24 14:00 Height 5 ft 10 in Weight 264 lb 8.875 oz BMI 38.0 BP 118/82 Blood Pressure Location Rt brachial Position Sitting Pulse 89 Pulse Source Pulse Oximeter Intake Visit Reasons: Type 2 DM/LVM Intake Note: Patient presents today for a follow-up on Type 2 Diabetes Mellitus: Last Diabetic eye exam was on: DUE Last Podiatry exam was on: Does not see a Heat Treatment Technician Most recent HbA1c: 5.7%, 08/26/2024 Random Glucose- 95 mg/dL, Today Television Maintenance Man Required: No Accompanied by: Self / Same As Patient Allergies doxycycline [DOXYCYCLINE] Allergy (Intermediate, Verified 08/26/24 13:56) Hives, Rash morphine [MORPHINE] Allergy (Intermediate, Verified 08/26/24 13:56) CHEST PAIN Penicillins [PENICILLINS] Allergy (Intermediate, Verified 08/26/24 13:56) HIVES gabapentin Allergy (Mild, Verified 08/26/24 13:56) Rash bee pollen Allergy (Unknown, Verified 08/26/24 13:56) Swelling medical tape Allergy (Unknown, Verified 08/26/24 13:56) Rash naproxen Allergy (Unknown, Verified 08/26/24 13:56) Rash Sulfa (Sulfonamide Antibiotics) Allergy (Unknown, Verified 08/26/24 13:56) Tongue swelling, hives sulfamethoxazole [From Bactrim] Allergy (Unknown, Verified 08/26/24 13:56) Hives trimethoprim [From Bactrim] Allergy (Unknown, Verified 08/26/24 13:56) Hives HPI Comments Details: This is a 39-year-old male with a past medical history of newly diagnosed type 2 diabetes, LAM, obesity, severe asthma and chronic back pain presenting fo diabetic management. He is accompanied by his , Carisa. He was diagnosed with diabetes during the Summer of 2023. Hemoglobin a1c 11.4% 04/07/2024. A1c today 12/17/24 is 5.7%. His uncles, grandmother and father had type II DM. Current medication regimen: Mounjaro 5 mg weekly and metformin 1000 mg once daily. Patient endorses sour eructation after taking Metformin. Reviewed glucometer download. No hypoglycemia. Compliance issues: none He does karate (not recently due left shoulder surgery) and walks 30 minutes per day. Diet: Stopped eating chips. Only has juice once per week. Decreased portion sizes and is trying to follow low carb/low sugar. Seen by vet assistant at his PCP's office. Hypoglycemia symptoms: none Hyperglycemia symptoms: none Eye exam: last year, [facility]. Patient advised to schedule exam. Microvascular complications: none Macrovascular complications: none Hypertension: treated with Lisinopril 2.5 mg daily Hyperlipidemia: treated with Atorvastatin 10 mg. LDL at goal <100. ROS: Respiratory: No shortness of breath Cardiovascular: No chest pain Gastrointestinal: No anorexia, nausea, vomiting or diarrhea. No abdominal pain Neurologic: No headache, dizziness, syncope Skin: No rash or ulcers Endocrine: see HPI Physical exam: Constitutional: Alert, in no distress. Head: Normocephalic. Eyes: Pupils are equal, round and reactive to light. Extraocular muscles intact. Ear, Nose and Throat: Canals clear. TMs normal. Normal nasal mucosa. No nasal discharge. No oral lesions. Neck: Supple, Full range of motion. No lymphadenopathy. No palpable thyroid masses. Respiratory: Clear to auscultation. Cardiovascular: S1 S2 regular. No murmurs. Right foot: Warm and well perfused. No clubbing, cyanosis or edema. DP pulse 3+. Intact vibratory sensation. Intact sensation to monofilament. Left foot: Warm and well perfused. No clubbing, cyanosis or edema. DP pulse 3+. Intact vibratory sensation. Intact sensation to monofilament. Bilateral onychomycosis. [facility] Medical History (Updated 08/26/24 @ 14:41 by DAVID Vieyra) Controlled type 2 diabetes mellitus Type II diabetes mellitus Nail fungus Neck pain with history of cervical spinal surgery Failed back syndrome RLS (restless legs syndrome) Left carpal tunnel syndrome Medial epicondylitis, left elbow Severe persistent allergic asthma Surgical History Hx of carpal tunnel repair Hx of elbow surgery History of back surgery Hx of neck surgery S/P debridement History of inguinal hernia repair History of shoulder surgery Family History Father Diabetes mellitus Substance use disorder Mother No problems noted. Maternal Grandmother CVD (cardiovascular disease) Cancer Brother Labral tear of hip joint Mental health disorder Sister Mental health disorder Son No problems noted. Daughter No problems noted. 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 Current occupational exposures/hazards: No Cognitive needs: No Hearing needs: No Vision needs: No Physical Exam Vital Signs: Last Vital Signs Pulse 89 08/26/24 14:00 BP 118/82 08/26/24 14:00 BMI result Body Mass Index 38.0 Results AMB Hemoglobin A1c AMB Hemoglobin A1c 5.7 % Last Edit by JENNIFER Dhillon on 08/26/24 14:13 Results Reviewed Results Reviewed: Laboratory Tests 04/07/24 04/07/24 09:27 09:29 Creatinine 0.91 Estimated GFR > 60 Hemoglobin A1c % 11.4 H Triglycerides 121 Cholesterol 159 LDL Cholesterol, Calc 94 HDL Cholesterol 41 Urine Creatinine 153.85 Urine Microalbumin 13.0 Microalb/Creat Ratio 8.4 Assessment & Plan Assessment & Plan (1) Controlled type 2 diabetes mellitus: Code(s): E11.9 - Type 2 diabetes mellitus without complications Category: Medical Plan In summary this is a 39 year old male with well controlled Type II DM on Mounjaro and Metformin. Mild side effects on Metformin. Change to ER formular and decrease to 500 mg onc e daily. Continue Mounjaro 5 mg once weekly. Check b12 on Metformin and BMP. Discussed pathophysiology of Type II Diabetes Mellitus with the patient in detail.? I explained the halfway risks and complications associated with uncontrolled diabetes including nephropathy, neuropathy, peripheral vascular disease, retinopathy, increased risk of heart disease and stroke.? Discussed lifestyle modification with the patient. Recommended 30 minutes of moderately vigorous exercise 5 days per week to promote weight loss. The patient will schedule an eye exam. Recommended trial of The Right BMI. Patient declines for now. If you experience low blood sugar, treat this by eating a chewable fruit candy like skittles or jelly beans (about 8 pieces), 4 ounces (1/2 cup) of fruit juice (not diet), 1 tablespoon of honey or 4 glucose tablets. If your blood sugar is under 50, take double the amount of one of the above. Recheck your blood sugar in 15 minutes. Follow up in 3 months for diabetes. Orders: Orders Vitamin B12 Today E11.9 - Type 2 diabetes mellitus without complications, Z91.89 - Other specified personal risk factors, not elsewhere classified Basic Metabolic Panel Today E11.9 - Type 2 diabetes mellitus without complications AMB Hemoglobin A1c Today E11.9 - Type 2 diabetes mellitus without complications Medications: New metformin ER 500 mg PO DAILY 90 tabs 0RF Refilled blood sugar diagnostic (OneTouch Verio test strips) Test blood sugar once a day 100 ea 3RF E11.9 - Type 2 diabetes mellitus without complications Discontinued metformin Discontinued Reason: Doctor's Order 1,000 mg PO BID 180 tabs 3RF glucose (Dex4 Glucose) until symptoms of low blood sugar are controlled Discontinued Reason: Doctor's Order 16 grams (4 x 4 gram) PO Q15M PRN 60 tabs 1RF hypoglycemia Coding Level of Care Code Est Pt Level 4 (48168) Complex EM visit Add On G2211 Diagnoses Controlled type 2 diabetes mellitus E11.9
[2024-08-26 14:00] VITALS: BP 118/82; PULSE 89; BMI 38.0
[2024-08-27 14:43] LABS: Glucose, Whole Blood 95 mg/dL (60-115)
== END 2024-08-26 14:36 | disposition home or self-care (01) ==
PROVIDERS: PCP Nurse Practitioner Family; Visit Provider Physician Assistant Medical
DX: E11.9 Type 2 diabetes mellitus without complications (principal)

== ENCOUNTER 2024-08-26 13:53 | Outpatient (REF) | payer OTHER, SELFPAY ==
[2024-08-26 15:29] LABS: Anion Gap 10 (12-20); Blood Urea Nitrogen 13 mg/dL (9-16); Calcium 8.9 mg/dL (8.4-10.2); Carbon Dioxide 29 mmol/L (22-29); Chloride 105 mmol/L (96-108); Estimated Glomerular Filt Rate > 60; Glucose Random 99 mg/dL (60-115); Potassium 4.2 mmol/L (3.3-5.1); Sodium 140 mmol/L (135-145)
[2024-08-26 15:57] LABS: Vitamin B12 318 pg/mL (200-900)
[2024-08-30 12:33] LABS: Alk.Phos Iso. Macrohepatic 0 % (<=0); Alk.Phos Isoenzymes Bone 20 % (28-66); Alk.Phos Isoenzymes Intest 50 % (1-24); Alk.Phos Isoenzymes Liver 30 % (25-69); Alk.Phos Isoenzymes Placental 0 % (<=0); Alk.Phos Isoenzymes Total 110 U/L (36-130)
== END 2024-08-26 13:54 | disposition home or self-care (01) ==
LOC: HO.LAB 13:53
PROVIDERS: PCP Nurse Practitioner Family; Visit Provider Physician Assistant Medical
DX: E11.9 Type 2 diabetes mellitus without complications (principal); Z91.89 Other specified personal risk factors, not elsewhere classified; R74.8 Abnormal levels of other serum enzymes
CPT/HCPCS: 36415; 80048; 82607; 82947; 83036; 84080; 99212

== ENCOUNTER 2024-11-25 13:44 | Outpatient (AMB) | payer MEDICARE, SELFPAY ==
--- NOTE | 2024-11-25 14:13 | A.OFFVIS_ITS ---
Vital Signs 11/25/24 14:15 Height 5 ft 10 in Weight 268 lb 15.423 oz BMI 38.6 BP 106/62 Blood Pressure Location Rt brachial Position Sitting Pulse 88 Pulse Source Pulse Oximeter Pulse Oximetry (%) 96 Oxygen Delivery Method Room Air Intake Visit Reasons: Type II diabetes Intake Note: Patient present today to follow up on Type 2 Diabetes Mellitus. Last Diabetic Eye exam: Due, 1 year ago Last Podiatry Visit: Does not see a Poditarist Random Glucose: 113 mg/dl HgA1C: 5.8% 11/25/2024 Oven Attendant Required: No Accompanied by: Significant Other Allergies doxycycline [DOXYCYCLINE] Allergy (Intermediate, Verified 11/25/24 14:16) Hives, Rash morphine [MORPHINE] Allergy (Intermediate, Verified 11/25/24 14:16) CHEST PAIN Penicillins [PENICILLINS] Allergy (Intermediate, Verified 11/25/24 14:16) HIVES gabapentin Allergy (Mild, Verified 11/25/24 14:16) Rash bee pollen Allergy (Unknown, Verified 11/25/24 14:16) Swelling medical tape Allergy (Unknown, Verified 11/25/24 14:16) Rash naproxen Allergy (Unknown, Verified 11/25/24 14:16) Rash Sulfa (Sulfonamide Antibiotics) Allergy (Unknown, Verified 11/25/24 14:16) Tongue swelling, hives sulfamethoxazole [From Bactrim] Allergy (Unknown, Verified 11/25/24 14:16) Hives trimethoprim [From Bactrim] Allergy (Unknown, Verified 11/25/24 14:16) Hives HPI Comments Details: This is a 39-year-old male with a past medical history of type 2 diabetes, LAM, obesity, severe asthma and chronic back pain presenting for diabetic management. He is accompanied by his , Carisa. He was diagnosed with diabetes during the Summer of 2023. Hemoglobin a1c 11.4% 04/07/2024. A1c today 5.8%. His uncles, grandmother and father had type II DM. He forgot his meter, but he reports the following information: Fasting sugars in the morning or in the 90s Postprandial: 120-130s He had 1 high blood sugar a few months ago that was 198. Current medication regimen: Mounjaro 5 mg weekly and metformin extended release 500 mg once a day. Sour eructation improved after reducing the dose of metformin. He still has it sometimes. No hypoglycemia. Compliance issues: none. Eye exam: last year, [facility]. Microvascular complications: none Macrovascular complications: none Hypertension: treated with Lisinopril 2.5 mg daily Hyperlipidemia: treated with Atorvastatin 10 mg. ROS: Respiratory: No shortness of breath Cardiovascular: No chest pain Gastrointestinal: No anorexia, nausea, vomiting or diarrhea. No abdominal pain Neurologic: No headache, dizziness, syncope Skin: No rash or ulcers Endocrine: see HPI Physical exam: Constitutional: Alert, in no distress. Head: Normocephalic. Eyes: Pupils are equal, round and reactive to light. Extraocular muscles intact. Ear, Nose and Throat: Canals clear. TMs normal. Normal nasal mucosa. No nasal discharge. No oral lesions. Neck: Supple, Full range of motion. No lymphadenopathy. No palpable thyroid masses. Respiratory: Clear to auscultation. Cardiovascular: S1 S2 regular. No murmurs. [facility] Medical History (Updated 09/02/24 @ 08:57 by Leroy Harley, [facility]) Left lateral epicondylitis Controlled type 2 diabetes mellitus Type II diabetes mellitus Nail fungus Neck pain with history of cervical spinal surgery Failed back syndrome RLS (restless legs syndrome) Left carpal tunnel syndrome Medial epicondylitis, left elbow Severe persistent allergic asthma Surgical History (Updated 11/25/24 @ 14:18 by JENNIFER Livingston) Hx of carpal tunnel repair Hx of elbow surgery History of back surgery Hx of neck surgery S/P debridement History of inguinal hernia repair History of shoulder surgery Family History Father Diabetes mellitus Substance use disorder Mother No problems noted. Maternal Grandmother CVD (cardiovascular disease) Cancer Brother Labral tear of hip joint Mental health disorder Sister Mental health disorder Son No problems noted. Daughter No problems noted. 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 Current occupational exposures/hazards: No Cognitive needs: No Hearing needs: No Vision needs: No Physical Exam Vital Signs: Last Vital Signs Pulse 88 11/25/24 14:15 BP 106/62 11/25/24 14:15 Pulse Ox 96 11/25/24 14:15 Oxygen Delivery Method Room Air 11/25/24 14:15 BMI result Body Mass Index 38.6 Results AMB Hemoglobin A1c AMB Hemoglobin A1c 5.8 % Last Edit by JENNIFER Livingston on 11/25/24 14:33 Results Reviewed Results Reviewed: Laboratory Last Values Glucose (Clinic) 113 mg/dL (60-115) 11/25/24 14:24 Laboratory Tests 04/07/24 04/07/24 08/26/24 09:27 09:29 13:56 Creatinine Estimated GFR Hgb A1c (Clinic) 5.7 AST 24 ALT 23 Triglycerides 121 Cholesterol 159 LDL Cholesterol, Calc 94 HDL Cholesterol 41 Vitamin B12 TSH 3.13 Urine Creatinine 153.85 Urine Microalbumin 13.0 Microalb/Creat Ratio 8.4 08/26/24 14:50 Creatinine 1.04 Estimated GFR > 60 Hgb A1c (Clinic) AST ALT Triglycerides Cholesterol LDL Cholesterol, Calc HDL Cholesterol Vitamin B12 318 TSH Urine Creatinine Urine Microalbumin Microalb/Creat Ratio Fib 4 value based on most recent labs in 0.68. Assessment & Plan Assessment & Plan (1) Controlled type 2 diabetes mellitus: Code(s): E11.9 - Type 2 diabetes mellitus without complications Category: Medical Plan In summary this is a 39 year old male with well controlled Type II DM on Mounjaro and Metformin. He wants to target weight loss. Increase Mounjaro to 7.5 mg weekly. Stop metformin. Discussed pathophysiology of Type II Diabetes Mellitus with the patient in detail.? I explained the long term care pharmacist risks and complications associated with uncontrolled diabetes including nephropathy, neuropathy, peripheral vascular disease, retinopathy, increased risk of heart disease and stroke.? Discussed lifestyle modification with the patient. Recommended 30 minutes of moderately vigorous exercise 5 days per week to promote weight loss. The patient will schedule an eye exam. Recommended trial of The Right BMI. Patient declines for now. Reviewed treatment of hypoglycemia. Follow up in 3 months for diabetes. Ordered labs to be done prior to the next appointment. Orders: Orders AMB Hemoglobin A1c Today E11.9 - Type 2 diabetes mellitus without complications Alanine Aminotransferase 3 Months E11.9 - Type 2 diabetes mellitus without complications, R79.89 - Other specified abnormal findings of blood chemistry Aspartate Amino Transferase 3 Months E11.9 - Type 2 diabetes mellitus without complications Platelet Count 3 Months E11.9 - Type 2 diabetes mellitus without complications Vitamin B12 3 Months E11.9 - Type 2 diabetes mellitus without complications, Z91.89 - Other specified personal risk factors, not elsewhere classified Lipid Panel 3 Months E11.9 - Type 2 diabetes mellitus without complications, E78.5 - Hyperlipidemia, unspecified Microalbumin, Random (w Creat) 3 Months E11.9 - Type 2 diabetes mellitus without complications Creatinine 3 Months E11.9 - Type 2 diabetes mellitus without complications Hemoglobin A1c 3 Months E11.9 - Type 2 diabetes mellitus without complications Medications: New tirzepatide (Mounjaro) 7.5 mg (0.5 mL) subcut QWEEK 2 mL 3RF tirzepatide (Mounjaro) 7.5 mg (0.5 mL) subcut QWEEK 6 mL 1RF Discontinued tirzepatide (Mounjaro) Discontinued Reason: Doctor's Order 5 mg (0.5 mL) subcut QWEEK 2 mL 3RF metformin ER Discontinued Reason: Doctor's Order 500 mg PO DAILY 90 tabs 0RF Patient Instructions: Stop Metformin. Increase Mounjaro to 7.5 mg weekly. If your fasting blood sugars are consistently over 130-140 in the morning, call me and I will increase Mounjaro to 10 mg weekly. Coding Level of Care Code Est Pt Level 4 (45805) Complex EM visit Add On G2211 Diagnoses Controlled type 2 diabetes mellitus E11.9
[2024-11-25 14:15] VITALS: BP 106/62; PULSE 88; O2SAT 96; BMI 38.6
[2024-11-25 14:28] LABS: Glucose, Whole Blood 113 mg/dL (60-115)
--- OUTSIDE RECORDS SUMMARY | 2024-11-25 16:16 | XMS_ITS | Clinical Summary ---
Author Organization [facility] Address [id number] [place] [id number] Care Team Providers Care Forging Press Setter Up Name Role Phone Miky Suggs Primary Care Provider [phone] Social History Tobacco Use Types Packs/Day Years Used Date Smoking Tobacco: Never Assessed Sex and Gender Information Value Date Recorded Sex Assigned at Not on file Legal Sex Male 9:18 AM EST Gender Identity Not on file Sexual Orientation Not on file Plan of Treatment Health Maintenance Due Date Last Done Comments DTaP,Tdap,and Td Vaccines (1 - Tdap) 2005 Hepatitis B Vaccines (1 of 3 - 19+ 3-dose series) 2005 COVID-19 Vaccine (2023-2 5 season) 2024 Influenza Vaccine (#1) 2024 07/31/2013 HIB Vaccines Aged Out No longer eligi ble based on patient's age to complete this topic HPV Vaccines Aged Out No longer eligi ble based on patient's age to complete this topic Hepatitis A Vaccines Aged Out No long er eligible based on patient's age to complete this topic IPV Vaccines Aged Out No longer eligi ble based on patient's age to complete this topic MMR Vaccines Aged Out No longer eligi ble based on patient's age to complete this topic Meningococcal ACWY Vaccine Aged Out N o longer eligible based on patient's age to complete this topic Meningococcal B Vacine Aged Out No lo nger eligible based on patient's age to complete this topic Pneumococcal Vaccine: Pediat rics (0 to 5 Years) and At-Risk Patients (6 to 64 Years) Aged Out No longer eligi ble based on patient's age to complete this topic RSV Immunization Patients [place] 20 months Aged Out No longer eligible b ased on patient's age to complete this topic Varicella Vaccines Aged Out No longer eligible based on patient's age to complete this topic Care Teams Forging Press Setter Up Relationship Specialty Start Date End Date Miky Suggs DO [address] [place] [id number] PCP - General Orthopedic Surgery 01/05/16
== END 2024-11-25 14:48 | disposition home or self-care (01) ==
LOC: HO.ENCR 13:45
PROVIDERS: PCP Nurse Practitioner Family; Visit Provider Physician Assistant Medical
DX: E11.9 Type 2 diabetes mellitus without complications (principal)

== ENCOUNTER → 2024-11-25 13:44 | Outpatient (BNVA) | payer OTHER, SELFPAY | PROVIDERS: PCP Nurse Practitioner Family; Visit Provider Physician Assistant Medical | DX: E11.9 Type 2 diabetes mellitus without complications (principal); E66.9 Obesity, unspecified; E78.5 Hyperlipidemia, unspecified; Z68.38 Body mass index [BMI] 38.0-38.9, adult | CPT/HCPCS: 82947; 83036; 99212 ==

== ENCOUNTER 2025-07-20 13:02 | Outpatient (REF) | payer OTHER, SELFPAY ==
--- NOTE | ~2025-07-20 | XR_ITS ---
EXAMINATION: XR LUMBOSACRAL SPINE CLINICAL INFORMATION: M96.1 - Postlaminectomy syndrome, not elsewhere classified COMPARISON: January 25, 2024 TECHNIQUE: AP and lateral views. FINDINGS: There is a metallic reservoir for neurostimulator intraspinal canal electrodes entering at the posterior T12-L1 level. No acute cortical disruption or malalignment. No lytic or blastic lesions. XR/XR lumbar spine 2-3V IMPRESSION: No acute fracture or listhesis. Intraspinal canal neurostimulator device electrodes entering at T12-L1. EXAMINATION: XR THORACIC SPINE CLINICAL INFORMATION: M96.1 - Postlaminectomy syndrome, not elsewhere classified COMPARISON: Main 72,024. TECHNIQUE: AP lateral and swimmer's projection. FINDINGS: There are 2 intraspinal canal neurostimulator electrodes and they have T7-8/superior endplate of T8. Mild multilevel spondylosis. No acute cortical disruption or malalignment. No lytic or blastic lesions. IMPRESSION: Stable thoracic spine. Electronically signed by: Young Washington MD 07/20/2025 02:24 PM MAURICIO
--- NOTE | ~2025-07-20 | XR_ITS ---
EXAMINATION: XR LUMBOSACRAL SPINE CLINICAL INFORMATION: M96.1 - Postlaminectomy syndrome, not elsewhere classified COMPARISON: January 25, 2024 TECHNIQUE: AP and lateral views. FINDINGS: There is a metallic reservoir for neurostimulator intraspinal canal electrodes entering at the posterior T12-L1 level. No acute cortical disruption or malalignment. No lytic or blastic lesions. XR/XR thoracic spine 3V IMPRESSION: No acute fracture or listhesis. Intraspinal canal neurostimulator device electrodes entering at T12-L1. EXAMINATION: XR THORACIC SPINE CLINICAL INFORMATION: M96.1 - Postlaminectomy syndrome, not elsewhere classified COMPARISON: Main 72,024. TECHNIQUE: AP lateral and swimmer's projection. FINDINGS: There are 2 intraspinal canal neurostimulator electrodes and they have T7-8/superior endplate of T8. Mild multilevel spondylosis. No acute cortical disruption or malalignment. No lytic or blastic lesions. IMPRESSION: Stable thoracic spine. Electronically signed by: Young Washington MD 07/20/2025 02:24 PM [facility]ICIO
--- OUTSIDE RECORDS SUMMARY | 2025-07-20 15:40 | XMS_ITS | Clinical Summary ---
Author Organization [facility] ity Address [address] [place] [address] Care Team Providers Care Ldr Rn Name Role Phone Miky Suggs Primary Care Provider [phone] Social History Tobacco Use Types Packs/Day Years [...] of 3 - 19+ 3-dose series) 2005 HPV Vaccines (1 - 3-dose SCD M series) 2013 Depression Screening 09/10/2024 COVID-19 Vaccine ( - 2023-2 5 season) 2025 Influenza Vaccine (#1) 2025 07/31/2013 RSV Immunization Adult Patie nts (1 - 1-dose 75+ series) 2061 HIB Vaccines Aged Out No longer eligi [...] age to complete this topic Meningococcal B Vaccine Aged Out No l onger eligible based on patient's age to complete this topic Pneumococcal Vaccine: Pediat rics (0 to 5 Years) and At-Risk Patients (6 to 49 Years) Aged Out No longer eligi ble based on patient's age to complete this topic RSV Immunization Patients Un az[place] 20 months Aged Out No longer eligible b ased on patient's age to complete this topic Varicella Vaccines Aged Out No longer eligible based on patient's age to complete this topic Care Teams Ldr Rn Relationship Specialty Start Date End Date Miky Suggs DO [address] [place] [id number] PCP - General Orthopedic Surgery 01/05/16
== END 2025-07-20 13:03 | disposition home or self-care (01) ==
LOC: HO.XRAY 13:02
PROVIDERS: PCP Nurse Practitioner Family; Visit Provider Nurse Practitioner Family
DX: M96.1 Postlaminectomy syndrome, not elsewhere classified (principal); M47.816 Spondylosis without myelopathy or radiculopathy, lumbar region; M54.2 Cervicalgia; M54.16 Radiculopathy, lumbar region; M54.12 Radiculopathy, cervical region; M54.50 Low back pain, unspecified; Z96.89 Presence of other specified functional implants; Z98.1 Arthrodesis status
CPT/HCPCS: 72072; 72100; 99212

== ENCOUNTER 2025-07-20 13:02 | Outpatient (AMB) | payer OTHER, SELFPAY ==
--- NOTE | 2025-07-20 13:05 | A.OFFVIS_ITS ---
Vital Signs 07/20/25 13:08 Height 5 ft 10 in Weight 253 lb 6 oz BMI 36.4 BP 132/78 Blood Pressure Location Lt brachial Position Sitting Pulse 90 Pulse Source Pulse Oximeter Pulse Oximetry (%) 97 Oxygen Delivery Method Room Air Intake Visit Reasons: Medication Follow Up Intake Note: Pain today 02/17 Survey Project Manager Required: No Accompanied by: Self / Same As Patient Allergies doxycycline (DOXYCYCLINE) Allergy (Intermediate, Verified 07/20/25 13:09) Hives, Rash morphine (MORPHINE) Allergy (Intermediate, Verified 07/20/25 13:09) CHEST PAIN Penicillins (PENICILLINS) Allergy (Intermediate, Verified 07/20/25 13:09) HIVES gabapentin Allergy (Mild, Verified 07/20/25 13:09) Rash bee pollen Allergy (Unknown, Verified 07/20/25 13:09) Swelling medical tape Allergy (Unknown, Verified 07/20/25 13:09) Rash naproxen Allergy (Unknown, Verified 07/20/25 13:09) Rash Sulfa (Sulfonamide Antibiotics) Allergy (Unknown, Verified 07/20/25 13:09) Tongue swelling, hives sulfamethoxazole (From Bactrim) Allergy (Unknown, Verified 07/20/25 13:09) Hives trimethoprim (From Bactrim) Allergy (Unknown, Verified 07/20/25 13:09) Hives HPI Comments Details: The patient is a 40-year-old male presenting with chronic neck and back pain and medication refill. The pain has been persistent, and the patient has been on pregabalin, which he takes once to twice daily, with no reported side effects. He reports that the medication has been effective in managing his symptoms. Approximately a year ago, the patient underwent surgery for a C4-C5 disc issue, which resulted in the temporary loss of function in his left arm. He has since regained some function but continues to experience weakness and pain in the neck area. Patient continues with regular home exercise program to maintain function and improve flexibility. Recently, the patient sprained his quadriceps muscle while engaging in physical activity, specifically while playing baseball and bowling. He describes the incident as occurring when he pushed off his leg, resulting in a pop and subsequent fall. The patient has a history of diabetes mellitus, which he states is well- controlled. He also has a spinal cord stimulator implanted, which he reports has been beneficial in managing his leg pain. Denies any recent cough, cold, infection, fever or any other significant changes in medical history since last office visit. Past Procedures: 11/14/23: Nevro SCS implant-70% overall pain relief 08/29/23: Nevro SCS trial-70% pain relief 03/28/23: Left therapeutic SIJ injection-100% ongoing pain relief 01/31/23: Left L4-L5 TFESI [id number]% ongoing pain relief 11/22/22: Left glenohumeral steroid injection- 100% pain relief for 1 week, ongoing 50% pain relief 10/11/22: Left Therapeutic C4-C5-C6 MBB -80% ongoing pain relief 05/16/22: Diagnostic Bilateral L3-L4 DR L5 MBBs-40% left and 60% right for 5 hours 12/13/21: Left L4-L5 TFESI-90% radiating LLE pain relief, 10% axial pain relief. 03/07/22: Left therapeutic SIJ injection-70% pain relief PFSH Medical History Left lateral epicondylitis Controlled type 2 diabetes mellitus Type II diabetes mellitus Nail fungus Neck pain with history of cervical spinal surgery Failed back syndrome RLS (restless legs syndrome) Left carpal tunnel syndrome Medial epicondylitis, left elbow Severe persistent allergic asthma Surgical History Hx of carpal tunnel repair Hx of elbow surgery History of back surgery Hx of neck surgery S/P debridement History of inguinal hernia repair History of shoulder surgery Family History Father Diabetes mellitus Substance use disorder Mother No problems noted. Maternal Grandmother CVD (cardiovascular disease) Cancer Brother Labral tear of hip joint Mental health disorder Sister Mental health disorder Son No problems noted. Daughter No problems noted. 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 Alert and oriented. Mood and affect appropriate. Follows and participates in conversation appropriately. Respiratory effort is unlabored. Able to transition from sit to stand unassisted. Ambulates with bilaterally normal heel strike and toe off. Back/Spine/Pelvis Cervical Spine: cervical muscular tenderness, Cervical spine scars present and No Cervical spine tenderness Thoracic/Lumbar Spine: thoracic and lumbar spine normal to inspection, Thoracic/lumbar spine scar(s), pain with thoraco-lumbar ROM, thoraco-lumbar ROM limited, No thoracic spinal tenderness and No lumbar spinal tenderness Extrem General: Yes capillary refill normal, Yes no clubbing, cyanosis or edema and Yes no calf tenderness Psych Appearance: grossly normal Mental Status: mental status grossly normal Speech and movement: Normal speech and movement present and Clear speech present Affect: normal affect Attitude: cooperative Thought process: Normal thought process present Thought content: Normal thought content present, suicidality (none), no hallucinations and No Depressive thoughts present Insight: Good insight present (Psych) Judgement: Good judgement present (Psych) Results Reviewed Results Reviewed: XR LUMBOSACRAL SPINE 07/20/25 CLINICAL INFORMATION: M96.1 - Postlaminectomy syndrome, not elsewhere classified COMPARISON: January 25, 2024 TECHNIQUE: AP and lateral views. FINDINGS: There is a metallic reservoir for neurostimulator intraspinal canal electrodes entering at the posterior T12-L1 level. No acute cortical disruption or malalignment. No lytic or blastic lesions. IMPRESSION: No acute fracture or listhesis. Intraspinal canal neurostimulator device electrodes entering at T12-L1. XR THORACIC SPINE 07/20/25 CLINICAL INFORMATION: M96.1 - Postlaminectomy syndrome, not elsewhere classified COMPARISON: 2023. TECHNIQUE: AP lateral and swimmer's projection. FINDINGS: There are 2 intraspinal canal neurostimulator electrodes and they have T7-8/superior endplate of T8. Mild multilevel spondylosis. No acute cortical disruption or malalignment. No lytic or blastic lesions. IMPRESSION: Stable thoracic spine. Assessment & Plan Assessment & Plan (1) Cervicalgia: Code(s): M54.2 - Cervicalgia Category: Medical (2) Left lumbar radiculopathy: Code(s): M54.16 - Radiculopathy, lumbar region Category: Medical (3) Hx of fusion of cervical spine: Code(s): Z98.1 - Arthrodesis status Category: Surgical (4) Failed back syndrome: Code(s): M96.1 - Postlaminectomy syndrome, not elsewhere classified Category: Medical (5) Cervical radiculopathy: Code(s): M54.12 - Radiculopathy, cervical region Category: Medical (6) Spinal cord stimulator status: Code(s): Z96.89 - Presence of other specified functional implants Category: Medical (7) Lumbar spondylosis: Code(s): M47.816 - Spondylosis without myelopathy or radiculopathy, lumbar region Category: Medical (8) Low back pain: Code(s): M54.50 - Low back pain, unspecified Category: Medical Plan The plan includes continuing pregabalin for chronic neck and back pain, with an increase to 200 mg twice daily , and monitoring for effectiveness and side effects. The patient is advised to report back in 3-4 weeks regarding the efficacy and any side effects of the adjusted dosage. For the quadriceps muscle strain, the patient should monitor symptoms and seek further evaluation if necessary. A thoracic and lumbar spine x-rays were completed today and show no lead migration of the spinal cord stimulator as noted above. Results were called to patient with imaging findings. All questions and concerns have been answered and patient agreed with the treatment plan. Follow up as needed. Patient was informed and verbally consented to the use of an ambient scribe for clinic note documentation during this visit. Orders: Orders XR thoracic spine 3V Today M96.1 - Postlaminectomy syndrome, not elsewhere classified, Z96.89 - Presence of other specified functional implants XR lumbar spine 2-3V Today M96.1 - Postlaminectomy syndrome, not elsewhere classified, Z96.89 - Presence of other specified functional implants Medications: Changed From pregabalin 150 mg PO BID 30 days 60 caps 1RF M54.12 - Radiculopathy, cervical region, M54.16 - Radiculopathy, lumbar region, M54.2 - Cervicalgia, M96.1 - Postlaminectomy syndrome, not elsewhere classified, Z98.1 - Arthrodesis status To pregabalin 200 mg PO BID 60 caps 0RF pain 30 days M54.12 - Radiculopathy, cervical region, M54.16 - Radiculopathy, lumbar region, M54.2 - Cervicalgia, M96.1 - Postlaminectomy syndrome, not elsewhere classified, Z98.1 - Arthrodesis status Coding Level of Care Code Est Pt Level 4 (53744) Complex EM visit Add On G2211 Diagnoses Cervicalgia M54.2 Left lumbar radiculopathy M54.16 Hx of fusion of cervical spine Z98.1 Failed back syndrome M96.1 Cervical radiculopathy M54.12 Spinal cord stimulator status Z96.89 Lumbar spondylosis M47.816 Low back pain M54.50
[2025-07-20 13:08] VITALS: BP 132/78; PULSE 90; O2SAT 97; BMI 36.4
--- OUTSIDE RECORDS SUMMARY | 2025-07-20 15:11 | XMS_ITS | Data Portability ---
Author Organization [facility] Sammy [facility], [facility] Address [address] [place] [address] Care Team Providers Care Patient Scheduling Coordinator Name Role Phone BORA MANNING Primary Care Provider Assessment Encounter Date Assessment Date Assessment LastModified by Organization Details LastModified Time 09/01/2024 09/01/2024 Assessment: Left elbow lateral epicondylitis mild symptoms, stable left, left carpal tunnel syndrome Plan: Findings reviewed with the patient. We have decided not to perform a cortisone injection today given the risks of further tendon degradation and his minimal symptoms exam today. Carpal tunnel symptoms and lateral epicondylar symptoms may both be improved with use of a bilateral wrist splint. He is provided with the prescription for a left wrist Velcro wrist splint today. Follow-up for both these problems on as needed basis. We have discussed the possibility of proceeding with a left carpal tunnel release surgery when ready. The patient is ambulatory, but has weakness and/or instability of their extremity which requires stabilization from this semi-rigid/rigid orthosis to improve their function. Verbal and written instructions for their use and application of this item were given. patient was instructed that should the brace result in increased pain, decreased sensation, increased swelling or an overall worsening of their medical condition, to please contact our office immediately. whit Not available 09/01/2024 13:21:16 09/17/2024 09/17/2024 Procedure/Date:l eft biceps tenodesis 07/29/2024 History: Doing well, no complications Exam: Wound benign, motion full Radiographs: none Clinical Status: Doing well postoperatively Work Status/Plan:not applicable Physical Therapy Status: Continue per protocol Medication Prescriptions: [none given] Plan/Follow up:[address] [facility] speech recognition dam tender assistant software was used to create portions of this document. An attempt at proofreading has been made to minimize errors. Please call for corrections. Not available 09/17/2024 15:16:38 02/09/2025 02/09/2025 Dx:Left shoulder surgery 07/29/2024 Interval History:Doing well, mild intermittent pain but for the most part happy with status and fully functional. SocHx: nonsmoker, nondrinker Past Medical/Surgical History/Meds/Allerg ies reviewed and charted ROS: negative Physical Exam: afebrile, vital signs stable, in no apparent distress, oriented to person/place/time. Gait symmetric. Skin intact without erythema. Heart RRR Lungs: clear Abdomen soft, nontender. LeftSHOULDER: no redness, warmth, deformity. Range of motion full in all planes with no stiffness. Strength 5/5 all muscle groups. Apprehension negative. Impingement sign negative. Acromioclavicular joint nontender without irritability with cross body adduction. Neurovascular Exam wnl. Contralateral SHOULDER: no redness, warmth, deformity. Range of motion full in all planes with no stiffnes. Strength 5/5 all muscle groups. Apprehension negative. Impingement sign negative. Acromioclavicular joint nontender without irritability to cross body adduction. Neurovascular Exam wnl. New Studies: none Impression:Doing well status post left shoulder surgery Plan: 1.Patient back to all activities and restrictions, follow up with me porestes [facility] speech recognition dam tender assistant software was used to create portions of this document. An attempt at proofreading has been made to minimize errors. Please call for corrections. Not available 02/09/2025 14:05:22 06/26/2025 06/26/2025 Chief Complaint: Left quadriceps muscle tear, possible proximal rectus femoris avulsion HPI: 40-year-old male presents with left quadriceps pain and weakness. Patient reports initial injury occurred approximately one month ago while playing baseball at a [employer] outing. Two days ago, he experienced an acute exacerbation with a 'popping' sensation in the left thigh while climbing over a chair at his uncle's camper just 2 days ago. He immediately fell to the ground and has had significant pain since. Patient describes pain localized to the anterior thigh region. He reports difficulty with weight-bearing activities, inability to extend his knee independently, and pain with certain movements like getting into bed. He states he can walk but with discomfort. Patient is concerned about his ability to participate in his regular activities including bowling and karate. He mentions having had previous groin surgery. No reported fever, numbness, tingling, or other associated symptoms. He has a past mental history of asthma and diabetes. Medications are listed in medical record. Allergies listed in medical record. He is and unemployed. He denies tobacco use. No personal history of blood clots, however, he does have a family history. Past medical, surgical, family and social history; Medications, Allergies and 12-point review of systems have been reviewed, updated and charted. Physical Examination: Height and weight as listed in chart. Constitutional: Patient pleasant, well appearing and in NAD. Mental status: Patient is alert and oriented to person, place and time. No short-term memory deficits. Psychiatric: Mood and affect are appropriate. Head: Normocephalic and atraumatic. Exterior inspection of the ears and nose was unremarkable. Hearing grossly intact. Eyes: Sclera are not blue. awning craftsman II-XII are grossly intact. Full extraocular motion. Neck: Supple with age-appropriate ROM. No tracheal deviation. No obvious JVD. Respiratory: Non-labored breathing. Symmetric excursion. No audible wheezing or crackles. Skin: No rashes, lesions, wounds to the lower extremities. Normal turgor and coloration. Musculoskeletal: On examination of the left lower extremity, he exhibits tenderness to palpation within the quadricep muscle belly. Distal quadriceps tendon remington he is able to maintain a straight leg raise. He is able to ambulate unassisted. He does have some discomfort in his quadriceps region with quad stretching. His knee is ligamentously intact. No joint line tenderness. No pain with knee range of motion. Diagnostic Imaging: X-rays ordered, obtained and reviewed at [facility]. These images included 4 views of the left femur. No acute fractures or dislocations. Relatively normal hip and tibiofemoral joint space. Normal bony cortices. Impression and Plan: 40-year-old male with acute onset left thigh pain and overall history and exam consistent with left quadricep intramuscular tear versus possible proximal rectus femoris avulsion. 1. Left Quadriceps Muscle Tear/Rectus Femoris Tendon Rupture: - Clinical presentation consistent with a quadriceps muscle tear, likely involving the rectus femoris at its proximal attachment. - Conservative management indicated as surgical intervention is not typically beneficial for this type of injury. - Discontinue knee immobilizer as the injury is primarily muscular rather than involving the knee joint. - Physical therapy referral provided for rehabilitation, focusing on gentle stretching and progressive strengthening. - Recommend daily stationary bike exercise for 10 minutes to promote healing and maintain conditioning. - Advised to perform gentle quadriceps stretching (heel to buttock) and massage to address muscle cramping. - Low-dose anti-inflammatory medication as needed for pain management. 2. Activity Modifications: - Avoid high-impact activities including karate for at least 2 weeks. - Temporarily refrain from bowling until initial healing occurs, approximately 2 weeks. - Emphasize proper warm-up and stretching before any physical activity to prevent re-injury or contralateral injury. - Anticipate gradual improvement over the next month with appropriate therapy and home exercise program. I anticipate significant improvement in overall symptoms over the next 6 weeks. He may follow up as needed. All questions and concerns addressed. Today's visit involved examining the patient, reviewing the history, reviewing the radiographic studies, counseling the patient regarding treatment options, and the administrative tasks including placing orders, preparing patient information and home handouts and preparing the visit note. This note was generated with [facility] speech recognition dam tender assistant dictation software. Please excuse any errors that may have been overlooked during review of this note. Sometimes, these errors may affect the content or meaning of a given sentence. Please call for corrections. [email or web address] Not available 06/26/2025 12:47:35 Plan of Treatment Reminders Order Date Submit Date Provider Last Modified By Organization Details Last Modified Time Details Appointments None recorded. Lab None recorded. Referral physical therapist referral - Stretching, eccentric strengtheni ng, ROM, modalities as tolerated. 2024 025 [email or web address] 5 Not available 12:39:01 Procedures None recorded. Surgeries None recorded. Imaging XR, femur, 1 view - rm 218 lt femur 2024 025 [email or web address] 5 [facility], [address], [address], [place], [address], 12:39:01 XR, knee, 3 view - 3v L knee. room 3 2024 025 [email or web address] [facility], [address], [facility] [address], [place], [address], 14:48:58 Medication Orders None recorded. Patient TargetsNo targets recorded. Patient InstructionsNo instructions recorded. Reason for Referral Physical Therapist Referral for Injury of left leg Stretching, eccentric strengthening, ROM, modalities as tolerated. Referring Physician: Paco Ramirez, Orthopedic Surgery, Encounter Date: 06/26/2025 Results Created Date Observation Date Name Description Value Unit Range Abnormal Flag Note LastModifiedBy Organization Detail LastModifiedTime 10/30/1910/30/2024 XR, knee, 3 view http:/ [email or web address] ?Encry pted=s hAaTro YD8dLq bEUv6g %2BXZw aYqtaq 0bqfl% 2Fg9IQ a4ajBk vP9nXo QUaueC m3YtLR FvZlgJ JJ8mAn HZtai3 3j1260 AC0Kqb XyNVqC jKiQtr MwF INTERFACE [facility] [address] [facility] [facility] [address], [place], [address], 10/30/2024 14:25:24 10/30/19 25 10/30/2024 XR, knee, 3 view [email or web address]:/ [email or web address] ?Encry pted=s hAaTro YD8dLq bEUv6g %2BXZw aYqtaq 0bqfl% 2Fg9IQ a4ajBk vP9nXo QUaueC m3YtLR FvZlgJ JJ8mAn HZtai3 2e1113 AC0Kqb XyNVqC jKiQtr MwF INTERFACE [facility] [address] [facility] [address], [place], [address], 10/30/2024 14:25:26 06/26/20 25 06/26/2025 XR, hip + pelvi s, unila teral , 2 or 3 view [email or web address]:/ [email or web address] ?Encry pted=s hAaTro YD8dLq bEUv6g %2BXZw aYqtaq 0bqfl% 2Fg9IQ a4ajBk vP9nXo QUaueC m3YtLR FvZlgJ JJ8mAn HZtai3 4h3872 AC0KlY n2BUqC iKiQtr MwF INTERFACE [facility] Office [address] [facility] [address], [place], [address], 06/26/2025 11:31:40 06/26/2006/26/2025 XR, hip + pelvi s, unila teral , 2 or 3 view http:/ [email or web address] ?Encry pted=s hAaTro YD8dLq bEUv6g %2BXZw aYqtaq 0bqfl% 2Fg9IQ a4ajBk vP9nXo QUaueC m3YtLR FvZlgJ JJ8mAn HZtai3 2p7456 AC0KlY n2BUqC iKiQtr MwF INTERFACE [facility] Office [address] [facility] [address], [place], [address], 06/26/2025 11:31:42 Result Notes Documentation Provider Name and Address Organization Details Recorded Time Xr, Knee, 3 View : [email or web address]? Encrypted=rjXkUtaRT7rEyyC Uv6g%7HIUzxKlwye2chzp%2Fg 4XVo0bhZdmB6zUlOCdquAd4Ll CRLoEwlBCM6tMlBOead35v291 9HF4RqsKmOWaRrUwIpkCmB Not Available [facility] 10/30/2024 14:25: 25 Xr, Knee, 3 View : [email or web address]? Encrypted=lcYmIcoYM1rKwyQ Uv6g%4WPHbnUzdut3fldo%2Fg 1NPn8tgMipE8dCcJNhleUs7Ay LRXfDzmHYW5hXzJUeup43g676 7HF4JjwKtUEgHuZzNpfSwP Not Available [facility] 10/30/2024 14:25: 27 Xr, Hip + Pelvis, Unilateral, 2 Or 3 View : [email or web address]? Encrypted=scUjMecGJ1qDasD Uv6g%8QSAccOqlxp0bpii%2Fg 4BNx8lqOalT3eLiVHhshLq7Fa SJBgNezGXC4pWqDJotb74u542 5AZ7NlOl0ZNnSwGeVksYaZ Not Available [facility] 06/26/2025 11:31: 40 Xr, Hip + Pelvis, Unilateral, 2 Or 3 View : [email or web address] Encrypted=jmNjYryKL9rBttE Uv6g%6WCDaaUrmrr4rroa%2Fg 4QSs7ciWsiL3wGcEAazoLb9Sm EJZbPlfXWV3cShTWprh75y142 6UQ5LsOn6IRqShLhCpdFoB Not Available [facility] 06/26/2025 11:31: 42 Problems Name Problem SNOMED Code Status Onset Date Resolution Date Notes Provider Name and Address Organization Details Recorded Time Degeneration of cervical intervertebr al disc 49583017 Active 2014 Problem Code: M50.30; Problem Code Type: ICD-10; Status: 'A'; Not Available [facility] 4 11:28:42 Problem Notes None recorded. Procedures Surgical History Date Name Laterality Status Provider Name and Address Organization Details Recorded Time 4 Elbow Kenalog 1cc Injection, L/R completed Arlet Royal MD [address] [place] [address] [address], [place], [address], [facility] 03/28/2024 13:49:56 3 operation on neck completed MAHAMED RETANA [facility] 06/30/2024 10:16:04 1 excision of distal clavicle completed [facility]HAMED RETANA [facility] 06/30/2024 10:16:44 Imaging Results None recorded. Procedure Notes None recorded. Medical Equipment None Reported. Allergies Allergen ID Allergen Name Allergen Category Reaction Reaction Severity Criticality Documentation Date Start Date Code Code System Note Provider Name and Address Organization Details Recorded Time 100824 nut - unspecifi ed food Not available Not available Not available 07/23/2024 NENAMIKHAIL ANDRADESAMARIA zaragoza [facility] 4 13:32:26 18224 morphine sulfate medicatio n Not available Not available Not available 11/12/20232015 30712 RxNorm Aller gyRea ction : 'Skin React ion'; Not Available [facility] 4 12:57:37 70066 gabapenti n medicatio n Not available Not available Not available 11/12/20232018 50861 RxNorm Not Available [facility] 4 12:57:37 86160 hazelnut allergeni c extract food Not available Not available Not available 11/12/20232014 60493 3 RxNorm Amarilys Greene mila [facility] 4 10:37:11 56880 adhesive tape environme nt,medica tion Not available Not available Not available 11/12/20232015 Not Available [facility] 4 12:57:37 43142 Product containin g penicilli n (product) medicatio n Not available Not available Not available 11/12/20232015 15739 8001 SNOMED Not Available [facility] 4 12:57:38 Medications Name Sig Start Date Stop Date Status Note LastModified by Organization Details LastModified Time metformin 500 mg tablet TAKE 1 TABLET BY MOUTH TWICE A DAY 06/30 completed Not Available Not Available Not Available cetirizine 10 mg tablet TAKE 1 TABLET BY MOUTH EVERY DAY*8NOT COVERED BUY OTC active Not Available Not Available No t Available atorvastati n 10 mg tablet TAKE 1 TABLET BY MOUTH EVERY DAY active Not Available Not Available No t Available cefpodoxime 200 mg tablet TAKE 1 TABLET BY MOUTH TWICE A DAY active Not Available Not Available No t Available azithromyci n 250 mg tablet TAKE 2 TABLETS BY MOUTH TODAY, THEN TAKE 1 TABLET DAILY FOR 4 DAYS DIRECTED active Not Available Not Available No t Available allopurinol 100 mg tablet TAKE 1 TABLET BY MOUTH EVERY DAY active Not Available Not Available No t Available omeprazole 40 mg capsule,del ayed release TAKE 1 CAPSULE BY MOUTH EVERY DAY active Not Available Not Available No t Available oxycodone-a cetaminophe n 5 mg-325 mg tablet TAKE 1 TABLET BY MOUTH EVERY 8 HOURS NEEDED FOR SEVERE PAIN (SCALE SCORE 7-10) 07/23 completed Not Available Not Available Not Available cephalexin 500 mg capsule TAKE 1 CAPSULE BY MOUTH TWICE A DAY FOR 10 DAYS active Not Available Not Available No t Available pseudoephed rine-guaife nesin ER 80-700 mg tablet,exte nded release 1qddo not drive while on this medicatio n 09/27 completed Statu s: 'Disc ontin ued'; Not Available Not Available Not Available metformin 1,000 mg tablet TAKE 1 TABLET BY MOUTH TWICE A DAY active Not Available Not Available No t Available prednisone 50 mg tablet TAKE 1 TABLET BY MOUTH EVERY DAY FOR 5 DAYS active Not Available Not Available No t Available glucose 4 gram chewable tablet PLEASE SEE ATTACHED FOR DETAILED DIRECTION S active Not Available Not Available No t Available diclofenac sodium 75 mg tablet,jose daniel yed release TAKE 1 TABLET BY MOUTH 2 TIMES A DAY NEEDED FOR PAIN FOR 30 DAYS active Not Available Not Available No t Available oxycodone-a cetaminophe n 2.5 mg-325 mg tablet TAKE 2 TABLETS BY MOUTH EVERY 6 HOURS NEEDED FOR PAIN FOR 3 DAYS 07/23 completed Not Available Not Available Not Available methylpredn isolone 4 mg tablets in a dose pack TAKE 6 TABLETS ON DAY 1 DIRECTED ON PACKAGE AND DECREASE BY 1 TAB EACH DAY FOR A TOTAL OF 6 DAYS active Not Available Not Available No t Available albuterol sulfate HFA 90 mcg/actuati on aerosol inhaler TAKE 2 APPLICATO R (INHALATI ON) EVERY 6 HOURS (WHEEZING ) active Not Available Not Available No t Available ondansetron 4 mg disintegrat ing tablet TAKE 1 TABLET BY MOUTH EVERY 8 HOURS FOR 3 DAYS 09/17 completed Not Available Not Available Not Available cefdinir 300 mg capsule TAKE 1 CAPSULE BY MOUTH TWICE A DAY FOR 10 DAYS active Not Available Not Available No t Available metformin ER 500 mg tablet,exte nded release 24 hr active Not Available Not Available Not Available clotrimazol e 1 % topical cream TAKE 1 APPLICATI ON (TOPICAL) 2 TIMES PER DAY FOR 4 WKS active Not Available Not Available No t Available lisinopril 2.5 mg tablet TAKE 1 TABLET BY MOUTH EVERY DAY active Not Available Not Available No t Available oxycodone 5 mg tablet Take 1 tablet every 12 hours by oral route as needed for 7 days, for postopera tive pain. 09/17 completed Not Available Not Available Not Available cyclobenzap rine 5 mg tablet TAKE 1 TABLET (5 MG) ORALLY 3 TIMES A DAY NEEDED FOR FOR MUSCLE SPASM active Not Available Not Available No t Available pregabalin 150 mg capsule TAKE 1 CAPSULE BY MOUTH 2 TIMES A DAY FOR 30 DAYS active Not Available Not Available No t Available Benadryl 1 po qhs for sleep and itch 03/28 completed Statu s: 'Disc ontin ued'; Not Available Not Available Not Available pregabalin Pregabali n 100MG Capsule 09/28 completed Statu s: 'Disc ontin ued'; Not Available Not Available Not Available diclofenac 1 % topical gel DIRECTED 1-3 GRAMS (PUMPS) TO AFFECTED AREA 3-4 TIMES A DAY NEEDED FOR PAIN 07/23 completed Not Available Not Available Not Available cholecalcif tulio (vitamin D3) 50 mcg (2,000 unit) capsule TAKE 1 SOFTGEL ORALLY DAILY FOR 90 DAYS active Not Available Not Available No t Available oxycodone HCl-oxycodo ne-ASA four times a day as needed for painDO NOT DRIVE WHILE ON THIS MEDICATIO N 09/27 completed Statu s: 'Disc ontin ued'; Not Available Not Available Not Available OneTouch Verio test strips USE TO TEST BLOOD SUGAR ONCE A DAY active Not Available Not Available No t Available Jonny Borges [facility] spacer USE 1 DEVICE ONLY ONCE FOR 1 DOSE 07/23 completed Not Available Not Available Not Available OneTouch Verio Flex Meter USE DIRECTED 07/23 completed Not Available Not Available Not Available OneTouch Delica Plus Lancet 33 gauge USE TO TEST BLOOD SUGAR ONCE A DAY active Not Available Not Available No t Available Mounjaro 7.5 mg/0.5 mL subcutaneou s pen injector INJECT 7.5 MG (0.5 ML) SUBCUTANE OUSLY EVERY WEEK active Not Available Not Available No t Available Mounjaro 5 mg/0.5 mL subcutaneou s pen injector INJECT 0.5 ML (5 MG) SUBCUTANE OUSLY WEEKLY active Not Available Not Available No t Available Mounjaro 2.5 mg/0.5 mL subcutaneou s pen injector INJECT 2.5 MG (0.5 ML) SUBCUTANE OUSLY WEEKLY FOR 4 WEEKS 06/30 completed Not Available Not Available Not Available Vitals Date Recorded Body height Body mass index (BMI) Body weight Provider Name and Address Organization Details Last Updated DateTime 09/17/2024 175.26 cm 39.3 kg/m2 025211.57 g MARTÍN COSBY [facility] 09/17/2024 14:51:29 Date Recorded Body height Body mass index (BMI) Body weight Provider Name and Address Organization Details Last Updated DateTime 10/30/2024 175.26 cm 39.3 kg/m2 806819.57 g Samia Pichardo [facility] 10/30/2024 14:13:32 Date Recorded Body height Body mass index (BMI) Body weight Provider Name and Address Organization Details Last Updated DateTime 02/09/2025 175.26 cm 38.1 kg/m2 923780.83 g MAHAMED RETANA [facility] 02/09/2025 13:20:45 Date Recorded Body height Body mass index (BMI) Body weight Provider Name and Address Organization Details Last Updated DateTime 06/26/2025 177.8 cm 37.3 kg/m2 694067.02 g NOEMI COX [facility] 06/29/2025 08:52:28 Date Recorded Body height Body mass index (BMI) Body weight Provider Name and Address Organization Details Last Updated DateTime 09/01/2024 175.26 cm 39.3 kg/m2 693965.57 g Radha Collier [facility] 09/01/2024 12:58:15 Social History Question Answer Notes LastModified by Organizat ion Details LastModified Time Tobacco Smoking Status Never Smoker MARTÍN zaragoza [place] [facility] [place] [facility] 09/15/2024 11:21:48 Have You Ever Been Counseled For Unhealthy Alcohol Use? No Information not available 09/15/2024 What Is Your Relationship Status? Information not available 09/15/2024 Sex: Unknown Functional Status Question Answer Note LastModified by Organizat ion Details LastModified Time How many times per week do you consume alcohol? Less than 1 time per week Information not available 09/15/2024 Do you use any illicit or recreational drugs? No Information not available 09/15/2024 Do you or have you ever used any other forms of tobacco or nicotine? No Information not available 09/15/2024 What is your level of alcohol consumption? Occasional Information not available 09/15/2024 Mental Status None recorded. Family History Nothing Reported. Medical History Condition Response Allergies/Hayfever N Coronary Artery Disease N Anxiety/Depression N Breathing or lung disorders N Emphysema N Nerve Disorders N Thyroid Problems N COPD N Pacemaker N Anemia N Kidney/Bladder Problems N Vascular Disease N Heart Trouble N Heart Attack ([place]) N Gastrointestinal Disease N Cholesterol N Diabetes N Autoimmune disease N Bleeding Disorder N Inflammatory Joint disease N Orthotics N Arthritis Y Seizures/Epilepsy N Blood Clot N AIDS/HIV N Congestive Heart Failure (CHF) N Acid Reflux (GERD) N Cancer N Stroke N Asthma N Circulation Problems N Peripheral Vascular Disease N Sleep Apnea Y Hepatitis N Heart Disease N Rheumatoid Arthritis N Arrhythmia N Pulmonary Embolism N Headaches N Fibromyalgia N Hypertension N Osteoporosis N Past Encounters Encounter ID Performer Location Encounter Start Date Encounter Closed Date Diagnosis/Indication Diagnosis SNOMED-CT Code Diagnosis ICD10 Code Diagnosis IMO Codes Diagnosis Note [id number] MD Jaki Jameson [address] [place] [address] 03/28/2024 12:59:51 04/13/2024 17:05:35 Pain of right hand 7557292987 66939 M79.641 Bilateral elbow joint pain 6486562067 6805084 M25.521 Pain of le ft elbow joint 2237639210 4549199 M25.268 [id number] MD [facility] [address] [place] [address] 06/30/2024 09:45:37 07/21/2024 15:38:47 Pain of left shoulder joint 5131446843 5889219 M25.512 [id number] Ronny Mccarthy PA-C [address] [place] [address] 07/23/2024 13:29:05 08/22/2024 13:23:51 Disorder of shoulder 380208696 M25.819 352569 Tendinitis of left biceps brachii [id number] M75.22 [id number] Raphael Rowland PA-C [address] [address] [place] [address] 07/30/2024 00:22:37 08/27/2024 15:27:41 Follow-up status [id number] Z51.89 [id number] Ronny Mccarthy PA-C [facility] [address] [place] [address] 08/08/2024 15:18:24 09/11/2024 07:54:21 Biceps tendinitis [id number] M75.22 [id number] MD Kevon Jameson [facility] [address] [place] [address] 09/01/2024 12:50:25 09/24/2024 07:44:28 Pain of right hand [id number] 79678 M79.641 Pain of le ft elbow joint [id number] M25.522 Neuropathy 381231596 G62 .9 99691 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 [id number] 79955 G56.02 [id number] Left later al elbow tendinopathy [id number] 62873 M77.12 [id number] Bora Aranda MD NIRANJAN - [facility] [address] [place] [address] 09/17/2024 14:34:26 09/29/2024 13:27:28 Bicipital tenosynovitis [id number] M75.22 [id number] KATHARINE Ponce [facility] [address] [place] [address] 10/30/2024 14:00:12 11/07/2024 10:50:50 Pain of left knee joint [id number] 43225 M25.562 201986 Chondromal acia of left patella [id number] 68975 M22.42 [id number] MD NIRANJAN Saldana [facility] [address] [place] [address] 02/09/2025 12:50:30 02/13/2025 11:35:43 Impingement syndrome of left shoulder region [id number] 70914 M75.42 [id number] MD NIRANJAN Luna [facility] [address] [place] [address] 06/26/2025 10:53:00 07/08/2025 14:43:42 Injury of left leg [id number] S76.112A [id number] Health Concerns Section Related Observation LastModified by Organization Detai ls LastModified Time None Recorded Concern Status LastModified by Organization Details LastModified Time None Recorded Advance Directives Directive None Recorded Payers Insurance Date Sequence Insurance Name Policy Number Policy Desouza Covered Member ID Desouza Member ID Guarantor Name 07/08/2025 1 [facility] - DOS ON OR AFTER 2022 - ONE CARE (MEDICARE REPLACEMENT/ADV ANTAGE - HMO) Jose Colvin [id number] Jose Colvin Notes Date Note Type Note Provider Name and Address Organization Details Recorded Time 09/01/2024 text/html ROS as noted in the HPI Patient is a 39-year-old male last seen in March. Here today with left elbow pain and left carpal tunnel syndrome. He is well known to me having undergone bilateral elbow lateral epicondylar debridement with recalcitrant symptoms despite surgical intervention. Most recent treatment was in March, when a left elbow lateral epicondylar injection was performed. He underwent a prior right carpal tunnel release surgery but has not yet had the left side done. Does not currently have a brace for nighttime wear for carpal tunnel for treatment of this lateral epicondylitis. Arlet Royal MD [facility] [address], [place], [address], [facility] - [facility] 09/01/2024 13:21:42 10/30/2024 text/html I am seeing the patient today under the supervision of Dr. Musa who was available but who did not see the patient.HPI: Jose is seen today for evaluation of pain and discomforts developed in their left knee. Patient reports multiyear duration of symptoms worse with stairs squatting kneeling getting a sitting position. Patient reports symptoms are exacerbated with use specifically increasing exercise and demand. Patient denies any recent trauma denies any secondary swelling or mechanical locking catching symptoms. Concerned by this, patient is referred at this time for orthopedic evaluation.Past family, medical, social history and review of systems has been reviewed, updated and signed by me and is located in the patient s chart.PHYSICAL EXAMINATION: The patient is well appearing and in no apparent distress. Alert and oriented x3. Gait is symmetric.Right knee ROM is full, stability intact both anterior, posterior, and varus/valgus stress at both 0 and 30 degrees of flexion. No meniscal tenderness. Negative Rivka's maneuver. No crepitus,no effusion, 5/5 strength.Left knee ROM is full, patella crepitance noted, stability intact both anterior, posterior, and varus/valgus stress at both 0 and 30 degrees of flexion. No meniscal tenderness. Negative Rivka's maneuver. No crepitus,no effusion, 5/5 strength.Peripheral, vascular, lymphatic examination, skin, neurological, coordination, reflexes, sensation are within normal limits.X-RAY REPORT: X-rays were ordered, obtained and reviewed today at [facility]. 3 views bilateral knees demonstrate early arthritic changes, particularly through patellofemoral compartments.IMPRESS ION: Symptomatic chondromalacia patella, left kneePLAN: Lengthy discussion held with patient regarding treatment alternatives pathophysiology associated with anterior knee pain. We talked about the importance of activity modification talked about the benefits of physical therapy for quadriceps Strengthening as well as improvements of neuromuscular balancing. Patient was referred to formal physical therapy for these exercises and recommendations are to follow with our office going forward as symptoms dictate. Morro Johnson PA-C [address] [facility] [address], [place], [address], [facility] 10/30/2024 14:44:22
== END 2025-07-20 13:23 | disposition home or self-care (01) ==
LOC: HO.PMC 13:03
PROVIDERS: PCP Nurse Practitioner Family; Visit Provider Nurse Practitioner Family
DX: M54.2 Cervicalgia (principal); M54.16 Radiculopathy, lumbar region; Z98.1 Arthrodesis status; M96.1 Postlaminectomy syndrome, not elsewhere classified; M54.12 Radiculopathy, cervical region; Z96.89 Presence of other specified functional implants; M47.816 Spondylosis without myelopathy or radiculopathy, lumbar region; M54.50 Low back pain, unspecified
CPT/HCPCS: 99214; G2211

== ENCOUNTER → 2025-07-20 13:35 | Outpatient (BNV) | payer OTHER, SELFPAY | PROVIDERS: PCP Nurse Practitioner Family; Visit Provider Radiology Diagnostic Radiology | DX: M96.1 Postlaminectomy syndrome, not elsewhere classified (principal) | CPT/HCPCS: 72072; 72100 ==

== ENCOUNTER 2025-07-31 13:17 | Outpatient (AMB) | payer OTHER, SELFPAY ==
--- NOTE | 2025-07-31 13:22 | A.OFFVIS_ITS ---
Vital Signs 07/31/25 13:26 Height 5 ft 10 in Weight 255 lb 1.197 oz BMI 36.6 BP 92/64 Blood Pressure Location Rt brachial Position Sitting Pulse 86 Pulse Source Pulse Oximeter Pulse Oximetry (%) 98 Oxygen Delivery Method Room Air Intake Visit Reasons: Type II diabetes Intake Note: Patient present today to follow up on Type 2 Diabetes Mellitus. Last Diabetic Eye exam: Due, 1 year ago Last Podiatry Visit: Does not see a Optical Mechanic Apprentice Random Glucose: 122 mg/dl HgA1C: 5.4% 07/31/2025 Experimental Psychologist Required: No Accompanied by: Self / Same As Patient Allergies doxycycline (DOXYCYCLINE) Allergy (Intermediate, Verified 07/31/25 13:27) Hives, Rash morphine (MORPHINE) Allergy (Intermediate, Verified 07/31/25 13:27) CHEST PAIN Penicillins (PENICILLINS) Allergy (Intermediate, Verified 07/31/25 13:27) HIVES gabapentin Allergy (Mild, Verified 07/31/25 13:27) Rash bee pollen Allergy (Unknown, Verified 07/31/25 13:27) Swelling medical tape Allergy (Unknown, Verified 07/31/25 13:27) Rash naproxen Allergy (Unknown, Verified 07/31/25 13:27) Rash Sulfa (Sulfonamide Antibiotics) Allergy (Unknown, Verified 07/31/25 13:27) Tongue swelling, hives sulfamethoxazole (From Bactrim) Allergy (Unknown, Verified 07/31/25 13:27) Hives trimethoprim (From Bactrim) Allergy (Unknown, Verified 07/31/25 13:27) Hives HPI Comments Details: This is a 40-year-old male with a past medical history of type 2 diabetes, LAM, obesity, severe asthma and chronic back pain presenting for diabetic management. Hemoglobin a1c 11.4% 04/07/2024 at diagnosis. A1c today 5.4%. His uncles, grandmother and father had type II DM. I reviewed his glucometer data. There is not a lot of data, but 100% of readings were in target range. Lowest 95, highest 121 Current medication regimen: Mounjaro 7.5 mg weekly. He thinks weight has plateaued a bit in the last few months so he would like to increase the dose. Past medication: Metformin discontinued because the combination of Mounjaro +metformin caused sour eructation. No hypoglycemia. Compliance issues: none. Eye exam: [facility]. Microvascular complications: none Macrovascular complications: none Hypertension: treated with Lisinopril 2.5 mg daily. Blood pressure is little soft today, but patient says he thinks he may have taken 2 tablets. Blood pressure was 132/78 on 07/20/2025. Hyperlipidemia: treated with Atorvastatin 10 mg. ROS: Respiratory: No shortness of breath Cardiovascular: No chest pain Gastrointestinal: No anorexia, nausea, vomiting or diarrhea. No abdominal pain Neurologic: No headache, dizziness, syncope Skin: No rash or ulcers Endocrine: see HPI Physical exam: Constitutional: Alert, in no distress. Neck: Supple, Full range of motion. No lymphadenopathy. No palpable thyroid masses. Respiratory: Clear to auscultation. Cardiovascular: S1 S2 regular. No murmurs. Feet: Warm and well perfused. No clubbing, cyanosis or edema. Intact DP pulses. Hypertrophic, discolored left great toenail. [facility] Medical History (Updated 07/31/25 @ 14:01 by DAVID Vieyra) Obesity (BMI 35.0-39.9 without comorbidity) Left lateral epicondylitis Controlled type 2 diabetes mellitus Type II diabetes mellitus Nail fungus Neck pain with history of cervical spinal surgery Failed back syndrome RLS (restless legs syndrome) Left carpal tunnel syndrome Medial epicondylitis, left elbow Severe persistent allergic asthma Surgical History History of surgery Hx of carpal tunnel repair Hx of elbow surgery History of back surgery Hx of neck surgery S/P debridement History of inguinal hernia repair History of shoulder surgery Family History Father Diabetes mellitus Substance use disorder Mother No problems noted. Maternal Grandmother CVD (cardiovascular disease) Cancer Brother Labral tear of hip joint Mental health disorder Sister Mental health disorder Son No problems noted. Daughter No problems noted. 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 Current occupational exposures/hazards: No Cognitive needs: No Hearing needs: No Vision needs: No Physical Exam Vital Signs: Last Vital Signs Pulse 86 07/31/25 13:26 BP 92/64 07/31/25 13:26 Pulse Ox 98 07/31/25 13:26 Oxygen Delivery Method Room Air 07/31/25 13:26 BMI result Body Mass Index 36.6 Results AMB Hemoglobin A1c AMB Hemoglobin A1c 5.4 % Last Edit by JENNIFER Livingston on 07/31/25 13:44 Results Reviewed Results Reviewed: Laboratory Last Values Glucose (Clinic) 122 mg/dL (60-115) H 07/31/25 13:33 Laboratory Tests 04/07/24 04/07/24 08/26/24 09:27 09:29 13:56 Creatinine Estimated GFR Hgb A1c (Clinic) 5.7 AST 24 ALT 23 Triglycerides 121 Cholesterol 159 LDL Cholesterol, Calc 94 HDL Cholesterol 41 Vitamin B12 TSH 3.13 Urine Creatinine 153.85 Urine Microalbumin 13.0 Microalb/Creat Ratio 8.4 08/26/24 14:50 Creatinine 1.04 Estimated GFR > 60 Hgb A1c (Clinic) AST ALT Triglycerides Cholesterol LDL Cholesterol, Calc HDL Cholesterol Vitamin B12 318 TSH Urine Creatinine Urine Microalbumin Microalb/Creat Ratio Fib 4 value based on most recent labs in 0.68. Assessment & Plan Assessment & Plan (1) Controlled type 2 diabetes mellitus: Code(s): E11.9 - Type 2 diabetes mellitus without complications Category: Medical (2) Nail fungus: Code(s): B35.1 - Tinea unguium Category: Medical (3) Obesity (BMI 35.0-39.9 without comorbidity): Code(s): E66.9 - Obesity, unspecified Category: Medical Plan In summary this is a 40 year old male with well controlled Type II DM on Mounjaro. Trial increase of Mounjaro 10 mg weekly to support weight loss. Low carbohydrate, low sugar diet, portion control reviewed. Avoid alcohol, soda, juice. Continue to monitor blood glucose and bring glucometer to appointments. Recommended annual eye exam. Referred to Podiatry. Reviewed treatment of hypoglycemia. Follow up in 3 months for diabetes. Patient advised to have lab work completed. Orders: Orders AMB Hemoglobin A1c Today E11.9 - Type 2 diabetes mellitus without complications Referrals Podiatry Referral B35.1 - Tinea unguium Medications: New tirzepatide (Mounjaro) 10 mg (0.5 mL) subcut QWEEK 2 mL 5RF empty container (Needle Collection and Disposal misc) As directed 1 ea 3RF E11.9 - Type 2 diabetes mellitus without complications Discontinued tirzepatide (Mounjaro) Discontinued Reason: Doctor's Order 7.5 mg (0.5 mL) subcut QWEEK 2 mL 0RF Coding Level of Care Code Est Pt Level 4 (78732) Diagnoses Controlled type 2 diabetes mellitus E11.9 Nail fungus B35.1 Obesity (BMI 35.0-39.9 without comorbidity) E66.9
[2025-07-31 13:26] VITALS: BP 92/64; PULSE 86; O2SAT 98; BMI 36.6
--- OUTSIDE RECORDS SUMMARY | 2025-07-31 13:34 | XMS_ITS | Data Portability ---
Author Organization [facility] Sammy Montgomery [facility] Surgeons [facility], [facility] Address [address] [place] [address] Care Team Providers Care Cruise Coordinator Name Role Phone BORA MANNING Primary [...] Medication Prescriptions: [none given] Plan/Follow up:6 weeks [facility] speech recognition finished cloth checker software was used to create portions of [...] and restrictions, follow up with me porestes [facility] speech recognition finished cloth checker software was used to create portions of [...] month ago while playing baseball at a [employer] outing. Two days ago, he experienced an [...] grossly intact. Eyes: Sclera are not blue. ip paralegal II-XII are grossly intact. Full extraocular motion. [...] Imaging: X-rays ordered, obtained and reviewed at [facility]. These images included 4 views of the [...] visit note. This note was generated with [facility] speech recognition finished cloth checker dictation software. Please excuse any errors that may have been overlooked during review of this note. Sometimes, these errors may affect the content or meaning of a given sentence. Please call for corrections. [email or web address] Not available 06/26/2025 12:47:35 Plan of Treatment [...] [facility], [address], [address], [place], [address], 12:39:01 XR, knee, 3 view - 3v L knee. room 3 2024 025 norma [email or web address] [facility] Office, [address] [facility], [facility] [address], [place], [address], 14:48:58 Medication Orders None recorded. Patient TargetsNo [...] a4ajBk vP9nXo QUaueC m3YtLR FvZlgJ JJ8mAn HZtai3 1e5414 AC0Kqb XyNVqC jKiQtr MwF INTERFACE [facility] [address] [facility] [address], [place], [address], 10/30/2024 14:25:24 10/30/19 25 10/30/2024 XR, knee, 3 view http:/ [email or web address] ?Encry pted=s hAaTro YD8dLq bEUv6g %2BXZw aYqtaq 0bqfl% 2Fg9IQ a4ajBk vP9nXo QUaueC m3YtLR FvZlgJ JJ8mAn HZtai3 9y1794 AC0Kqb XyNVqC jKiQtr MwF INTERFACE [facility] [address] [facility] [address], [place], [address], 10/30/2024 14:25:26 06/26/20 25 06/26/2025 XR, hip + pelvi s, unila teral , 2 or 3 view http:/ [email or web address] ?Encry pted=s hAaTro YD8dLq bEUv6g %2BXZw aYqtaq 0bqfl% 2Fg9IQ a4ajBk vP9nXo QUaueC m3YtLR FvZlgJ JJ8mAn HZtai3 1o5332 AC0KlY n2BUqC iKiQtr MwF INTERFACE [facility] Office [address] [facility] [address], [place], [address], 06/26/2025 11:31:40 06/26/2006/26/2025 XR, hip + pelvi s, unila teral , 2 or 3 view http:/ [email or web address] ?Encry pted=s hAaTro YD8dLq bEUv6g %2BXZw aYqtaq 0bqfl% 2Fg9IQ a4ajBk vP9nXo QUaueC m3YtLR FvZlgJ JJ8mAn HZtai3 7y1238 AC0KlY n2BUqC iKiQtr MwF INTERFACE [facility] Office [address] [facility] [address], [place], [address], 06/26/2025 11:31:42 Result Notes Documentation Provider Name and Address Organization Details Recorded Time Xr, Knee, 3 View : [email or web address] Encrypted=auXhZkiDQ2kSqpI Uv6g%5VXKprBuhmb7nvie%2Fg 5VCt9tvEvsF3jLdELruwRy4Wp LYPtEgyQUZ1tPtKMbcs60p792 6TR6XbhVhMWaGoTrUtdIcE Not Available [facility] 10/30/2024 14:25: 25 Xr, Knee, 3 View : [email or web address]? Encrypted=xnMwGhaPC8lNeaP Uv6g%9TBWieCgcex5jseu%2Fg 6XOg9yyJsdO0dMhJSsfhZu8Xz VNFqQohOWN0oFrQBwij55g733 2KK7MdkHoRTfSdTvYenSaI Not Available [facility] 10/30/2024 14:25: 27 Xr, Hip + Pelvis, Unilateral, 2 Or 3 View : [email or web address]? Encrypted=qdEtXtxJY2bDowB Uv6g%0EUFnlQbpty7yvxd%2Fg 2UVu9guJmiZ9bFpGKplsRf4Eu YZAnQafGZU0cAgQBpqy39v848 1CT5OaWv7JXlYaXtOftFdT Not Available [facility] 06/26/2025 11:31: 40 Xr, Hip + Pelvis, Unilateral, 2 Or 3 View : [email or web address] Encrypted=zvWvVtqYB3qFecU Uv6g%5FMJeqGwogw0bxll%2Fg 0WTc8mwFuxZ3eCnOOjlhXo5Uz JRSqAawHAQ7nDzGZaap56q379 6PS6MxFx1YNsOpMoOqwPvV Not Available [facility] 06/26/2025 11:31: 42 Problems Name Problem SNOMED Code Status Onset Date Resolution Date Notes Provider Name and Address Organization Details Recorded Time Degeneration of cervical intervertebr al disc 45679674 Active 2014 Problem Code: M50.30; Problem Code Type: ICD-10; Status: 'A'; Not Available [facility] 4 11:28:42 Problem Notes None recorded. Procedures Surgical History Date Name Laterality Status Provider Name and Address Organization Details Recorded Time 4 Elbow Kenalog 1cc Injection, L/R completed Arlet Royal MD [address] [place] [address] [address], [place], [address], [facility] 03/28/2024 13:49:56 3 operation on neck completed MAHAMED RETANA [facility] 06/30/2024 10:16:04 1 excision of distal clavicle completed MAHAMED RETANA [facility] 06/30/2024 10:16:44 Imaging Results None recorded. Procedure Notes None recorded. Medical Equipment None Reported. Allergies Allergen ID Allergen Name Allergen Category Reaction Reaction Severity Criticality Documentation Date Start Date Code Code System Note Provider Name and Address Organization Details Recorded Time 917711 nut - unspecifi ed food Not available Not available Not available 07/23/2024 NENAMIKHAIL ANDRADESAMARIA zaragoza [facility] 4 13:32:26 40797 morphine sulfate medicatio n Not available Not available Not available 11/12/20232015 12447 RxNorm Aller gyRea ction : 'Skin React ion'; Not Available [facility] 4 12:57:37 67749 gabapenti n medicatio n Not available Not available Not available 11/12/20232018 76111 RxNorm Not Available [facility] 4 12:57:37 35778 hazelnut allergeni c extract food Not available Not available Not available 11/12/20232014 65944 3 RxNorm Amarilys Greene mila [facility] 4 10:37:11 20930 adhesive tape environme nt,medica tion Not available Not available Not available 11/12/20232015 Not Available [facility] 4 12:57:37 56555 Product containin g penicilli n (product) medicatio n Not available Not available Not available 11/12/20232015 83647 8001 SNOMED Not Available [facility] 4 12:57:38 Medications Name Sig Start Date [...] Not Available No t Available Jonny Borges [facility] spacer USE 1 DEVICE ONLY ONCE [...] Updated DateTime 09/17/2024 175.26 cm 39.3 kg/m2 766942.57 g MARTÍN COSBY [facility] 09/17/2024 14:51:29 Date Recorded Body height Body mass index (BMI) Body weight Provider Name and Address Organization Details Last Updated DateTime 10/30/2024 175.26 cm 39.3 kg/m2 962793.57 g Samia Pichardo [facility] 10/30/2024 14:13:32 Date Recorded Body height Body mass index (BMI) Body weight Provider Name and Address Organization Details Last Updated DateTime 02/09/2025 175.26 cm 38.1 kg/m2 964749.83 g MAHAMED RETANA [facility] 02/09/2025 13:20:45 Date Recorded Body height Body mass index (BMI) Body weight Provider Name and Address Organization Details Last Updated DateTime 06/26/2025 177.8 cm 37.3 kg/m2 713165.02 g NOEMI COX [facility] 06/29/2025 08:52:28 Date Recorded Body height Body mass index (BMI) Body weight Provider Name and Address Organization Details Last Updated DateTime 09/01/2024 175.26 cm 39.3 kg/m2 157044.57 g Radha Collier [facility] 09/01/2024 12:58:15 Social History Question Answer Notes LastModified by Organizat ion Details LastModified Time Tobacco Smoking Status Never Smoker MARTÍN zaragoza [place] - [facility] 09/15/2024 11:21:48 Have You [...] Response Allergies/Hayfever N Coronary Artery Disease N Breathing or lung disorders N Anxiety/Depression N Emphysema N Nerve Disorders N Thyroid Problems N COPD N Pacemaker N Anemia N Kidney/Bladder Problems N Vascular Disease N Heart Trouble N Heart Attack ([place]) N Gastrointestinal Disease N Cholesterol N Diabetes [...] ICD10 Code Diagnosis IMO Codes Diagnosis Note [id number] MD Jaki Jameson [address] [place] [address] 03/28/2024 12:59:51 04/13/2024 17:05:35 Pain of right hand 7330359661 98670 M79.641 Bilateral elbow joint pain 2272077441 8158882 M25.521 Pain of le ft elbow joint 6982557401 8033765 M25.166 [id number] MD Kevon Saldana Clinical [address] [place] [address] 06/30/2024 09:45:37 07/21/2024 15:38:47 Pain of left shoulder joint 0362347107 6810755 M25.512 197932 [id number] Ronny Mccarthy PA-C [address] [place] [address] 07/23/2024 13:29:05 08/22/2024 13:23:51 Disorder of shoulder 047378280 M25.819 298213 Tendinitis of left biceps brachii 5418124004 7105 M75.22 84892877 [id number] Raphael Rowland PA-C [address] [place] [address] 07/30/2024 00:22:37 08/27/2024 15:27:41 Follow-up status 705257327 Z51.89 83184 [id number] Ronny Mccarthy PA-C [address] [place] [address] 08/08/2024 15:18:24 09/11/2024 07:54:21 Biceps tendinitis 606648418 M75.22 3972557 [id number] MD Kevon Jameson [facility] [address] [place] [address] 09/01/2024 12:50:25 09/24/2024 07:44:28 Pain of right hand 7515087344 23794 M79.641 Pain of le ft elbow joint 6420855952 1450150 M25.522 Neuropathy 437922226 G62 .9 36942 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 2055178854 21566 G56.02 1212323 Left later al elbow tendinopathy 5110278720 91290 M77.12 [id number] [id number] Bora Aranda MD NIRANJAN - [address] [place] [address] 09/17/2024 14:34:26 09/29/2024 13:27:28 Bicipital tenosynovitis 53765962 M75.22 65302604 [id number] KATHARINE Ponce Clinical [address] [place] [address] 10/30/2024 14:00:12 11/07/2024 10:50:50 Pain of left knee joint 6203709113 36131 M25.562 711953 Chondromal acia of left patella 7538134504 53314 M22.42 810005 [id number] MD NIRANJAN Sald[facility] [address] [place] [address] 02/09/2025 12:50:30 02/13/2025 11:35:43 Impingement syndrome of left shoulder region 6887496103 70719 M75.42 39303538 [id number] MD NIRANJAN Luna [address] [place] [address] 06/26/2025 10:53:00 07/08/2025 14:43:42 Injury of left leg 5267145891 1303697 S76.112A [id number] Health Concerns Section Related Observation LastModified by Organization Detai ls LastModified Time None Recorded Concern Status LastModified by Organization Details LastModified Time None Recorded Advance Directives Directive None Recorded Payers Insurance Date Sequence Insurance Name Policy Number Policy Desouza Covered Member ID Desouza Member ID Guarantor Name 07/08/2025 1 [facility] AFTER 2022 - ONE CARE (MEDICARE REPLACEMENT/ADV ANTAGE - HMO) Jose Colvin [id number] Jose Colvin Notes Date Note Type Note [...] of this lateral epicondylitis. Arlet Royal MD [facility] [address], [place], [address], [facility] 09/01/2024 13:21:42 10/30/2024 text/html [...] were ordered, obtained and reviewed today at [facility]. 3 views bilateral knees demonstrate early arthritic [...] as symptoms dictate. Morro Johnson PA-C [address] [facility] [address], [place], [address], [facility] [place] [facility] 10/30/2024 14:44:22
--- OUTSIDE RECORDS SUMMARY | 2025-07-31 13:34 | XMS_ITS | Continuity of Care Document ---
Author Organization [place] - [facility] Surgeons [facility], NIRANJAN Connerlizzeth 2[address] floor Address [address] [place] [address] Care Team Providers Care Instructional Resource Teacher Name Role Phone BORA MANNING Primary Care Provider Assessment Encounter Date Assessment Date Assessment LastModified by Organization Details LastModified Time 06/26/2025 06/26/2025 Chief Complaint: Left quadriceps muscle tear, possible proximal rectus femoris avulsion HPI: 40-year-old male presents with left quadriceps pain and weakness. Patient reports initial injury occurred approximately one month ago while playing baseball at a [employer] outing. Two days ago, he experienced an [...] grossly intact. Eyes: Sclera are not blue. sole rounder II-XII are grossly intact. Full extraocular motion. [...] Imaging: X-rays ordered, obtained and reviewed at [facility]. These images included 4 views of the [...] visit note. This note was generated with [facility] speech recognition and taxi instructor bus trolley dictation software. Please excuse any errors that may have been overlooked during review of this note. Sometimes, these errors may affect the content or meaning of a given sentence. Please call for corrections. [email or web address] Not available 06/26/2025 12:47:35 Plan of Treatment Reminders Order Date Submit Date Provider Last Modified By Organization Details Last Modified Time Details Appointments None recorded. Lab None recorded. Referral physical therapist referral - Stretching, eccentric strengtheni ng, ROM, modalities as tolerated. 2024 025 [email or web address] 5 Not available 12:39:01 Procedures None recorded. Surgeries None recorded. Imaging XR, femur, 1 view - rm 218 lt femur 2024 025 [email or web address] 5 [facility] Office, [address] [facility], [facility] [address], [place], [address], 12:39:01 Medication Orders None recorded. Patient TargetsNo targets recorded. Patient InstructionsNo instructions recorded. Reason for Referral Physical Therapist Referral for Injury of left leg Stretching, eccentric strengthening, ROM, modalities as tolerated. Referring Physician: Paco Ramirez, Orthopedic Surgery, Encounter Date: 06/26/2025 Results Created Date Observation Date Name Description Value Unit Range Abnormal Flag Note LastModifiedBy Organization Detail LastModifiedTime 06/26/2006/26/2025 XR, hip + pelvi s, unila teral , 2 or 3 view http:/ [email or web address] ?Encry pted=s hAaTro YD8dLq bEUv6g %2BXZw aYqtaq 0bqfl% 2Fg9IQ a4ajBk vP9nXo QUaueC m3YtLR FvZlgJ JJ8mAn HZtai3 2f8944 AC0KlY n2BUqC iKiQtr MwF INTERFACE [facility] Office [address], [place], [address], 06/26/2025 11:31:40 06/26/20 25 06/26/2025 XR, hip + pelvi s, unila teral , 2 or 3 view http:/ [email or web address] ?Encry pted=s hAaTro YD8dLq bEUv6g %2BXZw aYqtaq 0bqfl% 2Fg9IQ a4ajBk vP9nXo QUaueC m3YtLR FvZlgJ JJ8mAn HZtai3 0r4316 AC0KlY n2BUqC iKiQtr MwF INTERFACE [facility] [address] [facility] [address], [place], [address], 06/26/2025 11:31:42 Result Notes Documentation Provider Name and Address Organization Details Recorded Time Xr, Hip + Pelvis, Unilateral, 2 Or 3 View : [email or web address] Encrypted=fgIiTdbQV2aNnlX Uv6g%9XYAirQtnee5nurw%2Fg 0SRe3ieDhpJ3sFwFLvdnCf5Al QHWjLtrNGJ4rOeLDwsb21f293 1MI1GgAn6NOrXuUqSclZaC Not Available [facility] 06/26/2025 11:31: 40 Xr, Hip + Pelvis, Unilateral, 2 Or 3 View : [email or web address] Encrypted=xzPoGbuID5aPhgZ Uv6g%8TVCfgAuhya0eqpe%2Fg 2SUl9adMevW8zWqEXnzeVi9Id PNChDluZDI5cCeUAkqa83g746 2CQ5EuBu3IHhGuEfFsvZuO Not Available [facility] 06/26/2025 11:31: 42 Problems Name Problem SNOMED Code Status Onset Date Resolution Date Notes Provider Name and Address Organization Details Recorded Time Degeneration of cervical intervertebr al disc 51557874 Active 2014 Problem Code: M50.30; Problem Code Type: ICD-10; Status: 'A'; Not Available [facility] 4 11:28:42 Problem Notes None recorded. Procedures Surgical History Date Name Laterality Status Provider Name and Address Organization Details Recorded Time 4 Elbow Kenalog 1cc Injection, L/R completed Arlet Royal MD [address] [place] [address] [address], [place], [address], [facility] 03/28/2024 13:49:56 3 operation on neck completed [facility] 06/30/2024 10:16:04 1 excision of distal clavicle completed [facility] 06/30/2024 10:16:44 Imaging Results None recorded. Procedure Notes None recorded. Medical Equipment None Reported. Allergies Allergen ID Allergen Name Allergen Category Reaction Reaction Severity Criticality Documentation Date Start Date Code Code System Note Provider Name and Address Organization Details Recorded Time 845249 nut - unspecifi ed food Not available Not available Not available 07/23/2024 NENA DOWELL [facility] 4 13:32:26 01410 morphine sulfate medicatio n Not available Not available Not available 11/12/20232015 49502 RxNorm Aller gyRea ction : 'Skin React ion'; Not Available [facility] 4 12:57:37 81688 gabapenti n medicatio n Not available Not available Not available 11/12/20232018 21586 RxNorm Not Available [facility] 4 12:57:37 71027 hazelnut allergeni c extract food Not available Not available Not available 11/12/20232014 04653 3 RxNorm Amarilys zaragoza [facility] 4 10:37:11 19168 adhesive tape environme nt,medica tion Not available Not available Not available 11/12/20232015 Not Available [facility] 4 12:57:37 33808 Product containin g penicilli n (product) medicatio n Not available Not available Not available 11/12/20232015 77247 8001 SNOMED Not Available [facility] 4 12:57:38 Medications Name Sig Start Date [...] Not Available Not Available No t Available [facility] spacer USE 1 DEVICE ONLY ONCE FOR [...] Updated DateTime 06/26/2025 177.8 cm 37.3 kg/m2 896266.02 g NOEMI COX [place] [facility] [place] [facility] 06/29/2025 08:52:28 Social History Question Answer Notes LastModified by Organizat ion Details LastModified Time Tobacco Smoking Status Never Smoker MARTÍN zaragoza [place] - [facility] 09/15/2024 11:21:48 Have You [...] Disease N Heart Trouble N Heart Attack ([place]) N Gastrointestinal Disease N Cholesterol N Diabetes [...] ICD10 Code Diagnosis IMO Codes Diagnosis Note [id number] [facility] [address] [facility] [place] [address] 06/26/2025 10:53:00 07/08/2025 14:43:42 Injury of left leg 5754441526 5935212 S76.112A [id number] Health Concerns Section Related Observation LastModified by Organization Detai ls LastModified Time None Recorded Concern Status LastModified by Organization Details LastModified Time None Recorded Payers Encounter Date Sequence Insurance Name Policy Number Policy Desouza Covered Member ID Desouza Member ID Guarantor Name 06/26/2025 1 [facility] - DOS ON OR AFTER 2022 - ONE CARE (MEDICARE REPLACEMENT/ADV ANTAGE - HMO) Jose Colvin [id number] Jose Colvin
--- OUTSIDE RECORDS SUMMARY | 2025-07-31 13:34 | XMS_ITS | Clinical Summary ---
Author Organization [facility] ity Address [address] [place] [address] Care Team Providers Care Bilingual Speech Therapist Name Role Phone Miky Suggs Primary Care Provider [phone] Social History Tobacco Use Types Packs/Day Years [...] series) 2013 Depression Screening 09/10/2024 COVID-19 Vaccine (1 - 2024-2 6 season) 2025 Influenza Vaccine (#1) 2025 07/31/2013 [...] age to complete this topic Care Teams Bilingual Speech Therapist Relationship Specialty Start Date End Date Miky Suggs DO [address] [place] [address] PCP - General Orthopedic Surgery 01/05/16
[2025-07-31 13:39] LABS: Glucose, Whole Blood 122 mg/dL (60-115)
== END 2025-07-31 13:54 | disposition home or self-care (01) ==
LOC: HO.ENCR 13:18
PROVIDERS: PCP Nurse Practitioner Family; Visit Provider Physician Assistant Medical
DX: E11.9 Type 2 diabetes mellitus without complications (principal); B35.1 Tinea unguium; E66.9 Obesity, unspecified

== ENCOUNTER → 2025-07-31 13:17 | Outpatient (BNVA) | payer OTHER, SELFPAY | PROVIDERS: PCP Nurse Practitioner Family; Visit Provider Physician Assistant Medical | DX: E11.9 Type 2 diabetes mellitus without complications (principal); B35.1 Tinea unguium; E66.9 Obesity, unspecified; Z79.85 Long-term (current) use of injectable non-insulin antidiabetic drugs | CPT/HCPCS: 82947; 83036; 99212 ==

== ENCOUNTER 2025-08-07 09:49 | Outpatient (REF) | payer OTHER, SELFPAY ==
--- OUTSIDE RECORDS SUMMARY | 2025-08-07 09:52 | XMS_ITS | Data Portability ---
Author Organization [facility] Sammy Montgomery [facility] Surgeons [facility], [facility] Address [address] [place] [address] Care Team Providers Care Quality Assurance Manager Name Role Phone BORA MANNING Primary Care Provider [phone] Assessment Encounter Date Assessment Date Assessment LastModified [...] Medication Prescriptions: [none given] Plan/Follow up:6 weeks [facility] speech recognition mortar carrier software was used to create portions of [...] and restrictions, follow up with me porestes [facility] speech recognition mortar carrier software was used to create portions of [...] month ago while playing baseball at a [employer] outing. Two days ago, he experienced an [...] grossly intact. Eyes: Sclera are not blue. 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 Full extraocular [...] Imaging: X-rays ordered, obtained and reviewed at [facility]. These images included 4 views of [...] visit note. This note was generated with [facility] speech recognition mortar carrier dictation software. Please excuse any errors that may have been overlooked during review of this note. Sometimes, these errors may affect the content or meaning of a given sentence. Please call for corrections. [email or web address] Not available 06/26/2025 12:47:35 Plan of Treatment [...] [facility], [address], [address], [place], [address], 12:39:01 XR, knee, 3 view - 3v L knee. room 3 2024 025 [email or web address] [facility], [address] [facility], [facility] [address], [place], [address], 14:48:58 Medication Orders None recorded. Patient TargetsNo targets recorded. Patient InstructionsNo instructions recorded. Reason for Referral Physical Therapist Referral for Injury of left leg Stretching, eccentric strengthening, ROM, modalities as tolerated. Referring Physician: Paco Ramierz, Orthopedic Surgery, Encounter Date: 06/26/2025 Results Created Date Observation Date Name Description Value Unit Range Abnormal Flag Note LastModifiedBy Organization Detail LastModifiedTime 10/30/1910/30/2024 XR, knee, 3 view http:/ [email or web address] ?Encry pted=s hAaTro YD8dLq bEUv6g %2BXZw aYqtaq 0bqfl% 2Fg9IQ a4ajBk vP9nXo QUaueC m3YtLR FvZlgJ JJ8mAn HZtai3 0s5533 AC0Kqb XyNVqC jKiQtr MwF INTERFACE [facility] [address] [facility] [address], [place], [address], 10/30/2024 14:25:24 10/30/19 25 10/30/2024 XR, knee, 3 view http:/ [email or web address] ?Encry pted=s hAaTro YD8dLq bEUv6g %2BXZw aYqtaq 0bqfl% 2Fg9IQ a4ajBk vP9nXo QUaueC m3YtLR FvZlgJ JJ8mAn HZtai3 2q2957 AC0Kqb XyNVqC jKiQtr MwF INTERFACE [facility] [address] [facility] [address], [place], [address], 10/30/2024 14:25:26 06/26/20 25 06/26/2025 XR, hip + pelvi s, unila teral , 2 or 3 view http:/ [email or web address] ?Encry pted=s hAaTro YD8dLq bEUv6g %2BXZw aYqtaq 0bqfl% 2Fg9IQ a4ajBk vP9nXo QUaueC m3YtLR FvZlgJ JJ8mAn HZtai3 1a0256 AC0KlY n2BUqC iKiQtr MwF INTERFACE [facility] Office [address] [facility] [address], [place], [address], 06/26/2025 11:31:40 06/26/2006/26/2025 XR, hip + pelvi s, unila teral , 2 or 3 view http:/ [email or web address] ?Encry pted=s hAaTro YD8dLq bEUv6g %2BXZw aYqtaq 0bqfl% 2Fg9IQ a4ajBk vP9nXo QUaueC m3YtLR FvZlgJ JJ8mAn HZtai3 0f6185 AC0KlY n2BUqC iKiQtr MwF INTERFACE [facility] [address] [facility] [address], [place], [address], 06/26/2025 11:31:42 Result Notes Documentation Provider Name and Address Organization Details Recorded Time Xr, Knee, 3 View : [email or web address]? Encrypted=ucUaHzqVR8kAioI Uv6g%9LINovXnlkp9uqxs%2Fg 8CFc0nwQciC6rPzTQvyeEh7Vh HYTzMzyGSS6iItJCwsk76e674 7RW3HsiBqHUjWmWiQohYnN Not Available [facility] 10/30/2024 14:25: 25 Xr, Knee, 3 View : [email or web address]? Encrypted=htUkLvcWP5aFhsI Uv6g%8VJCbwVmlka5aowd%2Fg 6ZQc3uhZclX4yGwZEtttGt5Tx EPNvYgwFYA8oTrPPyxz71u470 6JW7WnvPnWHpClQrFsmGrI Not Available [facility] 10/30/2024 14:25: 27 Xr, Hip + Pelvis, Unilateral, 2 Or 3 View : [email or web address] Encrypted=ykMhTslMC3aYclD Uv6g%9YPOywKxgtz0bkyu%2Fg 7WKx0yjVavN9pDeBLrmnCq7Ug ETFsOuwUTY6vYtCUqgg64v473 7VE4MiVe7NPgFqZjXxgLmZ Not Available [facility] 06/26/2025 11:31: 40 Xr, Hip + Pelvis, Unilateral, 2 Or 3 View : [email or web address]? Encrypted=bsAdNibLC7aNecB Uv6g%6GZWehUolxe1bbmf%2Fg 5HFy5dyJfzC7eIsMDrfuJk2Pf XQKiOphOKZ9yXiERjdw05d589 9JU6CfCi9TReKqHiYaeYhZ Not Available [facility] 06/26/2025 11:31: 42 Problems Name Problem SNOMED Code Status Onset Date Resolution Date Notes Provider Name and Address Organization Details Recorded Time Degeneration of cervical intervertebr al disc 93876855 Active 2014 Problem Code: M50.30; Problem Code Type: ICD-10; Status: 'A'; Not Available [facility] 4 11:28:42 Problem Notes None recorded. Procedures Surgical History Date Name Laterality Status Provider Name and Address Organization Details Recorded Time 4 Elbow Kenalog 1cc Injection, L/R completed Arlet Royal MD [address] [place] [address] [address], [place], [address], [facility] 03/28/2024 13:49:56 3 operation on neck completed MAHAMED RETANA [place] [facility] 06/30/2024 10:16:04 1 excision of distal clavicle completed MAHAMED RETANA [facility] 06/30/2024 10:16:44 Imaging Results None recorded. Procedure Notes None recorded. Medical Equipment None Reported. Allergies Allergen ID Allergen Name Allergen Category Reaction Reaction Severity Criticality Documentation Date Start Date Code Code System Note Provider Name and Address Organization Details Recorded Time 482014 nut - unspecifi ed food Not available Not available Not available 07/23/2024 NENAMIKHAIL ANDRADESAMARIA zaragoza [facility] 4 13:32:26 83210 morphine sulfate medicatio n Not available Not available Not available 11/12/20232015 51093 RxNorm Aller gyRea ction : 'Skin React ion'; Not Available [facility] 4 12:57:37 20597 gabapenti n medicatio n Not available Not available Not available 11/12/20232018 76307 RxNorm Not Available [facility] 4 12:57:37 42135 hazelnut allergeni c extract food Not available Not available Not available 11/12/20232014 00645 3 RxNorm Amarilys Greene mila [facility] 4 10:37:11 75217 adhesive tape environme nt,medica tion Not available Not available Not available 11/12/20232015 Not Available [facility] 4 12:57:37 44795 Product containin g penicilli n (product) medicatio n Not available Not available Not available 11/12/20232015 13011 8001 SNOMED Not Available [facility] 4 12:57:38 Medications Name Sig Start Date [...] Not Available No t Available Jonny Borges [facility] spacer USE 1 DEVICE ONLY ONCE FOR [...] Updated DateTime 09/17/2024 175.26 cm 39.3 kg/m2 156224.57 g MARTÍN COSBY [facility] 09/17/2024 14:51:29 Date Recorded Body height Body mass index (BMI) Body weight Provider Name and Address Organization Details Last Updated DateTime 10/30/2024 175.26 cm 39.3 kg/m2 161938.57 g Samia Pichardo [facility] 10/30/2024 14:13:32 Date Recorded Body height Body mass index (BMI) Body weight Provider Name and Address Organization Details Last Updated DateTime 02/09/2025 175.26 cm 38.1 kg/m2 644351.83 g MAHAMED RETANA [facility] 02/09/2025 13:20:45 Date Recorded Body height Body mass index (BMI) Body weight Provider Name and Address Organization Details Last Updated DateTime 06/26/2025 177.8 cm 37.3 kg/m2 505193.02 g NOEMI COX [facility] 06/29/2025 08:52:28 Date Recorded Body height Body mass index (BMI) Body weight Provider Name and Address Organization Details Last Updated DateTime 09/01/2024 175.26 cm 39.3 kg/m2 437897.57 g Radha Collier [facility] 09/01/2024 12:58:15 Social History Question Answer Notes LastModified by Organizat ion Details LastModified Time Tobacco Smoking Status Never Smoker MARTÍN zaragoza [place] - [facility] 09/15/2024 11:21:48 Have You [...] Disease N Heart Trouble N Heart Attack ([place]) N Gastrointestinal Disease N Cholesterol N Diabetes [...] ICD10 Code Diagnosis IMO Codes Diagnosis Note [id number] MD Jaki Jameson [address] [place] [address] 03/28/2024 12:59:51 04/13/2024 17:05:35 Pain of right hand 0600987977 53621 M79.641 Bilateral elbow joint pain 2928627878 6822195 M25.521 Pain of le ft elbow joint 9552038938 7029405 M25.615 [id number] MD Kevon [facility] [address] [place] [address] 06/30/2024 09:45:37 07/21/2024 15:38:47 Pain of left shoulder joint 1224022261 5535949 M25.512 654999 [id number] Ronny Mccarthy PA-C [facility] [address] [place] [address] 07/23/2024 13:29:05 08/22/2024 13:23:51 Disorder of shoulder 097087691 M25.819 509878 Tendinitis of left biceps brachii 7326162854 7105 M75.22 90379846 [id number] Raphael Rowland PA-C [address] [address] [place] [address] 07/30/2024 00:22:37 08/27/2024 15:27:41 Follow-up status 275820014 Z51.89 78398 [id number] Ronny Mccarthy PA-C [facility] [address] [place] [address] 08/08/2024 15:18:24 09/11/2024 07:54:21 Biceps tendinitis 767937340 M75.22 8964593 [id number] MD Kevon [facility] [address] [place] [address] 09/01/2024 12:50:25 09/24/2024 07:44:28 Pain of right hand 2788408925 20684 M79.641 Pain of le ft elbow joint 0532273314 2769456 M25.522 Neuropathy 377462260 G62 .9 07845 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 4953390601 91996 G56.02 2399314 Left later al elbow tendinopathy 8340994500 96466 M77.12 [id number] Bora Aranda MD NIRANJAN - [facility] [address] [place] [address] 09/17/2024 14:34:26 09/29/2024 13:27:28 Bicipital tenosynovitis 63679236 M75.22 [id number] KATHARINE Ponce Clinical [address] [place] [address] 10/30/2024 14:00:12 11/07/2024 10:50:50 Pain of left knee joint 9168274956 06327 M25.562 286143 Chondromal acia of left patella 6961082419 54979 M22.42 [id number] MD NIRANJAN [facility] [address] [place] [address] 02/09/2025 12:50:30 02/13/2025 11:35:43 Impingement syndrome of left shoulder region 1220567974 67804 M75.42 51903373 [id number] MD NIRANJAN Luna [facility] [place] [address] 06/26/2025 10:53:00 07/08/2025 14:43:42 Injury of left leg 2230830065 9331489 S76.112A [id number] Health Concerns Section Related Observation LastModified by Organization Detai ls LastModified Time None Recorded Concern Status LastModified by Organization Details LastModified Time None Recorded Advance Directives Directive None Recorded Payers Insurance Date Sequence Insurance Name Policy Number Policy Desouza Covered Member ID Desouza Member ID Guarantor Name 07/08/2025 1 [facility] - DOS ON OR AFTER 2022 - ONE CARE (MEDICARE REPLACEMENT/ADV ANTAGE - HMO) Jose Colvin [id number] Jose Colvin Notes Date Note Type Note [...] of this lateral epicondylitis. Arlet Royal MD [facility] [address], [place], [address], [facility] 09/01/2024 13:21:42 10/30/2024 text/html [...] were ordered, obtained and reviewed today at [facility]. 3 views bilateral knees demonstrate early arthritic [...] as symptoms dictate. Morro Johnson PA-C [address] [facility] [address], [place], [address], [facility] - [facility] 10/30/2024 14:44:22
--- OUTSIDE RECORDS SUMMARY | 2025-08-07 09:52 | XMS_ITS | Clinical Summary ---
Author Organization [facility] ity Address [address] [place] [address] Care Team Providers Care Exhibition Carver Name Role Phone Miky Suggs Primary Care Provider [phone] Social History Tobacco Use Types Packs/Day Years [...] age to complete this topic Care Teams Exhibition Carver Relationship Specialty Start Date End Date Miky Suggs DO [address] [place] [phone] PCP - General Orthopedic Surgery 01/05/16
[2025-08-07 12:46] LABS: Platelet Count 291 X10*3/uL (160-400)
[2025-08-07 12:55] LABS: Alanine Aminotransferase 29 U/L (0-40); Aspartate Amino Transferase 49 U/L (5-37); Cholesterol 144 mg/dL (<200); Estimated Glomerular Filt Rate > 60; HDL Cholesterol 35 mg/dL (>40); Triglycerides 128 mg/dL (<150)
[2025-08-07 13:07] LABS: Microalbum/Creatinine Ratio Ur 3.7 ug/mg cr (<30)
== END 2025-08-07 09:50 | disposition home or self-care (01) ==
LOC: HO.HMGCLDS 09:49
PROVIDERS: PCP Nurse Practitioner Family; Visit Provider Physician Assistant Medical
DX: E11.9 Type 2 diabetes mellitus without complications (principal); R79.89 Other specified abnormal findings of blood chemistry; E78.5 Hyperlipidemia, unspecified
CPT/HCPCS: 36415; 80061; 82043; 82565; 82570; 83036; 84450; 84460; 85049

== ENCOUNTER 2025-08-31 06:39 | Outpatient (AMB) | payer OTHER, SELFPAY ==
--- OUTSIDE RECORDS SUMMARY | 2025-08-31 06:43 | XMS_ITS | Continuity of Care Document ---
Author Organization [place] - [facility], NIRANJAN Connerlizzeth 2nd floor Address [address] [place] [address] Care Team Providers Care Sql Tech Name Role Phone BORA MANNING Primary Care Provider Assessment Encounter Date Assessment Date Assessment LastModified by Organization Details LastModified Time 06/26/2025 06/26/2025 Chief Complaint: Left quadriceps muscle tear, possible proximal rectus femoris avulsion HPI: 40-year-old male presents with left quadriceps pain and weakness. Patient reports initial injury occurred approximately one month ago while playing baseball at a [employer] outing. Two days ago, he experienced an [...] grossly intact. Eyes: Sclera are not blue. 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 Full extraocular motion. [...] Imaging: X-rays ordered, obtained and reviewed at [facility]. These images included 4 views [...] visit note. This note was generated with [facility] speech recognition terrazzo polisher helper dictation software. Please excuse any errors that may have been overlooked during review of this note. Sometimes, these errors may affect the content or meaning of a given sentence. Please call for corrections. [email or web address] Not available 06/26/2025 12:47:35 Plan of Treatment Reminders Order Date Submit Date Provider Last Modified By Organization Details Last Modified Time Details Appointments RECHECK 15 2025 02:30P M Bora Aranda MD Not available Not available Not available Lab None recorded. Referral physical therapist referral - Stretchin g, eccentric strengthe luis, ROM, modalitie s as tolerated . 2024 025 [email or web address] Not available 06/26/2025 12:39:01 Procedures None recorded. Surgeries None recorded. Imaging XR, femur, 1 view - rm 218 lt femur 2024 025 [email or web address] [facility] Office, [address], [address], [place], [address], 06/26/2025 12:39:01 Medication Orders None recorded. Patient TargetsNo [...] a4ajBk vP9nXo QUaueC m3YtLR FvZlgJ JJ8mAn HZtai3 1g9119 AC0KlY n2BUqC iKiQtr MwF INTERFACE [facility] Office [address] [facility] [address], [place], [address], 06/26/2025 11:31:40 06/26/2006/26/2025 XR, hip + pelvi s, unila teral , 2 or 3 view http:/ [email or web address] ?Encry pted=s hAaTro YD8dLq bEUv6g %2BXZw aYqtaq 0bqfl% 2Fg9IQ a4ajBk vP9nXo QUaueC m3YtLR FvZlgJ JJ8mAn HZtai3 2s0307 AC0KlY n2BUqC iKiQtr MwF INTERFACE [facility] [address] [facility] [address], [place], [address], 06/26/2025 11:31:42 Result Notes Documentation Provider Name and Address Organization Details Recorded Time Xr, Hip + Pelvis, Unilateral, 2 Or 3 View : [email or web address] Encrypted=dqFwUvpAC0lNzhX Uv6g%8UZDdlOniic3dujm%2Fg 3FAd5anPrsF0tAsGOkzfKj1Bm GJFqCkhRQE0bDnHSqnu13b161 2TX5JoSm6IWrTfQjSdaDwU Not Available [facility] 06/26/2025 11:31: 40 Xr, Hip + Pelvis, Unilateral, 2 Or 3 View : [email or web address] Encrypted=apHcFphAR6lIouR Uv6g%2YAEucUuoln1kvow%2Fg 3DMf1gxXfoE0mViZCxcdKc9Kt ZBCxEleXUG2uMxUZhfj33x517 8ON9MfZk5RXhMoEtHfmMkY Not Available [facility] 06/26/2025 11:31: 42 Problems Name Problem SNOMED Code Status Onset Date Resolution Date Notes Provider Name and Address Organization Details Recorded Time Degeneration of cervical intervertebr al disc 22357360 Active 2014 Problem Code: M50.30; Problem Code Type: ICD-10; Status: 'A'; Not Available [facility] 4 11:28:42 Problem Notes None recorded. Procedures Surgical History Date Name Laterality Status Provider Name and Address Organization Details Recorded Time 4 Elbow Kenalog 1cc Injection, L/R completed Arlet Royal MD [address] [place] [address] [address], [place], [address], [facility] 03/28/2024 13:49:56 3 operation on neck completed [facility] 06/30/2024 10:16:04 1 excision of distal clavicle completed [facility] 06/30/2024 10:16:44 Imaging Results None recorded. Procedure Notes None recorded. Medical Equipment None Reported. Allergies Allergen ID Allergen Name Allergen Category Reaction Reaction Severity Criticality Documentation Date Start Date Code Code System Note Provider Name and Address Organization Details Recorded Time 882938 nut - unspecifi ed food Not available Not available Not available 07/23/2024 NENA zaragoza [facility] 4 13:32:26 78612 morphine sulfate medicatio n Not available Not available Not available 11/12/20232015 85939 RxNorm Aller gyRea ction : 'Skin React ion'; Not Available [facility] 4 12:57:37 33964 gabapenti n medicatio n Not available Not available Not available 11/12/20232018 38579 RxNorm Not Available [facility] 4 12:57:37 17993 hazelnut allergeni c extract food Not available Not available Not available 11/12/20232014 86070 3 RxNorm Amarilys zaragoza [facility] 4 10:37:11 73647 adhesive tape environme nt,medica tion Not available Not available Not available 11/12/20232015 Not Available [facility] 4 12:57:37 71420 Product containin g penicilli n (product) medicatio n Not available Not available Not available 11/12/20232015 37191 8001 SNOMED Not Available [facility] 4 12:57:38 Medications Name Sig Start Date [...] Not Available Not Available No t Available [facility] spacer USE 1 DEVICE ONLY ONCE [...] Updated DateTime 06/26/2025 177.8 cm 37.3 kg/m2 107957.02 g NOEMI [facility] 06/29/2025 08:52:28 Social History Question Answer Notes LastModified by Organizat ion Details LastModified Time Tobacco Smoking Status Never Smoker MARTÍN zaragoza [place] - [place] [facility] 09/15/2024 11:21:48 Have You Ever Been Counseled [...] Thyroid Problems N COPD N Pacemaker N Kidney/Bladder Problems N Anemia N Vascular Disease N Heart Trouble N Heart Attack ([place]) N Gastrointestinal Disease N Cholesterol N Diabetes N Autoimmune disease N Inflammatory Joint disease N Bleeding Disorder N Orthotics N Seizures/Epilepsy N Arthritis Y Blood Clot N AIDS/HIV N Congestive Heart Failure (CHF) N Acid Reflux (GERD) N Cancer N Stroke N Asthma N Circulation Problems N Peripheral Vascular Disease N Sleep Apnea Y Hepatitis N Heart Disease N Rheumatoid Arthritis N Pulmonary Embolism N Arrhythmia N Headaches N Fibromyalgia N Hypertension N Osteoporosis N Past Encounters Encounter ID Performer Location Encounter Start Date Encounter Closed Date Diagnosis/Indication Diagnosis SNOMED-CT Code Diagnosis ICD10 Code Diagnosis IMO Codes Diagnosis Note [id number] MD NIRANJAN Luna [address] [place] [address] 06/26/2025 10:53:00 07/08/2025 14:43:42 Injury of left leg 6424903384 3435582 S76.112A [id number] Health Concerns Section Related Observation LastModified by Organization Detai ls LastModified Time None Recorded Concern Status LastModified by Organization Details LastModified Time None Recorded Payers Encounter Date Sequence Insurance Name Policy Number Policy Desouza Covered Member ID Desouza Member ID Guarantor Name 06/26/2025 1 [facility] - DOS ON OR AFTER 2022 - ONE CARE (MEDICARE REPLACEMENT/ADV ANTAGE - HMO) Jose Colvin [id number] Jose Colvin
--- OUTSIDE RECORDS SUMMARY | 2025-08-31 06:43 | XMS_ITS | Data Portability ---
Author Organization AMADA Sammy Montgomery [facility] Address [address] [place] [address] Care Team Providers Care Pipe Finishing Supervisor Name Role Phone BORA MANNING Primary Care [...] Medication Prescriptions: [none given] Plan/Follow up:6 weeks [facility] speech recognition photolithographic stripper software was used to create portions of [...] and restrictions, follow up with me porestes [facility] speech recognition photolithographic stripper software was used to create portions of [...] month ago while playing baseball at a [employer] outing. Two days ago, he experienced an [...] grossly intact. Eyes: Sclera are not blue. 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 Full extraocular motion. [...] Imaging: X-rays ordered, obtained and reviewed at [facility]. These images included 4 views [...] visit note. This note was generated with [facility] speech recognition photolithographic stripper dictation software. Please excuse any errors that may have been overlooked during review of this note. Sometimes, these errors may affect the content or meaning of a given sentence. Please call for corrections. [email or web address] Not available 06/26/2025 12:47:35 Plan of Treatment Reminders Order Date Submit Date Provider Last Modified By Organization Details Last Modified Time Details Appointments RECHECK 15 2025 02:30P M Bora Aranda MD Not available Not available Not available Lab None recorded. Referral physical therapist referral - Stretchin g, eccentric strengthe luis, ROM, modalitie s as tolerated . 2024 [email or web address] Not available 06/26/2025 12:39:01 Procedures None recorded. Surgeries None recorded. Imaging XR, femur, 1 view - rm 218 lt femur 2024 [email or web address] [facility] Office, [address], [place], [address], 06/26/2025 12:39:01 XR, knee, 3 view - 3v L knee. room 3 2024 025 [email or web address] [facility] Office, [address] [facility] [address], [place], [address], 10/30/2024 14:48:58 Medication Orders None recorded. Patient TargetsNo targets recorded. Patient InstructionsNo instructions recorded. Reason for Referral Physical Therapist Referral for Injury of left leg Stretching, eccentric strengthening, ROM, modalities as tolerated. Referring Physician: Paco Ramirez, Orthopedic Surgery, Encounter Date: 06/26/2025 Results Created Date Observation Date Name Description Value Unit Range Abnormal Flag Note LastModifiedBy Organization Detail LastModifiedTime 10/30/19 25 10/30/2024 XR, knee, 3 view [email or web address]:/ [email or web address] ?Encry pted=s hAaTro YD8dLq bEUv6g %2BXZw aYqtaq 0bqfl% 2Fg9IQ a4ajBk vP9nXo QUaueC m3YtLR FvZlgJ JJ8mAn HZtai3 7m3693 AC0Kqb XyNVqC jKiQtr MwF INTERFACE [facility] Office [address], [address], 10/30/2024 14:25:24 10/30/19 25 10/30/2024 XR, knee, 3 view [email or web address]:/ [email or web address] ?Encry pted=s hAaTro YD8dLq bEUv6g %2BXZw aYqtaq 0bqfl% 2Fg9IQ a4ajBk vP9nXo QUaueC m3YtLR FvZlgJ JJ8mAn HZtai3 2g5695 AC0Kqb XyNVqC jKiQtr MwF INTERFACE [facility] Office [address], [place], [address], 10/30/2024 14:25:26 06/26/2006/26/2025 XR, hip + pelvi s, unila teral , 2 or 3 view [email or web address]:/ [email or web address] ?Encry pted=s hAaTro YD8dLq bEUv6g %2BXZw aYqtaq 0bqfl% 2Fg9IQ a4ajBk vP9nXo QUaueC m3YtLR FvZlgJ JJ8mAn HZtai3 3k6550 AC0KlY n2BUqC iKiQtr MwF INTERFACE [facility] [address] [facility] [address], [place], [address], 06/26/2025 11:31:40 06/26/20 25 06/26/2025 XR, hip + pelvi s, unila teral , 2 or 3 view http:/ [email or web address] ?Encry pted=s hAaTro YD8dLq bEUv6g %2BXZw aYqtaq 0bqfl% 2Fg9IQ a4ajBk vP9nXo QUaueC m3YtLR FvZlgJ JJ8mAn HZtai3 8s5831 AC0KlY n2BUqC iKiQtr MwF INTERFACE [facility] [address] [facility] [address], [place], [address], 06/26/2025 11:31:42 Result Notes Documentation Provider Name and Address Organization Details Recorded Time Xr, Knee, 3 View : [email or web address] Encrypted=blFdQtqNA1uZluG Uv6g%0AXMruKmvqn4skux%2Fg 5LWe9wtZxtS1mPiBVfhgPd4Xh VXByIehYDM0rOpFXmpf09q721 8VX0QpvZyPLzOzSwYpoYsG Not Available [facility] 10/30/2024 14:25: 25 Xr, Knee, 3 View : [email or web address] Encrypted=gyTyMthRQ4pFteW Uv6g%3SCTawOwsqr9soma%2Fg 8CLs9agFdpG7oEmZGmzoUk1Hd DFOxQbnKCI1wDoZZquj03e842 3HX6AdgNfAKyRuTbQayFdH Not Available [facility] 10/30/2024 14:25: 27 Xr, Hip + Pelvis, Unilateral, 2 Or 3 View : [email or web address] Encrypted=ngImCktWI9eVwnJ Uv6g%6TUKxpMoklt2doqo%2Fg 4SCv9tnJqjR1pSvBDmynLc7Ii KBOtXefOJX6yYxEQqqu49i118 6VI4SfJo6VKnNaZnYcqWmP Not Available [facility] 06/26/2025 11:31: 40 Xr, Hip + Pelvis, Unilateral, 2 Or 3 View : [email or web address] Encrypted=knTrZukCR7eJgnB Uv6g%0WBGnqPexui2nghx%2Fg 0XXw2inIkhD9pFlUFsbuGg4Sb NJHgIugRNA5pSfHDkwd44z002 3JB3RbKi0EXePoJqQfaPxT Not Available [facility] 06/26/2025 11:31: 42 Problems Name Problem SNOMED Code Status Onset Date Resolution Date Notes Provider Name and Address Organization Details Recorded Time Degeneration of cervical intervertebr al disc 74864651 Active 2014 Problem Code: M50.30; Problem Code Type: ICD-10; Status: 'A'; Not Available [facility] 11:28:42 Problem Notes None recorded. Procedures Surgical History Date Name Laterality Status Provider Name and Address Organization Details Recorded Time 4 Elbow Kenalog 1cc Injection, L/R completed Arlet Royal MD [address] [place] [address], [place], [address], [facility] - [facility] 03/28/2024 13:49:56 3 operation on neck completed MAHAMED [facility] 06/30/2024 10:16:04 1 excision of distal clavicle completed MAHAMED [facility] 06/30/2024 10:16:44 Imaging Results None recorded. Procedure Notes None recorded. Medical Equipment None Reported. Allergies Allergen ID Allergen Name Allergen Category Reaction Reaction Severity Criticality Documentation Date Start Date Code Code System Note Provider Name and Address Organization Details Recorded Time 236257 nut - unspecifi ed food Not available Not available Not available 07/23/2024 NENA DOWELL [facility] 4 13:32:26 10758 morphine sulfate medicatio n Not available Not available Not available 11/12/20232015 62511 RxNorm Aller gyRea ction : 'Skin React ion'; Not Available [facility] 4 12:57:37 25466 gabapenti n medicatio n Not available Not available Not available 11/12/20232018 83408 RxNorm Not Available [facility] 4 12:57:37 64748 hazelnut allergeni c extract food Not available Not available Not available 11/12/20232014 47161 3 RxNorm Amarilys Greene [facility] 4 10:37:11 23341 adhesive tape environme nt,medica tion Not available Not available Not available 11/12/20232015 Not Available [facility] 4 12:57:37 98309 Product containin g penicilli n (product) medicatio n Not available Not available Not available 11/12/20232015 94548 8001 SNOMED Not Available [facility] 4 12:57:38 Medications Name Sig [...] Not Available No t Available Jonny Borges [facility] spacer USE 1 DEVICE ONLY [...] Updated DateTime 09/17/2024 175.26 cm 39.3 kg/m2 283735.57 g MARTÍN [place]'ABDIAS [facility] 09/17/2024 14:51:29 Date Recorded Body height Body mass index (BMI) Body weight Provider Name and Address Organization Details Last Updated DateTime 10/30/2024 175.26 cm 39.3 kg/m2 221716.57 g Samia Pichardo [facility] 10/30/2024 14:13:32 Date Recorded Body height Body mass index (BMI) Body weight Provider Name and Address Organization Details Last Updated DateTime 02/09/2025 175.26 cm 38.1 kg/m2 276482.83 g MAHAMED RETANA [facility] 02/09/2025 13:20:45 Date Recorded Body height Body mass index (BMI) Body weight Provider Name and Address Organization Details Last Updated DateTime 06/26/2025 177.8 cm 37.3 kg/m2 872933.02 g NOEMI COX [facility] 06/29/2025 08:52:28 Date Recorded Body height Body mass index (BMI) Body weight Provider Name and Address Organization Details Last Updated DateTime 09/01/2024 175.26 cm 39.3 kg/m2 982533.57 g Radha Collier [place] - [facility] 09/01/2024 12:58:15 Social History Question Answer Notes LastModified by Organizat ion Details LastModified Time Tobacco Smoking Status Never Smoker MARTÍN zaragoza [place] - [facility] 09/15/2024 11:21:48 Have You Ever Been [...] Disease N Heart Trouble N Heart Attack (MD) N Gastrointestinal Disease N Cholesterol N Diabetes [...] ICD10 Code Diagnosis IMO Codes Diagnosis Note [id number] MD Jaki Jameson [address] [place] [address] 03/28/2024 12:59:51 04/13/2024 17:05:35 Pain of right hand 9040810453 17517 M79.641 Bilateral elbow joint pain 7555998496 6521870 M25.521 Pain of le ft elbow joint 5850852036 8822171 M25.052 [id number] MD Kevon [facility] [address] [place], [place] [address] 06/30/2024 09:45:37 07/21/2024 15:38:47 Pain of left shoulder joint 2391040917 5741851 M25.512 437456 [id number] Ronny Mccarthy PA-C [facility] [address] [place] [address] 07/23/2024 13:29:05 08/22/2024 13:23:51 Disorder of shoulder 185640558 M25.819 569802 Tendinitis of left biceps brachii 4162501543 7105 M75.22 79983782 [id number] Raphael Rowland PA-C [facility] [address] [place] [address] 07/30/2024 00:22:37 08/27/2024 15:27:41 Follow-up status 602689983 Z51.89 48326 [id number] Ronny Mccarthy PA-C [facility] [address] [place] [address] 08/08/2024 15:18:24 09/11/2024 07:54:21 Biceps tendinitis 217010518 M75.22 [id number] MD Kevon [facility]on [facility] [address] [place], [place] [address] 09/01/2024 12:50:25 09/24/2024 07:44:28 Pain of right hand 3727473729 26367 M79.641 Pain of le ft elbow joint 9710922874 1774704 M25.522 Neuropathy 985674331 G62 .9 15754 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 5161200495 06962 G56.02 2937840 Left later al elbow tendinopathy 8390934027 49094 M77.12 4862807 [id number] Bora Aranda MD NIRANJAN - [facility] [address] [place] [address] 09/17/2024 14:34:26 09/29/2024 13:27:28 Bicipital tenosynovitis 53215556 M75.22 39577775 [id number] KATHARINE Ponce Clinical [address] [place], [place] [address] 10/30/2024 14:00:12 11/07/2024 10:50:50 Pain of left knee joint 7702005991 41346 M25.562 277357 Chondromal acia of left patella 8169247685 92286 M22.42 253654 [id number] MD NIRANJAN [facility] [address] [place] [address] 02/09/2025 12:50:30 02/13/2025 11:35:43 Impingement syndrome of left shoulder region 2324836774 99021 M75.42 96863520 [id number] MD NIRANJAN Luna [address] [place] [address] 06/26/2025 10:53:00 07/08/2025 14:43:42 Injury of left leg 5753366250 9958984 S76.112A [id number] Health Concerns Section Related Observation LastModified by Organization Detai ls LastModified Time None Recorded Concern Status LastModified by Organization Details LastModified Time None Recorded Advance Directives Directive None Recorded Payers Insurance Date Sequence Insurance Name Policy Number Policy Desouza Covered Member ID Desouza Member ID Guarantor Name 07/08/2025 1 [facility] - DOS ON OR AFTER 2022 - ONE CARE (MEDICARE REPLACEMENT/ADV ANTAGE - HMO) Jose Colvin [id number] Jose Colvin Notes Date Note Type Note [...] of this lateral epicondylitis. Arlet Royal MD [address], [place], [address], [facility] 09/01/2024 13:21:42 10/30/2024 text/html I am seeing [...] were ordered, obtained and reviewed today at [facility]. 3 views bilateral knees demonstrate [...] as symptoms dictate. Morro Johnson PA-C [address] [facility] [address], [place], [address], [facility] 10/30/2024 14:44:22
--- OUTSIDE RECORDS SUMMARY | 2025-08-31 06:43 | XMS_ITS | Clinical Summary ---
Author Organization [facility] ity Address [address] [place] [address] Care Team Providers Care Credit Collector Name Role Phone Miky Suggs Primary Care Provider [phone] Social History Tobacco Use Types Packs/Day Years [...] age to complete this topic Care Teams Credit Collector Relationship Specialty Start Date End Date Miky Suggs DO [address] [place] [address] PCP - General Orthopedic Surgery 01/05/16
--- NOTE | 2025-08-31 07:45 | A.OFFPC_ITS ---
Intake Visit Reasons: 1 mo follow up Allergies doxycycline (DOXYCYCLINE) Allergy (Intermediate, Verified 08/31/25 07:46) Hives, Rash morphine (MORPHINE) Allergy (Intermediate, Verified 08/31/25 07:46) CHEST PAIN Penicillins (PENICILLINS) Allergy (Intermediate, Verified 08/31/25 07:46) HIVES gabapentin Allergy (Mild, Verified 08/31/25 07:46) Rash bee pollen Allergy (Unknown, Verified 08/31/25 07:46) Swelling medical tape Allergy (Unknown, Verified 08/31/25 07:46) Rash naproxen Allergy (Unknown, Verified 08/31/25 07:46) Rash Sulfa (Sulfonamide Antibiotics) Allergy (Unknown, Verified 08/31/25 07:46) Tongue swelling, hives sulfamethoxazole (From Bactrim) Allergy (Unknown, Verified 08/31/25 07:46) Hives trimethoprim (From Bactrim) Allergy (Unknown, Verified 08/31/25 07:46) Hives Medication List - Last Reconciled 08/31/25 by ZI RodriguezP- albuterol sulfate 90 mcg/actuation 2 puffs PO Q2H PRN allopurinol 100 mg PO DAILY atorvastatin 10 mg PO DAILY 90 days blood sugar diagnostic (Kick Sport Verio test strips) Test blood sugar once a day blood-glucose meter (Kick Sport Verio Flex Start kit) As directed blood-glucose sensor (Universal FuelsStyle Galilea 3 Sensor device) apply new sensor every 14 days as directed blood-glucose,operations management trainee,cont (FreeStyle Galilea 3 Leon) as directed cetirizine 10 mg PO DAILY cholecalciferol (vitamin D3) 50 mcg PO DAILY 90 days colchicine 0.6 mg PO DAILY PRN 10 days cyclobenzaprine 5 mg PO TID PRN diclofenac sodium 75 mg PO BID PRN 30 days empty container (Needle Collection and Disposal [facility]) As directed ketoconazole 2% 1 appl topical DAILY 14 days lancets (Kick Sport Delica Plus Lancet) Test blood sugar once a day lisinopril 2.5 mg PO DAILY omeprazole 40 mg PO DAILY pregabalin 200 mg PO BID 30 days tirzepatide (Mounjaro) 10 mg (0.5 mL) subcut QWEEK Tobacco use date assessed: 02/06/23 HPI 1 mo follow up HPI Details History of Present Illness The patient is a 40 year old male presenting with ongoing left-sided abdominal discomfort and a change in bowel habits. He reports experiencing alternating periods of diarrhea and constipation. He notes intermittent hematochezia, but also has a history of hemorrhoids. Associated symptoms include a sensation of incomplete evacuation after bowel movements and episodes of near fecal incontinence. He denies any associated nausea, vomiting, fevers, or chills. His comorbidities include obesity. Review of Systems - Constitutional: Denies fevers and chil ls. - Gastrointestinal: Reports ongoing left -sided abdominal discomfort, alternating diarrhea and constipation, intermittent hematochezia, a sensation of incomplete stool evacuation, and near fecal incontinence. - Denies nausea and vomiting. Plan 1. Change In Bowel Habits Due to the patient's discomfort and change in bowel habits, a CT scan will be ordered. A referral will be placed to gastroenterology for further evaluation, including a possible early colonoscopy. Discussion Notes I have discussed with the patient that due to his symptoms, including abdominal discomfort and a notable change in bowel habits, further investigation is warranted. I informed him that I will be ordering a CT scan and referring him to a conical mixer for additional evaluation, which may include an early colonoscopy. Patient Instructions - We will order a CT scan of your abdome n to investigate your symptoms. - We are also referring you to a GI spec ialist for your change in bowel habits. - This specialist may recommend a colono scopy for further evaluation. [facility] Medical History Liver enzyme elevation Obesity (BMI 35.0-39.9 without comorbidity) Left lateral epicondylitis Controlled type 2 diabetes mellitus Type II diabetes mellitus Nail fungus Neck pain with history of cervical spinal surgery Failed back syndrome RLS (restless legs syndrome) Left carpal tunnel syndrome Medial epicondylitis, left elbow Severe persistent allergic asthma Surgical History History of surgery Hx of carpal tunnel repair Hx of elbow surgery History of back surgery Hx of neck surgery S/P debridement History of inguinal hernia repair History of shoulder surgery Family History Father Diabetes mellitus Substance use disorder Mother No problems noted. Maternal Grandmother CVD (cardiovascular disease) Cancer Brother Labral tear of hip joint Mental health disorder Sister Mental health disorder Son No problems noted. Daughter No problems noted. 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 Current occupational exposures/hazards: No Cognitive needs: No Hearing needs: No Vision needs: No Questionnaire Thrive Questionnaire Date Thrive assessed: 04/07/24 I am a: Patient What is your living situation today?: I have a steady place to live Within the past 12 months, did the food you bought not last and you didn't have the money to get more?: Never true Within the past 12 months, did you worry whether your food would run out before you got money to buy more?: Never true Do you have trouble paying for medicines?: No Do you have trouble getting transportation to medical appointments?: No Do you have trouble paying your heating and electricity bill?: No Do you have trouble taking care of your child, family member or friend?: No Do you have trouble with day-to-day activities such as bathing, preparing meals, shopping, managing finances, etc.?: No Are you currently unemployed and looking for a job?: No Are you interested in more education?: No Currently or been in a relationship where the following occur: No concerns reported THRIVE Score: 0 MANOHAR-7 AMB Questionnaire MANOHAR-7 Date MANOHAR - 7 assessed: 02/06/23 Source: Developed by Drs. Willis Martinez, Josee Tinsley, Wesly Nowak and colleagues, with an educational socrates from [employer]. Physical exam (Primary Care) Tobacco/Smoking Status: Tobacco use Status Tobacco use date assessed 02/06/23 08/31/25 07:45 Patient Tobacco Use Status Former Tobacco user 08/31/25 07:45 e-Cigarette/Vaping Use Former Use 08/31/25 07:45 Thrive Assessment: Date of Thrive Assessment Date Thrive assessed 04/07/24 08/31/25 07:45 Currently or been in a relationship where the following occur: No concerns reported Telehealth Telehealth Telehealth Platform: [facility] Location of provider rendering services: practice address Location of patient: address on file Patient Identification confirmed using: Name, : Yes Telehealth method: video Patient verbally consented to treatment: Yes Patient verbally consented to billing insurance company: Yes Patient informed of any privacy concerns related to visit: Yes Minutes spent on Phone/Video with Pt.: 10 Coding Level of Care Code Tele Est Pt Level 3 (43749) Diagnoses Abdominal pain R10.9 Assessment & Plan Assessment & Plan (1) Abdominal pain: Code(s): R10.9 - Unspecified abdominal pain Category: Medical Plan . Orders: Orders CT abdomen pelvis wo IV con Today R10.9 - Unspecified abdominal pain
== END 2025-08-31 09:23 | disposition home or self-care (01) ==
LOC: HO.HMCC 06:40
PROVIDERS: PCP Nurse Practitioner Family; Visit Provider Nurse Practitioner Family
DX: R10.9 Unspecified abdominal pain (principal)